=== PATIENT | female | born 1965 | race Caucasian/White ===

== ENCOUNTER → 2016-10-27 | Outpatient (CLI) | payer OTHER ==
[2016-10-27 17:23] LABS: BASO % 0.4 %; BASO ABS # 0.03 K/uL (0-0.2); COMPLETE YES; EOS % 2.1 %; HEMATOCRIT 39.8 % (37-47); IG% 0.1 %; LYMPH % 25.3 %; LYMPH ABS # 1.77 K/uL (1.2-3.4); MEAN CELL VOLUME 84.7 fL (80-100); MEAN CORPUSCULAR HEMOGLOBIN 27.4 pg (25-34); MEAN CORPUSCULAR HGB CONC 32.4 g/dl (32-36); MEAN PLATELET VOLUME 11.5 fL (7.4-10.4); MONO % 11.4 %; NEUT % 60.7 %; PLATELET COUNT 244 K/uL (130-400); WHITE BLOOD COUNT 6.99 K/uL (4.8-10.8)
[2016-10-27 17:33] LABS: ALT/SGPT 19 U/L (12-78); BLOOD UREA NITROGEN 14 mg/dl (7-18); CALCIUM 9.1 mg/dl (8.5-10.1); CARBON DIOXIDE 28 mmol/L (21-32); CHLORIDE 107 mmol/L (98-107); CHOLESTEROL 55 mg/dl (0-200); CREATININE 0.84 mg/dl (0.60-1.20); GLUCOSE 93 mg/dl (70-99); POTASSIUM 3.9 mmol/L (3.5-5.1); SODIUM 138 mmol/L (136-145)
[2016-10-27 17:44] LABS: ALB/GLOB RATIO 0.9 (0.9-2); ALKALINE PHOSPHATASE 73 U/L (45-117); AST/SGOT 21 U/L (15-37); CHOLESTEROL/HDL RATIO 0.9; HDL CHOLESTEROL 59 mg/dl; TRIGLYCERIDES 55 mg/dl (0-150); VERY LOW DENSITY LIPOPROT CALC 11 mg/dl
[2016-10-28 08:16] LABS: ESTIMATED AVERAGE GLUCOSE 108 mg/dl; HA1C FLAG Normal (Normal)
== END | disposition home or self-care (01) ==
LOC: C.LABPVFM 15:30
PROVIDERS: ATTEND Neuromusculoskeletal Medicine & OMM
DX: Z00.00 Encounter for general adult medical examination without abnormal findings (principal); I10 Essential (primary) hypertension

== ENCOUNTER 2019-01-09 17:18 | Observation (INO) ==
[2019-01-09 17:57] LABS: Basophils # (auto) 0.04 K/uL (0-0.2); Basophils % (auto) 0.4 %; Eosinophils # (auto) 0.08 K/uL (0-0.5); Eosinophils % (auto) 0.9 %; Hematocrit (blood only) 47.2 % (37-47); Hemoglobin 15.6 g/dL (12.0-16.0); Immature Granulocytes # (auto) 0.02 K/uL (0.00-0.02); Immature Granulocytes % (auto) 0.2 %; Lymphocytes # (auto) 2.26 K/uL (1.2-3.4); Lymphocytes % (auto) 24.7 %; Mean Corpuscular Hemoglobin 28.4 pg (25-34); Mean Corpuscular Hgb Conc 33.1 g/dL (32-36); Mean Platelet Volume 11.8 fL (7.4-10.4); Monocytes # (auto) 1.11 K/uL (0.11-0.59); Monocytes % (auto) 12.1 %; Neutrophils # (auto) 5.65 K/uL (1.4-6.5); Neutrophils % (auto) 61.7 %; Platelet Count 265 K/uL (130-400); RDW Coefficient of Variation 13.8 % (11.5-14.5); RDW Standard Deviation 42.9 fL (36.4-46.3); Red Blood Count 5.49 M/uL (4.2-5.4); White Blood Count 9.16 K/uL (4.8-10.8)
[2019-01-09] MEDS ORDERED: HydrALAZINE HCL 20 MG/ML VIAL IV STA ×2 (17:58→18:35)
[2019-01-09 18:10] LABS: Alanine Aminotransferase 71 U/L (12-78); Albumin Level 4.3 gm/dl (3.4-5.0); Aspartate Aminotransferase 26 U/L (15-37); BUN Creatinine Ratio 17.4 (10-20); Blood Urea Nitrogen 21 mg/dl (7-18); Calcium 10.3 mg/dl (8.5-10.1); Carbon Dioxide 24 mmol/L (21-32); Chloride 102 mmol/L (98-107); Est GFR (African American) 59.2; Glucose 99 mg/dl (70-99); Lipase 195 U/L (73-393); Potassium 3.4 mmol/L (3.5-5.1); Sodium 133 mmol/L (136-145)
[2019-01-09 18:15] LABS: Albumin Globulin Ratio 0.9 (0.9-2); Alkaline Phosphatase 79 U/L (45-117); Bilirubin,Total 0.5 mg/dl (0.2-1); Globulin 4.8 gm/dl (2.5-4.0); Total Protein 9.1 gm/dl (6.4-8.2); Troponin I < 0.015 ng/ml (0-0.045)
--- NOTE | 2019-01-09 18:28 | XRay Report ---
XR chest 1V portable HISTORY: 53 years-old Female Chest Pain acute atypical chest pain COMPARISON: None available TECHNIQUE: Portable AP view of the chest FINDINGS: Cardiomediastinal and hilar silhouettes are within normal limits. Minimal linear left basilar opaciti es suggest atelectasis versus scarring. There is no pneumothorax, pleural effusion, focal airspace co nsolidation or overt pulmonary edema. Bones of the chest appear grossly intact. Degenerative changes of the spine. IMPRESSION: No acute process. The above report was generated using voice recognition software. It may contain grammatical, syntax o r spelling errors. Electronically signed by: Jose Huertas M.D. 01/09/2019 6:27 PM
[2019-01-09] MEDS ORDERED: NITROGLYCERIN 2% OINTMENT 30GM TUBE EXT SCH (18:45)
[2019-01-09] MEDS ORDERED: POTASSIUM CHLORIDE 20 MEQ TABCR PO STA (18:45)
--- NOTE | 2019-01-09 20:08 | History & Physical Report ---
Date of Service January 09, 2019 Assessment & Plan (1) Hypertension: Annemarie is a 53-year-old female with a past medical history of hypertension who presents to the emergency department on referral from her primary care provider who noted hypertension with shortness of breath and bigeminy on office EKG. Hypertensive urgency Patient has a history of hypertension previously normalized on hydrochlorothiazide but which she has not taken in a year (switch to a homeopathic diuretic). She restarted her hydrochlorothiazide last week when she became shortness of breath has been taking it daily for several days, but was noted to have high blood pressure on her outpatient visit. She is unaware of what her blood pressure is been in the last year. On exam blood pressure in left arm was 229/103, right arm pressure 191/100 CT angio for evaluation of dissection given hypertension, pain between shoulder blades, and systolic pressure difference greater than 20 between arms. Continue hydrochlorothiazide 12.5 mg daily, plan to increase to 25 tomorrow. Slower change 2/2 potential for watershed. Hydralazine 10 mg p.o. every 4 hours PRN for systolic greater than 180, diastolic greater than 100 CBC every 3 days Family history of hypertension with hypothyroidism, TSH, free T4, T3 ordered. Referrable panel over reflex as with patient's clinical symptoms Shortness of breath Patient reportedly with hypertension due to fluid overload in the past, no history of pulmonary edema or leg swelling Persistent shortness of breath and exercise limitation despite resolution and cold-like symptoms last month Hypertension treatment as above TTE ordered as below Intermittent bigeminy with high PVC load Patient has new bigeminy on admitting EKG, during clinical exam bigeminy was not observed but high PVC burden every 3-8 beats was seen. 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 Patient reports she drinks 80+ ounces of water per day "half my body weight water per day " Target fluid intake approximately 60 ounces per day Oral potassium repletion, magnesium normal Phosphorus pending BMP daily DVT prophylaxis: SCDs Diet: Regular CODE STATUS: Full code Disposition: Med telemetry (2) Abnormal EKG: (3) Anemia: (4) Weakness: History of Present Illness Chief Complaint: Shortness of Breath, Bigeminy Primary Care Provider: VIRGIE Pickett Annemarie Fournier is a 53-year-old female with a past medical history of hypertension who presents to the emergency room by referral from her PCP who noted hypertension and bigeminy during an outpatient office visit. Patient reports that she is traveling in [place] last month when she had a "horrible cold" that last several weeks and during which she had shortness of breath and congestion. Her symptoms resolved in early to mid December, but she is continued to have severe exercise limitation and shortness of breath with exertion and walking. She denies any chest pain, chest pressure, jaw pain, shoulder pain but endorses a slight 1/10 back pain which feels like muscle pain in between her shoulder blades 2-3 times per day which lasts for couple seconds to a couple of minutes. She has not had any fevers, chills, or sweats. No rashes, skin changes, or insect bites. Patient reports she has a history of hypertension which was previously controlled with hydrochlorothiazide. This was prescribed about a year and a half ago, and following a hydrochlorothiazide 25 mg daily regimen her blood pressure normalized. Approximately 1 year ago she switched her hydrochlorothiazide for an sicz-llz-nbzterf herbal fluid pill as a natural alternative to medication. She had not been back to her primary care physician, and did not check her blood pressure so is unaware of what her blood pressure has been in the last several months. She started taking her hydrochlorothiazide again last week due to her shortness of breath and a feeling that she could "hear fluid in her lungs "when she breathes. She endorses 30 pound weight gain in the last year and a half following menopause. She reports she eats a clean diet which is low in salt and fat. She tries to drink half her body weight and water (80 ounces) every day. She reports she pees several times a day, clear. Family history: Maternal grandmother had hypertension. She does not know her mother's history, was adopted by her paternal grandmother. Endorses family history of hyperthyroid requiring ablation. Denies stroke, blood clots, heart attack. Medical history: Reviewed. Hypertension, anemia Medications: Hydrochlorothiazide 12.5 mg, recently restarted. 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 with her Tobacco: No current or former use Alcohol: Endorses drinking in college, no recent alcohol use Recreational drug: Denies. Supplements: Denies taking any steroids, creatine powders, or pre-workout powders. Takes vitamin supplements including vitamin D3, calcium, magnesium, vitamin B12, and iron daily. Allergies Allergy/AdvReac Type Severity Reaction Status Date / Time Penicillins Allergy Severe Turned blue Verified 01/09/19 18:07 egg AdvReac Intermediate Gastrointestinal Verified 01/09/19 18:07 Upset Home Medications Home Medications Medication Instructions Recorded Confirmed Type guaifenesin [Mucinex] 600 mg PO Q12H PRN 01/09/19 01/09/19 History hydrochlorothiazide 12.5 mg PO DAILY PRN 01/09/19 01/09/19 History iron 18 mg PO DAILY 01/09/19 01/09/19 History uyqogyhmiqxy-bxivvqvs-zfvhux 1 tab PO DAILY 01/09/19 01/09/19 History [Multivitamin 50 Plus] Past Med/Surg History Medical History Abnormal EKG Hypertension Surgical History No history of previous surgery Family History Other Diabetes Social History Preferred Language: Kyrgyz Communication Ability: Effective Economics Faculty Member Required: No Beliefs That Will Affect Care: None marital status: Single Current Living Situation: Spouse 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 NAD. Cooperative. Thought process linear, goal-directed. Speech fluent with normal prosody. HEENT: Atraumatic, normocephalic. External ear anatomy normal, external nose anatomy normal. Pupils equal and reactive to light and accommodation bilaterally. Extraocular movements intact without nystagmus. No nasolabial fold flattening or increased tone. Facial sensation and strength intact in all distributions. Mucous membranes moist. Posterior pharynx without erythema/exudate, uvula midline. No anterior or posterior cervical adenopathy, no clavicular adenopathy. Neck supple. Pulm: CTAB A&P. -wheezes, -rales, -rhonchi. Symmetrical chest rise. No increase work of breathing. No respiratory distress. Cardiac: RRR, -mrg. Radial pulses intact and symmetrical. PT pulses intact and symmetrical. Systolic blood pressure in left arm 229/103, right arm 190/90s. Abdominal: Nontender, nondistended, soft. BS present. Extremity: Sensation to soft touch intact in fingertips and hallux bilaterally and symmetrical. Finger flexion/extension, interosseous, wrist flexion/extension, elbow flexion/extension, shoulder flexion/extension/internal rotation/external rotation, hip flexion, knee flexion/extension, ankle plantarflexion/dorsiflexion intact with 5/5 strength bilaterally. Results & Data Vital Signs (Past 12 Hours) Vital Signs Temp Pulse Pulse Resp BP BP Pulse Ox 01/09/19 19:30 101 H 16 229/103 H 96 01/09/19 18:40 99 H 18 01/09/19 18:31 101 H 19 169/79 H 98 01/09/19 18:30 105 H 15 01/09/19 18:20 94 H 20 01/09/19 18:10 97 H 20 01/09/19 18:01 101 H 16 01/09/19 18:00 104 H 17 244/180 H 01/09/19 17:53 98 01/09/19 17:50 100 H 12 01/09/19 17:40 101 H 18 225/106 H 01/09/19 17:36 104 H 17 01/09/19 17:23 36.6 C 50 L 20 241/118 H 99 Code Status & VTE Plan VTE Prophylaxis Plan VTE Prophylaxis will be ordered: Yes Supervising Physician Co-Signing Physician Notes Patient seen and examined, chart reviewed, case discussed with Dr. Estrada and I agree with his assessment and plan as documented above. Briefly, patient is a 53-year-old female with history of hypertension. She was placed on HCTZ approximately 1.5 years ago with market improvement in blood pressure. She has since discontinue her HCTZ. Patient has been having some shortness of breath. She was seen in the outpatient setting and restart her HCTZ. She was found to be hypertensive with ventricular bigeminy during outpatient visit and was subsequently sent to the ER. On physical exam she is afebrile, tachycardic, hypertensive to 244/180, bigeminy noted on monitor and EKG Generalpatient quite anxious in appearance, nontoxic, resting comfortably in bed Skinwarm, dry, intact, no rashes/lesions HEENTnormocephalic/atraumatic, pupils equal round reactive to light, extraocular muscles intact, no papilledema noted on limited funduscopic exam, moist mucous membranes, neck supple, no thyromegaly, no JVD Heartplus S1/S2, irregularly irregular, bigeminy noted on monitor, pulses 2+, equal bilaterally, blood pressure discrepancy left upper extremity 228/123, right upper extremity 191/100 Lungsequal air entry bilaterally, no rales/rhonchi/wheezes Abdomenbowel sounds present, soft, nontender/nondistended Extremitieswarm, well-perfused, 2+ pulses, no edema Neurogrossly intact, patient awake alert and oriented x4, appropriate, speech intact, moving all extremities with 5 out of 5 strength Labs and images reviewed Sodium = 133, potassium = 3.4, BUN = 21, creatinine = 1.21, calcium = 10.3 Chest x-ray with no acute process CTA with no dissection or thoracic pathology Assessment/[id number]-63-ton[age]-old female with history of hypertension presenting with hypertensive urgency. Blood pressure 244/180 on presentation (map = 201). Patient asymptomatic at present, specifically no headache, visual changes, chest pain, shortness of breath, no papilledema noted on funduscopic exam albeit limited/nondilated. She has been complaining of intermittent interscapular pain, blood pressure discrepancy of roughly 30 points between extremitiesraises some concern for aortic dissection. CTA unremarkable. Thyroid studies within normal limits. -Patient with hypertensive urgency. No end organ dysfunction at this time - allows for slow correction of blood pressure with p.o. agents. -Continue HCTZ, will increase to 25 mg daily tomorrow. Patient may benefit from additional treatment with calcium channel corby or beta-corby given degree of hypertension as well as bigeminy. -P.o. hydralazine as needed -Check 2D echo -Check ionized calcium in a.m. -mildly elevated on chemistry today -Remainder of plan as above Resident Activity Tracking Resident Involvement: Resident Care Provided Care Provided: Adult Hospital Medicine (1) Anemia Anemia type: unspecified type Qualified Code(s): D64.9 - Anemia, unspecified
[2019-01-09] MEDS ORDERED: OPTIRAY 320 125ml IV PRN (20:40)
[2019-01-09] MEDS ORDERED: hydroCHLOROthiazide 25 MG TAB PO PRN (20:51)
[2019-01-09] MEDS ORDERED: HydrALAZINE 10 MG TAB PO PRN (20:51)
[2019-01-09] MEDS ORDERED: ACETAMINOPHEN 325 MG TAB PO PRN (20:51)
[2019-01-09] MEDS ORDERED: guaiFENesin 600 MG TABCR PO PRN (20:51)
[2019-01-09] MEDS ORDERED: HydrALAZINE 10 MG TAB PO STA (20:51)
[2019-01-09 21:21] LABS: Phosphorus 2.7 mg/dl (2.5-4.9); T4 Free Thyroxine 1.13 ng/dl (0.8-1.6); Thyroid Stimulating Hormone 2.08 uIu/ml (0.300-4.500)
--- NOTE | 2019-01-09 21:22 | CT Scan Report ---
CT angio chest dissec wo/w con HISTORY: 53 years-old Female r/o aortic dissection acute chest pain COMPARISON: Chest radiograph of same day TECHNIQUE: CTA of the chest was obtained both with and without the use of 120 mL Optiray 320 IV contr ast. 3-D coronal and sagittal MIPS were obtained from the axial data set and were submitted for revie w. All measurements were obtained according to NASCET criteria. A dose lowering technique was used co nsistent with the principals joycelyn ENGEL. FINDINGS: CTA CHEST: The noncontrast scan demonstrates no intramural hematoma. Mild calcified plaque of the thoracic aorti c arch and aortic annulus. Heart is mildly enlarged. No pericardial effusion. There is no thoracic ao rtic aneurysm or dissection. No mediastinal hematoma. Patency of the imaged great vessels. Reflux of contrast into the IVC and hepatic veins. The opacified pulmonary arterial tree is unremarkable. No ev idence of pulmonary thromboembolic disease. CT CHEST: Subcentimeter thyroid nodules measure up to 9 mm within the isthmus. No adenopathy by CT size criteri a. There are multiple indeterminate lesions noted about the breasts, left greater than right multiple which appear to be cystic measuring up to 2.1 cm and the inferior left breast. There is no pneumotho rax, pleural effusion or overt pulmonary edema. Mild linear subsegmental atelectasis/scarring of the inferior segment lingula. No focal airspace consolidation typical for pneumonia. There are no suspici ous pulmonary nodules or masses. 2 mm calcified granuloma of the left upper lobe. Central airways are patent. Mild nonspecific bilateral bronchial wall thickening. Moderate wall thickening of the distal esophagus with mild adjacent inflammatory stranding. Hypodense foci of the left hepatic lobe measuring up to 1.3 cm suggest probable cyst. Degenerative changes of the shoulders and spine. IMPRESSION: 1. Unremarkable CTA of the chest. 2. No adenopathy, pleural effusion or focal airspace consolidation typical for pneumonia. 3. Moderate wall thickening of the distal esophagus with mild adjacent inflammatory stranding. Correl ate clinically to exclude esophagitis. 4. Multiple lesions of the left greater than right bilateral breasts most of which appear to be cysti c. Finding should be correlated with mammography. The above report was generated using voice recognition software. It may contain grammatical, syntax o r spelling errors. Electronically signed by: Jose Huertas M.D. 01/09/2019 9:20 PM
--- NOTE | 2019-01-09 21:25 | Emergency Department Note ---
Entered by Sunil Lambert acting as a scribe for History of Present Illness General Chief complaint: Arrhythmia/Palpitations Stated complaint: IRREGULAR HEART BEAT Source: patient Limitations: no limitations History of Present Illness Location: chest Pain Consistency: + now resolved Maximum Pain Intensity: 1 Relieved By: + other (iron pills relieved dizziness) Exacerbated By: + movement Associated symptoms: + denies other symptoms (diarrhea, runny nose, congestion); no cough and no nausea/vomiting The patient is a 53 year old female who presents to the Emergency Room with complaints of now-resolved SOB. She states she has SOB with exertion. The patient states she went to see her PCP today and her PCP noticed she had an abnormal EKG and she was hypertensive so she was sent to the ED. The patient states she had a cough, congestion, and a runny nose on November 22. She states she was traveling and states she got back in early December and her symptoms resolved. She states she has been having some dizziness the past couple weeks but states it has resolved with iron pills. The patient denies headache, change of vision, nausea, vomiting, diarrhea, and chest pain. She states she recently started ACTZ 12.5 mg and states she was not it for a year. Home Medications Home Medications Medication Instructions Recorded Confirmed Type guaifenesin [Mucinex] 600 mg PO Q12H PRN 01/09/19 01/09/19 History hydrochlorothiazide 12.5 mg PO DAILY PRN 01/09/19 01/09/19 History iron 18 mg PO DAILY 01/09/19 01/09/19 History rjqxodhafwol-ulzryhrq-sutasb 1 tab PO DAILY 01/09/19 01/09/19 History [Multivitamin 50 Plus] Allergies Allergy/AdvReac Type Severity Reaction Status Date / Time Penicillins Allergy Severe Turned blue Verified 01/09/19 18:07 egg AdvReac Intermediate Gastrointestinal Verified 01/09/19 18:07 Upset Past Med/Surg History Medical History Abnormal EKG Hypertension Surgical History No history of previous surgery Family History Other Diabetes Social History Preferred Language: Kinyarwanda Communication Ability: Effective Office Communication Professor Required: No Beliefs That Will Affect Care: None marital status: Single Current Living Situation: Spouse 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 and A total of 10 systems reviewed and were otherwise negative Physical Exam Vital Signs Vital Signs - 24 hr 01/09/19 17:23 01/09/19 17:36 01/09/19 17:40 Temperature 36.6 C Temperature Source Oral Pulse Rate 50 L 104 H 101 H Pulse Rate [Right] Pulse Rhythm Regular Pulse Rhythm [Right] Pulse Strength Normal Pulse Strength [Right] Respiratory Rate 20 17 18 Respiratory Effort / Characteristics Non-Labored Spontaneous Respiratory Depth Normal Respiratory Pattern Regular Blood Pressure 241/118 H 225/106 H Blood Pressure [Right Arm] Blood Pressure Mean 159 162 Blood Pressure Mean [Right Arm] Blood Pressure Position Sitting Pulse Oximetry 99 Oxygen Delivery Method Room Air Sepsis Recent Fever Within 48 Hours No Sepsis New/Unexplained Change in Mental Status No Sepsis Action Taken by Nursing No Action Required 01/09/19 17:50 01/09/19 17:53 01/09/19 18:00 Temperature Temperature Source Pulse Rate 100 H 104 H Pulse Rate [Right] Pulse Rhythm Pulse Rhythm [Right] Pulse Strength Pulse Strength [Right] Respiratory Rate 12 17 Respiratory Effort / Characteristics Respiratory Depth Respiratory Pattern Blood Pressure 244/180 H Blood Pressure [Right Arm] Blood Pressure Mean 188 Blood Pressure Mean [Right Arm] Blood Pressure Position Pulse Oximetry 98 Oxygen Delivery Method Room Air Sepsis Recent Fever Within 48 Hours Sepsis New/Unexplained Change in Mental Status Sepsis Action Taken by Nursing 01/09/19 18:01 01/09/19 18:10 01/09/19 18:20 Temperature Temperature Source Pulse Rate 101 H 97 H 94 H Pulse Rate [Right] Pulse Rhythm Pulse Rhythm [Right] Pulse Strength Pulse Strength [Right] Respiratory Rate 16 20 20 Respiratory Effort / Characteristics Respiratory Depth Respiratory Pattern Blood Pressure Blood Pressure [Right Arm] Blood Pressure Mean Blood Pressure Mean [Right Arm] Blood Pressure Position Pulse Oximetry Oxygen Delivery Method Sepsis Recent Fever Within 48 Hours Sepsis New/Unexplained Change in Mental Status Sepsis Action Taken by Nursing 01/09/19 18:30 01/09/19 18:31 01/09/19 18:40 Temperature Temperature Source Pulse Rate 105 H 101 H 99 H Pulse Rate [Right] Pulse Rhythm Pulse Rhythm [Right] Pulse Strength Pulse Strength [Right] Respiratory Rate 15 19 18 Respiratory Effort / Characteristics Respiratory Depth Respiratory Pattern Blood Pressure 169/79 H Blood Pressure [Right Arm] Blood Pressure Mean 107 Blood Pressure Mean [Right Arm] Blood Pressure Position Pulse Oximetry 98 Oxygen Delivery Method Sepsis Recent Fever Within 48 Hours Sepsis New/Unexplained Change in Mental Status Sepsis Action Taken by Nursing 01/09/19 19:30 Temperature Temperature Source Pulse Rate Pulse Rate [Right] 101 H Pulse Rhythm Pulse Rhythm [Right] Regular Pulse Strength Pulse Strength [Right] Normal Respiratory Rate 16 Respiratory Effort / Characteristics Non-Labored Spontaneous Respiratory Depth Normal Respiratory Pattern Blood Pressure Blood Pressure [Right Arm] 229/103 H Blood Pressure Mean Blood Pressure Mean [Right Arm] 145 Blood Pressure Position Pulse Oximetry 96 Oxygen Delivery Method Room Air Sepsis Recent Fever Within 48 Hours Sepsis New/Unexplained Change in Mental Status Sepsis Action Taken by Nursing GENERAL: alert, well nourished, no distress, non-toxic. Sitting up in bed. EYE EXAM: normal conjunctiva, PERRL and EOM's intact OROPHARYNX: no exudate, no erythema, lips, buccal mucosa, and tongue normal and mucous membranes are moist NECK: supple, no nuchal rigidity, no adenopathy, non-tender LUNGS: Clear to auscultation. Normal chest wall mechanics HEART: no murmurs, S1 normal and S2 normal. Slightly irregular rhythm. ABDOMEN: abdomen soft, non-tender, normo-active bowel sounds, no masses, no rebound or guarding. BACK: Back is symmetrical on inspection and there is no deformity, no midline tenderness, no CVA tenderness. SKIN: no rashes and no bruising UPPER EXTREMITIES: upper extremities are grossly normal. LOWER EXTREMITIES: No pitting edema. NEURO EXAM: Normal sensorium, cranial nerves II-XII grossly intact, normal spe ech, no gross weakness of arms, no gross weakness of legs. Course Course ED COURSE: Vital signs were reviewed and showed HTN The patients medical record was reviewed The above diagnostic studies were performed and reviewed. ED treatments and interventions as stated above. 1754: The patient was evaluated in room C2B. A complete history and physical examination was performed. 1843: Upon reevaluation, the patient is getting admitted. I discussed my findings with the patient and she understands and agrees with the treatment plan. 1844: I discussed the patient's case with Dr. Marks - [facility] ist. He will evaluate the patient for further management Based on the patients age, coexisting illnesses, exam and lab findings the decision to treat as an inpatient was made. The patient remained stable while under my care. The patient will be evaluated for further management. Administered Medications Ioversol (Optiray 320 125ml) 120 ml IV ONCE PRN PRN Reason: Interaction Checking Stop: 01/13/19 20:39 Last Admin: 01/09/19 20:41 Dose: 120 ml Documented by: [id number] Discontinued Medications Hydralazine HCl (Hydralazine Hcl) 10 mg IV NOW STA Stop: 01/09/19 17:59 Last Admin: 01/09/19 18:18 Dose: 10 mg Documented by: [id number] Hydralazine HCl (Hydralazine Hcl) 10 mg IV NOW STA Stop: 01/09/19 18:36 Last Admin: 01/09/19 18:43 Dose: Not Given Documented by: [id number] Hydralazine HCl (Apresoline) 10 mg PO NOW STA Stop: 01/09/19 20:52 Last Admin: 01/09/19 21:26 Dose: 10 mg Documented by: [id number] Potassium Chloride (Klor-Con M20) 40 meq PO NOW STA Stop: 01/09/19 18:46 Last Admin: 01/09/19 19:29 Dose: 40 meq Documented by: [id number] Medical Decision Making Differential Diagnosis Differential diagnoses includes but is not limited to pneumonia, bronchitis, COPD/Asthma exacerbation, pneumothorax, pulmonary embolism, congestive heart failure, acute coronary syndrome Medical Records Attestation: I reviewed the patient's medical records. Home Medications Current Medication List: was personally reviewed by me Laboratory Data Attestation: I reviewed the patient's lab results. Result diagrams: 01/09/19 17:41 01/09/19 17:41 Lab Results 01/09/19 01/09/19 01/09/19 Range/Units 17:41 17:41 17:41 WBC 9.16 (4.8-10.8) K/uL RBC 5.49 H (4.2-5.4) M/uL Hgb 15.6 (12.0-16.0) g/dL Hct 47.2 H (37-47) % MCV 86.0 (80-100) fL MCH 28.4 (25-34) pg MCHC 33.1 (32-36) g/dL RDW Std Deviation 42.9 (36.4-46.3) fL RDW Coeff of Dmitry 13.8 (11.5-14.5) % Plt Count 265 (130-400) K/uL MPV 11.8 H (7.4-10.4) fL Immature Gran % (Auto) 0.2 % Neut % (Auto) 61.7 % Lymph % (Auto) 24.7 % [place] % (Auto) 12.1 % Eos % (Auto) 0.9 % Baso % (Auto) 0.4 % Immature Gran # (Auto) 0.02 (0.00-0.02) K/uL Neut # (Auto) 5.65 (1.4-6.5) K/uL Lymph # (Auto) 2.26 (1.2-3.4) K/uL [place] # (Auto) 1.11 H (0.11-0.59) K/uL Eos # (Auto) 0.08 (0-0.5) K/uL Baso # (Auto) 0.04 (0-0.2) K/uL Sodium 133 L (136-145) mmol/L Potassium 3.4 L (3.5-5.1) mmol/L Chloride 102 (98-107) mmol/L Carbon Dioxide 24 (21-32) mmol/L Anion Gap 7.0 (3-11) BUN 21 H (7-18) mg/dl Creatinine 1.21 H (0.6-1.2) mg/dl Est Cr Clr Drug Dosing 62.0 ml/min Est GFR ( Amer) 59.2 Est GFR (Non-Af Amer) 51.0 BUN/Creatinine Ratio 17.4 (10-20) Glucose 99 (70-99) mg/dl Calcium 10.3 H (8.5-10.1) mg/dl Phosphorus (2.5-4.9) mg/dl Magnesium 2.2 (1.8-2.4) mg/dl Total Bilirubin 0.5 (0.2-1) mg/dl AST 26 (15-37) U/L ALT 71 (12-78) U/L Alkaline Phosphatase 79 (45-117) U/L Troponin I < 0.015 (0-0.045) ng/ml Total Protein 9.1 H (6.4-8.2) gm/dl Albumin 4.3 (3.4-5.0) gm/dl Globulin 4.8 H (2.5-4.0) gm/dl Albumin/Globulin Ratio 0.9 (0.9-2) Lipase 195 (73-393) U/L TSH (0.300-4.500) uIu/ml Free T4 (0.8-1.6) ng/dl Total T3 (0.60-1.81) ng/ml Hepatitis C Ab Screen (Neg) 01/09/19 01/09/19 01/09/19 Range/Units 17:45 17:45 17:53 WBC (4.8-10.8) K/uL RBC (4.2-5.4) M/uL Hgb (12.0-16.0) g/dL Hct (37-47) % MCV (80-100) fL MCH (25-34) pg MCHC (32-36) g/dL RDW Std Deviation (36.4-46.3) fL RDW Coeff of Dmitry (11.5-14.5) % Plt Count (130-400) K/uL MPV (7.4-10.4) fL Immature Gran % (Auto) % Neut % (Auto) % Lymph % (Auto) % Page % (Auto) % Eos % (Auto) % Baso % (Auto) % Immature Gran # (Auto) (0.00-0.02) K/uL Neut # (Auto) (1.4-6.5) K/uL Lymph # (Auto) (1.2-3.4) K/uL [place] # (Auto) (0.11-0.59) K/uL Eos # (Auto) (0-0.5) K/uL Baso # (Auto) (0-0.2) K/uL Sodium (136-145) mmol/L Potassium (3.5-5.1) mmol/L Chloride (98-107) mmol/L Carbon Dioxide (21-32) mmol/L Anion Gap (3-11) BUN (7-18) mg/dl Creatinine (0.6-1.2) mg/dl Est Cr Clr Drug Dosing ml/min Est GFR ( Amer) Est GFR (Non-Af Amer) BUN/Creatinine Ratio (10-20) Glucose (70-99) mg/dl Calcium (8.5-10.1) mg/dl Phosphorus 2.7 (2.5-4.9) mg/dl Magnesium (1.8-2.4) mg/dl Total Bilirubin (0.2-1) mg/dl AST (15-37) U/L ALT (12-78) U/L Alkaline Phosphatase (45-117) U/L Troponin I (0-0.045) ng/ml Total Protein (6.4-8.2) gm/dl Albumin (3.4-5.0) gm/dl Globulin (2.5-4.0) gm/dl Albumin/Globulin Ratio (0.9-2) Lipase (73-393) U/L TSH 2.080 (0.300-4.500) uIu/ml Free T4 1.13 (0.8-1.6) ng/dl Total T3 0.85 (0.60-1.81) ng/ml Hepatitis C Ab Screen Neg (Neg) Imaging Data Radiologist's Impression: Radiology results as stated below per my review and the radiologist's interpretation: XR chest 1V portable HISTORY: 53 years-old Female Chest Pain acute atypical chest pain COMPARISON: None available TECHNIQUE: Portable AP view of the chest FINDINGS: Cardiomediastinal and hilar silhouettes are within normal limits. Minimal linear left basilar opacities suggest atelectasis versus scarring. There is no pneumothorax, pleural effusion, focal airspace consolidation or overt pulmonary edema. Bones of the chest appear grossly intact. Degenerative changes of the spine. IMPRESSION: No acute process. The above report was generated using voice recognition software. It may contain grammatical, syntax or spelling errors. Electronically signed by: Jose Huertas M.D. 01/09/2019 6:27 PM ECG Data Attestation: I personally reviewed and interpreted this ECG as follows: Indication: + palpitations Rate (beats per minute): 102 Rhythm: + sinus rhythm ECG Findings: + Bigeminy and + Other (Non-specific acute ST wave changes in inferior, anterior, and lateral leads) Comparison ECG Date: no prior available Blood Pressure Blood Pressure Findings: Elevated blood pressure Blood Pressure Disposition: Referred to patients primary care provider MDM Narrative Patient is a 53-year-old female that presents to the ER referred in by her PCP as she was having shortness of breath with exertion earlier this month which is now improved. She was found to be significantly hypertensive with systolic blood pressures in the 200s in the office and an EKG that showed bigeminy. Referred into the ER. Upon presentation here initial systolics were in the 210s and then they went to 240. IV was stable sputum was obtained and showed no significant leukocytosis or anemia. BMP with a mild hyponatremia and hypokal emia. LFTs bilirubin and troponin were negative. TSH lipase were unremarkable as well. Chest x-ray was unremarkable without any focal infiltrate. Patient was given IV fluids and IV hydralazine. Systolic blood pressure trended down to 180. This was an appropriate drop from 240. Did not give any additional medications at this time. She was monitored closely. Updated bedside. Discussed with the hospitalist admitted for hypertensive urgency associated with bigeminy. Impression & Plan Hypertensive urgency, Bigeminy, Abnormal EKG, Palpitations Discharge Plan Visit Data *Final* Discharge Date/Time: 01/09/19 20:21 Chief Complaint: Arrhythmia/Palpitations Stated Complaint: IRREGULAR HEART BEAT ED Provider: Jesús Panda Discharge Problem: Hypertensive urgency, Bigeminy, Abnormal EKG, Palpitations Patient Disposition: Admitted As Inpatient Discharge Instructions Interventions: ED Discharge Assessment Last Done: 01/09/19 20:21 The scribe's documentation has been prepared under my direction and personally reviewed by me in its entirety. I confirm that the note above accurately reflects all work, treatment, procedures, and medical decision making performed by me.
--- NOTE | 2019-01-09 23:27 | Billing Data ---
Coding Level of Care Code 60163 OBS Care - Level 3
[2019-01-10 07:03] LABS: Basophils # (auto) 0.03 K/uL (0-0.2); Basophils % (auto) 0.4 %; Eosinophils # (auto) 0.09 K/uL (0-0.5); Eosinophils % (auto) 1.2 %; Hematocrit (blood only) 43.5 % (37-47); Hemoglobin 14.5 g/dL (12.0-16.0); Immature Granulocytes # (auto) 0.01 K/uL (0.00-0.02); Immature Granulocytes % (auto) 0.1 %; Lymphocytes # (auto) 2.04 K/uL (1.2-3.4); Lymphocytes % (auto) 26.5 %; Mean Corpuscular Hemoglobin 28.7 pg (25-34); Mean Corpuscular Hgb Conc 33.3 g/dL (32-36); Mean Platelet Volume 11.3 fL (7.4-10.4); Monocytes # (auto) 0.92 K/uL (0.11-0.59); Monocytes % (auto) 11.9 %; Neutrophils # (auto) 4.61 K/uL (1.4-6.5); Neutrophils % (auto) 59.9 %; Platelet Count 228 K/uL (130-400); RDW Coefficient of Variation 14.1 % (11.5-14.5); RDW Standard Deviation 43.6 fL (36.4-46.3); Red Blood Count 5.06 M/uL (4.2-5.4)
[2019-01-10 07:37] LABS: BUN Creatinine Ratio 16.1 (10-20); Calcium 9.9 mg/dl (8.5-10.1); Creatinine Clr Calc Pharmacy 80.8 ml/min; Est GFR (African American) 82.4; Est GFR (Non-African American) 71.1; Potassium 3.8 mmol/L (3.5-5.1)
[2019-01-10] MEDS ORDERED: hydroCHLOROthiazide 25 MG TAB PO SCH (09:00)
[2019-01-10] MEDS ORDERED: CEROVITE ADV FORMULA TAB PO SCH (09:00)
--- NOTE | 2019-01-10 15:56 | Hospitalist Progress Note ---
Date of Service January 10, 2019 Assessment & Plan (1) Hypertensive urgency: Annemarie is a 53-year-old female with a PMHx of hypertension (not currently on medication) and iron deficiency anemia who was admitted for hypertensive urgency. Hypertensive urgency -Hx of HTN. Previously treated with HCTZ 25mg. Pt stopped taking it about a year ago, started herself on homeopathic diuretic. -No BP checks or PCP followups, except day of admission when back pain was concerning. Had seen PCP before that in 2017. BP in ED as high as systolic 240, with discordance >20 points between arms CTA with no evidence of dissection -Received 20mg hydralazine in ED and overnight. -One dose of HCTZ this AM, before switching to Lisinopril 20mg this PM due to K+ being on lower side and pt still in bigemeny. Hydralazine 10 mg p.o. every 4 hours PRN for systolic greater than 180, diastolic greater than 100 -continue to monitor Shortness of breath Patient denies this Hx currently. -continue to monitor. Intermittent bigeminy with high PVC load Patient with bigeminy on admitting EKG Troponin negative -stress echo pending Electrolyte abnormalities -Hypokalemia and hyponatremia noted on admission; currently resolved; likely secondary to pt's use of HCTZ for the last week when symptoms began. -Pt has since been switched to Lisinopril to lessen the risk for development Patient also reports she drinks 80+ ounces of water per day "half my body weight water per day " Target fluid intake approximately 60 ounces per day Replete electrolytes as needed DVT prophylaxis: SCDs Diet: Regular CODE STATUS: Full code Dispo: Home pending BP control; results of stress echo Supervising Physician Co-Signing Physician Notes Resident Physician Supervision Note: I independently interviewed and examined the patient and verified the johnson history and physical, reviewed labs and image studies, discussed the case with the resident Dr. Larsen and agree with the findings and care plan. Subjective Ms. George seen this AM. States her SOB has resolved; didn't really seem to think it was an issue at all. States the back pain is still present. 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 Has a Hx of anxiety in her 20s. States the hospital also makes her anxious. Denies any headache, changes to vision, cough, runny nose, sore throat, dizziness, weakness, chest pain, SOB, palpitations, abdominal pain, diarrhea or constipation, swelling in hands or feet or numbness or tingling anywhere. Review of Systems Review of Systems: All systems reviewed & are unremarkable except as noted in HPI & below Physical Exam Physical Exam: General: Alert, oriented. 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 Skin: No noted rashes or bruises Psych: Appropriate mood and affect Neuro: No gross deficits HEENT: NC/AT, PERRLA, EOMI, oropharynx moist. Chest: Nontender to palpation. CV: Irregularly irregular rhythm, No murmurs appreciated Resp: Breath sounds clear bilaterally, no increased effort of breathing. No crackles/rhonchi/rales. Abdomen: Soft, nontender, nondistended. No guarding. No organomegaly appreciated. Extremities: No edema in lower extremities bilaterally. Results & Data Vital Signs (Past 12 Hours) Vital Signs Temp Pulse Pulse Resp BP Pulse Ox 01/10/19 15:17 36.7 C 68 18 175/102 H 96 01/10/19 14:32 180/82 H 01/10/19 13:56 80 01/10/19 11:29 36.7 C 16 181/85 H 93 01/10/19 07:24 36.9 C 87 16 178/84 H 98 01/10/19 04:25 36.7 C 44 L 20 147/75 H 97 Laboratory Results Laboratory Results - last 24 hr 01/09/19 01/09/19 01/09/19 17:41 17:41 17:41 WBC 9.16 RBC 5.49 H Hgb 15.6 Hct 47.2 H MCV 86.0 MCH 28.4 MCHC 33.1 RDW Std Deviation 42.9 RDW Coeff of Dmitry 13.8 Plt Count 265 MPV 11.8 H Immature Gran % (Auto) 0.2 Neut % (Auto) 61.7 Lymph % (Auto) 24.7 [place] % (Auto) 12.1 Eos % (Auto) 0.9 Baso % (Auto) 0.4 Immature Gran # (Auto) 0.02 Neut # (Auto) 5.65 Lymph # (Auto) 2.26 [place] # (Auto) 1.11 H Eos # (Auto) 0.08 Baso # (Auto) 0.04 Sodium 133 L Potassium 3.4 L Chloride 102 Carbon Dioxide 24 Anion Gap 7.0 BUN 21 H Creatinine 1.21 H Est Cr Clr Drug Dosing 62.0 Est GFR ( Amer) 59.2 Est GFR (Non-Af Amer) 51.0 BUN/Creatinine Ratio 17.4 Glucose 99 Calcium 10.3 H Ionized Calcium Phosphorus Magnesium 2.2 Total Bilirubin 0.5 AST 26 ALT 71 Alkaline Phosphatase 79 Troponin I < 0.015 Total Protein 9.1 H Albumin 4.3 Globulin 4.8 H Albumin/Globulin Ratio 0.9 Lipase 195 TSH Free T4 Total T3 Hepatitis C Ab Screen 01/09/19 01/09/19 01/09/19 17:45 17:45 17:53 WBC RBC Hgb Hct MCV MCH MCHC RDW Std Deviation RDW Coeff of Dmitry Plt Count MPV Immature Gran % (Auto) Neut % (Auto) Lymph % (Auto) [place] % (Auto) Eos % (Auto) Baso % (Auto) Immature Gran # (Auto) Neut # (Auto) Lymph # (Auto) [place] # (Auto) Eos # (Auto) Baso # (Auto) Sodium Potassium Chloride Carbon Dioxide Anion Gap BUN Creatinine Est Cr Clr Drug Dosing Est GFR ( Amer) Est GFR (Non-Af Amer) BUN/Creatinine Ratio Glucose Calcium Ionized Calcium Phosphorus 2.7 Magnesium Total Bilirubin AST ALT Alkaline Phosphatase Troponin I Total Protein Albumin Globulin Albumin/Globulin Ratio Lipase TSH 2.080 Free T4 1.13 Total T3 0.85 Hepatitis C Ab Screen Neg 01/10/19 01/10/19 01/10/19 06:51 06:51 06:51 WBC 7.70 RBC 5.06 Hgb 14.5 Hct 43.5 MCV 86.0 MCH 28.7 MCHC 33.3 RDW Std Deviation 43.6 RDW Coeff of Dmitry 14.1 Plt Count 228 MPV 11.3 H Immature Gran % (Auto) 0.1 Neut % (Auto) 59.9 Lymph % (Auto) 26.5 [place] % (Auto) 11.9 Eos % (Auto) 1.2 Baso % (Auto) 0.4 Immature Gran # (Auto) 0.01 Neut # (Auto) 4.61 Lymph # (Auto) 2.04 [place] # (Auto) 0.92 H Eos # (Auto) 0.09 Baso # (Auto) 0.03 Sodium 137 Potassium 3.8 Chloride 107 Carbon Dioxide 25 Anion Gap 5.0 BUN 15 Creatinine 0.92 Est Cr Clr Drug Dosing 80.8 Est GFR ( Amer) 82.4 Est GFR (Non-Af Amer) 71.1 BUN/Creatinine Ratio 16.1 Glucose 90 Calcium 9.9 Ionized Calcium 1.21 Phosphorus Magnesium Total Bilirubin AST ALT Alkaline Phosphatase Troponin I Total Protein Albumin Globulin Albumin/Globulin Ratio Lipase TSH Free T4 Total T3 Hepatitis C Ab Screen 01/10/19 06:51 WBC RBC Hgb Hct MCV MCH MCHC RDW Std Deviation RDW Coeff of Dmitry Plt Count MPV Immature Gran % (Auto) Neut % (Auto) Lymph % (Auto) [place] % (Auto) Eos % (Auto) Baso % (Auto) Immature Gran # (Auto) Neut # (Auto) Lymph # (Auto) [place] # (Auto) Eos # (Auto) Baso # (Auto) Sodium Potassium Chloride Carbon Dioxide Anion Gap BUN Creatinine Est Cr Clr Drug Dosing Est GFR ( Amer) Est GFR (Non-Af Amer) BUN/Creatinine Ratio Glucose Calcium Ionized Calcium Phosphorus Magnesium Total Bilirubin AST ALT Alkaline Phosphatase Troponin I < 0.015 Total Protein Albumin Globulin Albumin/Globulin Ratio Lipase TSH Free T4 Total T3 Hepatitis C Ab Screen Medications Administered Home Medications guaifenesin [Mucinex] 600 mg PO Q12H PRN 01/09/19 [History Confirmed 01/09/19] hydrochlorothiazide 12.5 mg PO DAILY PRN 01/09/19 [History Confirmed 01/09/19] iron 18 mg PO DAILY 01/09/19 [History Confirmed 01/09/19] [id number] [Multivitamin 50 Plus] 1 tab PO DAILY 01/09/19 [History Confirmed 01/09/19] Active Medications Acetaminophen (Tylenol) 650 mg PO Q4H PRN PRN Reason: Pain or Fever Stop: 02/08/19 20:50 Guaifenesin (Mucinex) 600 mg PO Q12H PRN PRN Reason: Congestion Stop: 02/08/19 20:50 Hydralazine HCl (Apresoline) 10 mg PO Q4H PRN PRN Reason: hypertension Stop: 02/08/19 20:50 Ioversol (Optiray 320 125ml) 120 ml IV ONCE PRN PRN Reason: Interaction Checking Stop: 01/13/19 20:39 Last Admin: 01/09/19 20:41 Dose: 120 ml Documented by: Lisinopril (Zestril) 20 mg PO QAM ON LICENSE OF [facility] Stop: 02/09/19 15:29 Multivitamins/Minerals (Multivitamin W/ Minerals Tab) 1 tab PO DAILY ON LICENSE OF [facility] Stop: 02/09/19 08:59 Last Admin: 01/10/19 08:01 Dose: 1 tab Documented by: Resident Activity Tracking Resident Involvement: Resident Care Provided Care Provided: Adult Hospital Medicine
[2019-01-10] MEDS: LISINOPRIL 20 MG TAB PO SCH (17:23)
[2019-01-11 06:44] LABS: Basophils # (auto) 0.04 K/uL (0-0.2); Basophils % (auto) 0.5 %; Eosinophils # (auto) 0.18 K/uL (0-0.5); Eosinophils % (auto) 2.2 %; Hematocrit (blood only) 44.8 % (37-47); Hemoglobin 14.5 g/dL (12.0-16.0); Immature Granulocytes # (auto) 0.02 K/uL (0.00-0.02); Immature Granulocytes % (auto) 0.2 %; Lymphocytes % (auto) 24.4 %; Mean Corpuscular Hgb Conc 32.4 g/dL (32-36); Mean Corpuscular Volume 86.7 fL (80-100); Mean Platelet Volume 11.7 fL (7.4-10.4); Monocytes # (auto) 1.03 K/uL (0.11-0.59); Monocytes % (auto) 12.6 %; Neutrophils # (auto) 4.93 K/uL (1.4-6.5); Neutrophils % (auto) 60.1 %; Platelet Count 234 K/uL (130-400); RDW Coefficient of Variation 14.1 % (11.5-14.5); RDW Standard Deviation 44.3 fL (36.4-46.3); Red Blood Count 5.17 M/uL (4.2-5.4)
[2019-01-11 07:15] LABS: BUN Creatinine Ratio 15.1 (10-20); Calcium 9.6 mg/dl (8.5-10.1); Creatinine Clr Calc Pharmacy 52.5 ml/min; Est GFR (African American) 49.2; Est GFR (Non-African American) 42.4; Potassium 3.7 mmol/L (3.5-5.1)
[2019-01-11] MEDS: LISINOPRIL 20 MG TAB PO SCH (08:00)
[2019-01-11 08:32] VITALS: TEMP 98.4; O2SAT 96
[2019-01-11] MEDS ORDERED: CEROVITE ADV FORMULA TAB PO SCH (09:00)
[2019-01-11 11:10] VITALS: BP 163/84; PULSE 52
--- NOTE | 2019-01-11 17:18 | Discharge Summary ---
Date of Service January 11, 2019 Admission HPI Per Admitting Provider Annemarie Fournier is a 53-year-old female with a past medical history of hypertension who presents to the emergency room by referral from her PCP who noted hypertension and bigeminy during an outpatient office visit. Patient reports that she is traveling in [place] last month when she had a "horrible cold" that last several weeks and during which she had shortness of breath and congestion. Her symptoms resolved in early to mid December, but she is continued to have severe exercise limitation and shortness of breath with exertion and walking. She denies any chest pain, chest pressure, jaw pain, shoulder pain but endorses a slight 1/10 back pain which feels like muscle pain in between her shoulder blades 2-3 times per day which lasts for couple seconds to a couple of minutes. She has not had any fevers, chills, or sweats. No rashes, skin changes, or insect bites. Patient reports she has a history of hypertension which was previously controlled with hydrochlorothiazide. This was prescribed about a year and a half ago, and following a hydrochlorothiazide 25 mg daily regimen her blood pressure normalized. Approximately 1 year ago she switched her hydrochlorothiazide for an [id number] herbal fluid pill as a natural alternative to medication. She had not been back to her primary care physician, and did not check her blood pressure so is unaware of what her blood pressure has been in the last several months. She started taking her hydrochlorothiazide again last week due to her shortness of breath and a feeling that she could "hear fluid in her lungs "when she breathes. She endorses 30 pound weight gain in the last year and a half following menopause. She reports she eats a clean diet which is low in salt and fat. She tries to drink half her body weight and water (80 ounces) every day. She reports she pees several times a day, clear. Family history: Maternal grandmother had hypertension. She does not know her mother's history, was adopted by her paternal grandmother. Endorses family history of hyperthyroid requiring ablation. Denies stroke, blood clots, heart attack. Medical history: Reviewed. Hypertension, anemia Medications: Hydrochlorothiazide 12.5 mg, recently restarted. Surgical history: Tonsillectomy Social history: Former body former Lives in [place] with her Tobacco: No current or former use Alcohol: Endorses drinking in college, no recent alcohol use Recreational drug: Denies. Supplements: Denies taking any steroids, creatine powders, or pre-workout powders. Takes vitamin supplements including vitamin D3, calcium, magnesium, vitamin B12, and iron daily. Admission Exam Per Admitting Provider General: A&Ox3. NAD. Cooperative. Thought process linear, goal-directed. Speech fluent with normal prosody. HEENT: Atraumatic, normocephalic. External ear anatomy normal, external nose anatomy normal. Pupils equal and reactive to light and accommodation bilaterall y. Extraocular movements intact without nystagmus. No nasolabial fold flattening or increased tone. Facial sensation and strength intact in all distributions. Mucous membranes moist. Posterior pharynx without erythema/exudate, uvula midline. No anterior or posterior cervical adenopathy, no clavicular adenopathy. Neck supple. Pulm: CTAB A&P. -wheezes, -rales, -rhonchi. Symmetrical chest rise. No increase work of breathing. No respiratory distress. Cardiac: RRR, -mrg. Radial pulses intact and symmetrical. PT pulses intact and symmetrical. Systolic blood pressure in left arm 229/103, right arm 190/90s. Abdominal: Nontender, nondistended, soft. BS present. Extremity: Sensation to soft touch intact in fingertips and hallux bilaterally and symmetrical. Finger flexion/extension, interosseous, wrist flexion/extension, elbow flexion/extension, shoulder flexion/extension/internal rotation/external rotation, hip flexion, knee flexion/extension, ankle plantarflexion/dorsiflexion intact with 5/5 strength bilaterally. Principal Diagnosis Hypertensive Urgency Discharge Exam General: Alert, oriented. 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 Skin: No noted rashes or bruises Psych: Appropriate mood and affect Neuro: No gross deficits HEENT: NC/AT, PERRLA, EOMI, oropharynx moist. Chest: Nontender to palpation. CV: Irregularly irregular rhythm, No murmurs appreciated Resp: Breath sounds clear bilaterally, no increased effort of breathing. No crackles/rhonchi/rales. Abdomen: Soft, nontender, nondistended. No guarding. No organomegaly appreciated. Extremities: No edema in lower extremities bilaterally. Discharge Data Allergies Allergy/AdvReac Type Severity Reaction Status Date / Time Penicillins Allergy Severe Turned blue Verified 01/09/19 18:07 egg AdvReac Intermediate Gastrointestinal Verified 01/09/19 18:07 Upset Consultations 01/09/19 18:45 ED Decision to Admit Stat Ordered Studies 01/09/19 20:16 CT angio chest dissec wo/w con Urgent Hospital Course (1) Hypertensive urgency: Annemarie is a 53-year-old female with a PMHx of hypertension (not currently on medication) and iron deficiency anemia who was admitted for hypertensive urgency. Hypertensive urgency -Hx of HTN. Previously treated with HCTZ 25mg. Pt stopped taking it about a year ago, started herself on homeopathic diuretic. -No BP checks or PCP followups, except day of admission when back pain was concerning. Had seen PCP before that in 2017. BP in ED as high as systolic 240 CTA with no abnormalities and no evidence of dissection as patient was comp laining of pain radiating to her mid back -Received 20mg hydralazine in ED and overnight. Patient placed on Lisinopril 20mg this PM Patient in bigeminy throughout her admission, stress echo performed and no saleem abnormality but technically difficult study due to PVC-bigeminy Discussed case with Cardiology Dr. Palacios and Dr. Moyer they are happy to discharge patient with outpatient PCP follow up as well as cardiology follow up. REcommended starting metoprolol, but at time of discharge patient's pulse rate was only 52. Will defer starting beta corby to primary care team and/or cardiology as heart rate allows Intermittent bigeminy with high PVC load Patient with bigeminy on admitting EKG Troponin negative -stress echo technically difficult as noted above Recommend starting metoprolol as outpatient as pulse rate allows Electrolyte abnormalities -Hypokalemia and hyponatremia noted on admission; currently resolved; likely secondary to pt's use of HCTZ for the last week when symptoms began. -Pt has since been switched to Lisinopril to lessen the risk for development Patient also reports she drinks 80+ ounces of water per day "half my body weight water per day may be dilutional New medications: Lisinopril 20 mg Recommend outpatient follow up with PCP and cardiology Recommend starting metoprolol as allowed by BP Total Time Total Time Spent Total Time Spent (In Minutes): 45 Discharge Plan Discharge Items Patient Disposition: Home - Self-Care Reason For Visit: BIGEMINY,SHORTNESS OF BREATH Discharge Diagnosis: Bigeminy Ruled out for Acute coronary syndrome. Hypertensive Urgency Activity: Resume your previous activity Non-emergency contact: Primary Care Provider Call non-emergency contact if: you have any medication questions Follow-up/Referrals: Margarette Mahmood CRNP [Primary Care Provider] - Diet: Low Sodium (2gm) Addtl Attending Provider Instructions: Follow up with family physician in one week You will be starting one new medication lisinopril. Lisinopril is to lower your blood pressure it is generally well tolerated, but if you notice any lip or tongue swelling or new dry cough let your doctor know. She will also likely get some blood work to check your renal function as an out patient. I recommend getting a Blood pressure arm cuff to help monitor your blood pressures moving forward. Continue exercising and eating well and follow up with your primary care physician next week. I will provide her with a list of recommendations and let her know what we did here in the hospital. it was an absolute pleasure to meet you and I wish you nothing but the best moving forward. Good luck with ! Sincerely, Jesus Johnson MD Pending Studies at Discharge: No Stand-Alone Forms: My [facility], Smoking Cessation Medications and DC Order Prescriptions: New lisinopril 20 mg Tablet 20 mg PO QAM 30 Days Qty: 30 RF: 0 Continued iron 18 mg Tablet 18 mg PO DAILY RF: 0 Multivitamin 50 Plus Tablet 1 tab PO DAILY RF: 0 guaifenesin [Mucinex] 600 mg Tablet Extended Release 12hr 600 mg PO Q12H PRN (Reason: Congestion) RF: 0 Discontinued hydrochlorothiazide 12.5 mg Tablet 12.5 mg PO DAILY PRN (Reason: Fluid Retention) RF: 0 Discharge Orders: Discharge Order (Routine); Ordered 01/11/19 Ordered By: Rachell Soto Admission Data Admit Date/Time: 01/09/19 20:04 Attending Provider: Rachell Soto Admit Provider: Keron Estrada Primary Care Provider: Margarette Mahmood Other Providers: Jarred Marks ; Sunshine Galeano Other Interventions: Discharge Summary Assessment (RN) Last Done: 01/11/19 11:09 DC Date/Time DO NOT enter until pt leaves facility: 01/11/19 11:49 Supervising Physician Co-Signing Physician Notes Resident Physician Supervision Note: I independently interviewed and examined the patient and verified the johnson history and physical, reviewed labs and image studies, discussed the case with the resident Dr. Johnson and agree with the findings and care plan. Time spent in discharge 35 min Resident Activity Tracking Resident Involvement: Resident Care Provided Care Provided: Adult Hospital Medicine
== END 2019-01-11 11:49 | disposition home or self-care (01) ==
LOC: 2W 17:18 → ED 17:18 → SUATTDRO 20:04 → 2W 20:21

== ENCOUNTER 2020-06-05 21:56 | Inpatient (IN) ==
--- OUTSIDE RECORDS SUMMARY | 2020-06-05 21:58 | External Medical Summary | Continuity of Care Document ---
:1965 Author Name Zuhair M.D. Address Unavailable Unavailable , Care Team Providers Name Role Phone Unavailable Unavailable Unavailable [email or web address] Radha CABRERA Unavailable Unavailable Unavailable Unavailable Unavailable Problems Sinus arrhythmia (427.89) (I49.8) Essential hypertension (401.9) (I10) Poor dentition (525.9) (K08.9) Allergies and Adverse Reactions Penicillins (Allergy) Reaction: Anaphyla xis Medications Apple Cider Vinegar CAPS , M.D. Refills: 0 Co Q 10 CAPS , M.D. Refills: 0 Arginine TABS , M.D. Refills: 0 [place]-3 CAPS , M.D. Refills: 0 hydroCHLOROthiazide 25 MG Oral Tablet; TAKE 1 TABLET DAILY. DO Vito Cabrera Start: 27-Oct-2016 Quantity: 30 Refills: 5 Centrum Adults Oral Tablet , M.D. Refills: 0 Vitamin C 500 MG Oral Capsule , M.D. Refills: 0 Procedures History of tonsillectomy with adenoidectomy Status: Completed History of myringotomy with tube placement Status: Completed History of complete colonoscopy Status: Completed History of endoscopy Status: Completed History of dental implant procedure Stat us: Completed Immunizations Immunizations not documented Family History Unknown Family Member Adopted person (V68.89) (Z02.82) Status: Active Comment s: Other Social History - Smoking Status Never smoked tobacco Plan of Treatment Planned Observations Planned Goals not documented Results No Known Results Results not documented
--- OUTSIDE RECORDS SUMMARY | 2020-06-05 21:59 | External Medical Summary | Continuity of Care Document ---
:1965 Author Name Zuhair M.D. Address Unavailable Unavailable , Care Team Providers Name Role Phone Unavailable Unavailable Unavailable Rick [email or web address] Radha CABRERA Unavailable Unavailable Unavailable Unavailable Unavailable Problems Essential hypertension (401.9) (I10) Poor dentition (525.9) (K08.9) Sinus arrhythmia (427.89) (I49.8) Allergies and Adverse Reactions Penicillins (Allergy) Reaction: Anaphyla xis Medications [place]-3 CAPS , M.D. Refills: 0 Arginine TABS , M.D. Refills: 0 Co Q 10 CAPS , M.D. Refills: 0 Apple Cider Vinegar CAPS , M.D. Refills: 0 Centrum Adults Oral Tablet , M.D. Refills: 0 Vitamin C 500 MG Oral Capsule , M.D. Refills: 0 hydroCHLOROthiazide 25 MG Oral Tablet; TAKE 1 TABLET DAILY. DO Vito Cabrera Start: 27-Oct-2016 Quantity: 30 Refills: 5 Procedures History of tonsillectomy with adenoidectomy Status: [...]
[2020-06-05] MEDS ORDERED: hydrALAZINE HCL 20 MG/ML VIAL IV STA (22:29)
--- NOTE | 2020-06-05 22:42 | Emergency Department Note ---
History of Present Illness General Chief complaint: Hypertension Stated complaint: HYPERTENSION Time Seen by Provider: 06/05/20 22:05 History of Present Illness This is a 55-year-old female presenting to the emergency department for evaluation of elevated blood pressure. The patient has a history of breast canc er and is currently on chemotherapy treatments. The patient states that she previously was on 4 different blood pressure medications, losartan, hydrochlorothiazide, amlodipine, and metoprolol. After her last chemotherapy she had some lightheadedness and dizziness with persistent blood pressure of roughly 95/50. A few days ago the patient saw her family doctor and dropped her down just to the losartan. She evidently had an echocardiogram yesterday and her blood pressure was in the 130s over 90s. She states tonight she kept checking her blood pressure and around 5 PM it was 150/90, and then was ultimately 190/90, prompting her to come to the ER for evaluation. The patient is not having any headache, neck pain, chest pain, chest tightness, or shortness of breath. She did take a 5 mg amlodipine before coming to the ER. The patient rates her overall discomfort a 1/10. She does have an upcoming appointment on Sunday, 2 days from now, with her family doctor. Home Medications Medication Instructions Recorded Confirmed Type losartan 100 mg PO DAILY 06/05/20 06/05/20 History metoprolol succinate 50 mg PO QAM #7 tab 06/06/20 Rx Allergies Allergy/AdvReac Type Severity Reaction Status Date / Time Penicillins Allergy Severe Turned blue Verified 06/05/20 22:07 egg AdvReac Intermediate Gastrointestinal Verified 06/05/20 22:07 Upset Past Med/Surg History Medical History (Updated 06/07/20 @ 03:34 by iNck Rodriguez PA-C) Abnormal EKG Breast cancer Hypertension Patient on antineoplastic chemotherapy regimen Surgical History No history of previous surgery Family History Other Diabetes Denies family history of COPD (chronic obstructive pulmonary disease) Social History Smoking Status: Never smoker Hx Alcohol Use: No Hx Substance Use: No Preferred Language: Estonian Communication Ability: Effective [employer]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 Required: No Beliefs That Will Affect Care: None marital status: Single Current Living Situation: Spouse 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 Feels Safe at Home: Yes Assistive Devices: None Review of Systems A total of 10 systems reviewed and were otherwise negative Physical Exam Vital Signs Vital Signs - 24 hr 06/05/20 21:58 Temperature 36.4 C L Temperature Source Temporal Artery Scan Pulse Rate 87 Respiratory Rate 18 Respiratory Depth Normal Blood Pressure 217/105 H Blood Pressure Mean 142 Blood Pressure Position Lying Pulse Oximetry 100 Oxygen Delivery Method Room Air Sepsis Recent Fever Within 48 Hours No Sepsis New/Unexplained Change in Mental Status No Sepsis Action Taken by Nursing No Action Required VITALS: Vitals are noted on the nurse's note and reviewed by myself. Vital signs with notably elevated blood pressure GENERAL: Well-developed, well-nourished, white female, who is in no acute distress and resting comfortably. Patient is cooperative with the examination. HEAD: Normocephalic atraumatic. NECK: Supple without nuchal rigidity. No lymphadenopathy. No thyromegaly. Ce rvical spine is nontender. HEART: Regular rate and rhythm without murmurs gallops or rubs. LUNGS: Clear to auscultation bilaterally without wheezes, rales or rhonchi. No retractions or accessory muscle use. ABDOMEN: Positive normal bowel sounds x 4. Soft, nontender, without masses or organomegaly. No guarding or rebound tenderness. MUSCULOSKELETAL: No muscle atrophy, erythema, or edema noted. Full range of motion in all extremities. Course Administered Medications Discontinued Medications Acetaminophen (Acetaminophen 325 Mg Tab) 650 mg PO Q4H PRN PRN Reason: Pain or Fever Stop: 07/06/20 04:33 Last Admin: 06/06/20 08:53 Dose: 650 mg Documented by: [id number] Enoxaparin Sodium (Enoxaparin Inj 40 Mg/0.4 Ml Syr) 40 mg SQ Q24H [facility] Stop: 07/06/20 08:59 Last Admin: 06/06/20 08:55 Dose: 40 mg Documented by: [id number] Hydralazine HCl (Hydralazine Hcl 20 Mg/Ml Vial) 10 mg IV NOW STA Stop: 06/05/20 22:30 Last Admin: 06/05/20 22:57 Dose: 10 mg Documented by: [id number] Hydralazine HCl (Hydralazine Hcl 20 Mg/Ml Vial) 5 mg IV NOW ONE Stop: 06/06/20 01:22 Last Admin: 06/06/20 01:33 Dose: 5 mg Documented by: [id number] Sodium Chloride (Nss 1000ml) 1,000 mls @ 100 mls/hr IV .Q10H DANUTA Stop: 06/06/20 14:33 Last Infusion: 06/06/20 14:57 Dose: 0 mls/hr Documented by: [id number] Admin: 06/06/20 04:44 Dose: 100 mls/hr Documented by: [id number] Labetalol HCl (Labetalol Hcl Iv 5 Mg/Ml 20ml) 10 mg IV NOW STA Stop: 06/06/20 02:55 Last Admin: 06/06/20 03:07 Dose: 10 mg Documented by: [id number] Cosigned by: [id number] Losartan Potassium (Losartan Potassium 50 Mg Tab) 100 mg PO DAILY DANUTA Stop: 07/06/20 08:59 Last Admin: 06/06/20 08:54 Dose: 100 mg Documented by: [id number] Metoprolol Succinate (Metoprolol Succ 25mg Ext Rel Tab) 25 mg PO NOW STA Stop: 06/06/20 02:56 Last Admin: 06/06/20 03:14 Dose: 25 mg Documented by: [id number] Metoprolol Succinate (Metoprolol Succ 50mg Ext Rel Tab) 50 mg PO QA DANUTA Stop: 07/06/20 08:59 Last Admin: 06/06/20 08:55 Dose: 50 mg Documented by: [id number] Potassium Chloride (Potassium Chloride Crtab 20 Meq Tabcr) 20 meq PO NOW STA Stop: 06/06/20 09:28 Last Admin: 06/06/20 10:39 Dose: 20 meq Documented by: [id number] Medical Decision Making Differential Diagnosis Differential diagnosis includes, but is not limited to: Myocardial infarction, dysrhythmia, pericarditis, pneumothorax, aortic aneurysm/dissection, DVT/PE, anxiety, GERD, PUD, electrolyte imbalance, thyroid disorder, pneumonia, bronchitis, pancreatitis, and others Laboratory Data Result diagrams: 06/06/20 07:17 06/06/20 07:17 Lab Results 06/05/20 06/05/20 06/05/20 Range/Units 22:48 22:48 22:48 WBC 13.40 H (4.8-10.8) K/uL RBC 3.95 L (4.2-5.4) M/uL Hgb 11.2 L (12.0-16.0) g/dL Hct 33.9 L (37-47) % MCV 85.8 (80-100) fL MCH 28.4 (25-34) pg MCHC 33.0 (32-36) g/dL RDW Std Deviation 40.8 (36.4-46.3) fL RDW Coeff of Dmitry 13.4 (11.5-14.5) % Plt Count 191 (130-400) K/uL MPV 10.6 H (7.4-10.4) fL Immature Gran % (Auto) 2.8 % Neut % (Auto) 79.5 % Lymph % (Auto) 9.3 % [place] % (Auto) 7.6 % Eos % (Auto) 0.4 % Baso % (Auto) 0.4 % Neut # (Auto) 10.65 H (1.4-6.5) K/uL Lymph # (Auto) 1.24 (1.2-3.4) K/uL [place] # (Auto) 1.02 H (0.11-0.59) K/uL Eos # (Auto) 0.06 (0-0.5) K/uL Baso # (Auto) 0.05 (0-0.2) K/uL Immature Gran # (Auto) 0.38 H (0.00-0.02) K/uL Toxic Granulation 1+ Polychromasia 1+ Sodium 140 (136-145) mmol/L Potassium 3.7 (3.5-5.1) mmol/L Chloride 108 H (98-107) mmol/L Carbon Dioxide 26 (21-32) mmol/L Anion Gap 5.0 (3-11) BUN 9 (7-18) mg/dl Creatinine 0.78 (0.6-1.2) mg/dl Est Cr Clr Drug Dosing 90.3 ml/min Est GFR ( Amer) 99.2 Est GFR (Non-Af Amer) 85.6 BUN/Creatinine Ratio 11.2 (10-20) Glucose 94 (70-99) mg/dl Calcium 10.0 (8.5-10.1) mg/dl Magnesium 1.9 (1.8-2.4) mg/dl Total Bilirubin 0.3 (0.2-1) mg/dl AST 28 (15-37) U/L ALT 39 (12-78) U/L Alkaline Phosphatase 128 H (45-117) U/L Troponin I 0.016 (0-0.045) ng/ml NT-Pro-B Natriuret Pep 715 (0-900) pg/ml Total Protein 7.9 (6.4-8.2) gm/dl Albumin 3.9 (3.4-5.0) gm/dl Globulin 4.0 (2.5-4.0) gm/dl Albumin/Globulin Ratio 1.0 (0.9-2) TSH 4.720 H (0.300-4.500) uIu/ml Free T4 1.04 (0.8-1.6) ng/dl Urine Color Yellow Urine Appearance Clear (Clear) Urine pH 7.0 (4.5-7.5) Ur Specific [place] 1.004 (1.000-1.030) Urine Protein Negative (Negative) Urine Glucose (UA) Negative (Negative) Urine Ketones Negative (Negative) Urine Blood Negative (Negative) Urine Nitrite Negative (Negative) Urine Bilirubin Negative (Negative) Urine Urobilinogen Negative (Negative) Ur Leukocyte Esterase Negative (Negative) COVID-19 Eval Order SARS-CoV-2 (PCR) (Negative) Influenza Type A (PCR) (Neg) Influenza Type B (PCR) (Neg) RSV (RT-PCR) (Neg) 06/06/20 06/06/20 06/06/20 Range/Units 00:42 01:38 01:38 WBC (4.8-10.8) K/uL RBC (4.2-5.4) M/uL Hgb (12.0-16.0) g/dL Hct (37-47) % MCV (80-100) fL MCH (25-34) pg MCHC (32-36) g/dL RDW Std Deviation (36.4-46.3) fL RDW Coeff of Dmitry (11.5-14.5) % Plt Count (130-400) K/uL MPV (7.4-10.4) fL Immature Gran % (Auto) % Neut % (Auto) % Lymph % (Auto) % [place] % (Auto) % Eos % (Auto) % Baso % (Auto) % Neut # (Auto) (1.4-6.5) K/uL Lymph # (Auto) (1.2-3.4) K/uL [place] # (Auto) (0.11-0.59) K/uL Eos # (Auto) (0-0.5) K/uL Baso # (Auto) (0-0.2) K/uL Immature Gran # (Auto) (0.00-0.02) K/uL Toxic Granulation Polychromasia Sodium (136-145) mmol/L Potassium (3.5-5.1) mmol/L Chloride (98-107) mmol/L Carbon Dioxide (21-32) mmol/L Anion Gap (3-11) BUN (7-18) mg/dl Creatinine (0.6-1.2) mg/dl Est Cr Clr Drug Dosing ml/min Est GFR ( Amer) Est GFR (Non-Af Amer) BUN/Creatinine Ratio (10-20) Glucose (70-99) mg/dl Calcium (8.5-10.1) mg/dl Magnesium (1.8-2.4) mg/dl Total Bilirubin (0.2-1) mg/dl AST (15-37) U/L ALT (12-78) U/L Alkaline Phosphatase (45-117) U/L Troponin I 0.038 (0-0.045) ng/ml NT-Pro-B Natriuret Pep (0-900) pg/ml Total Protein (6.4-8.2) gm/dl Albumin (3.4-5.0) gm/dl Globulin (2.5-4.0) gm/dl Albumin/Globulin Ratio (0.9-2) TSH (0.300-4.500) uIu/ml Free T4 (0.8-1.6) ng/dl Urine Color Urine Appearance (Clear) Urine pH (4.5-7.5) Ur Specific [place] (1.000-1.030) Urine Protein (Negative) Urine Glucose (UA) (Negative) Urine Ketones (Negative) Urine Blood (Negative) Urine Nitrite (Negative) Urine Bilirubin (Negative) Urine Urobilinogen (Negative) Ur Leukocyte Esterase (Negative) COVID-19 Eval Order [facility]FluRsv at [facility] SARS-CoV-2 (PCR) NEGATIVE (Negative) Influenza Type A (PCR) Negative (Neg) Influenza Type B (PCR) Negative (Neg) RSV (RT-PCR) Negative (Neg) ECG Data Attestation: I personally reviewed and interpreted this ECG as follows: Additional Comments: Sinus rhythm with frequent Premature ventricular complexes @[address] elevation Possible Left atrial enlargement Poor R wave progression, consider anterior MD vs. lead placement vs. LVH Abnormal ECG When compared with ECG of 09-JAN-2019 17:34, T wave inversion now evident in Anterior leads MDM Narrative Physical exam and history were performed. Nursing notes, EMR, and Medication List were personally reviewed. Patient appears to have elevated blood pressure readings at home after medication changes. The patient is quite hypertensive on arrival to the [facility]. IV access was established and labs were obtained. She was given IV hydralazine and placed on the research/program director. EKG does not show acute ST elevation, however there is concern for some T wave inversion that was not previously present. An order was placed for continuous cardiac monitoring. The monitor shows a rate of 84 with normal sinus rhythm. The patient's blood work is as above and was reviewed. She has mildly elevated white blood cell count of 13,000. She does not have a significant anemia or gross electrolyte imbalance. Transaminases are not diagnostic. The patient's initial troponin is 0.016, which is higher than her baseline which is undetectable. A repeat 2-hour troponin was performed and is increasing, and is 0.038. The patient did have rapid improvement of her blood pressure after the initial dose of hydralazine, however after roughly 90 minutes she began to feel flushed and her blood pressure went up again. She was given an additional dose of hydralazine. The patient was reevaluated multiple times throughout the course of her stay. Seeing is that she has an upward trending troponin with EKG changes I do not feel sending her home is appropriate. [facility] the patient here in the department. Please see their dictation for further patient course, plan, and disposition. The chart was completed utilizing [employer] Voice Recognition Software. Grammatical errors, random word insertions, pronoun errors, and incomplete sentences are an occasional consequence of this system due to software limitations, ambient noise, and hardware issues. Any formal questions or conc erns about the content, text, or information contained within the body of this dictation should be directly addressed to the provider for clarification. . Impression & Plan Hypertensive urgency, Patient on antineoplastic chemotherapy regimen Discharge Plan Visit Data Chief Complaint: Hypertension Stated Complaint: HYPERTENSION ED Provider: Alanis John ED Midlevel Provider: Nick Rodriguez Discharge Problem: Hypertensive urgency, Patient on antineoplastic chemotherapy regimen Patient Disposition: Admitted As Inpatient Discharge Instructions Interventions: ED Discharge Assessment Last Done: 06/06/20 04:04
[2020-06-05 23:07] LABS: Hematocrit (blood only) 33.9 % (37-47); Hemoglobin 11.2 g/dL (12.0-16.0); Mean Corpuscular Hemoglobin 28.4 pg (25-34); Mean Corpuscular Volume 85.8 fL (80-100); Mean Platelet Volume 10.6 fL (7.4-10.4); Platelet Count 191 K/uL (130-400); RDW Coefficient of Variation 13.4 % (11.5-14.5); RDW Standard Deviation 40.8 fL (36.4-46.3); Red Blood Count 3.95 M/uL (4.2-5.4)
[2020-06-05 23:08] LABS: Appearance Urine Clear (Clear); Bilirubin Urine Negative (Negative); Blood Urine Negative (Negative); Color Urine Yellow; Glucose Urine UA Negative (Negative); Ketones Urine Negative (Negative); Leukocyte Esterase Urine Negative (Negative); Nitrite Urine Negative (Negative); Protein Urine Negative (Negative); Specific Gravity Urine 1.004 (1.000-1.030); Urobilinogen Urine Negative (Negative)
[2020-06-05 23:24] LABS: Albumin Level 3.9 gm/dl (3.4-5.0); BUN Creatinine Ratio 11.2 (10-20); Creatinine Clr Calc Pharmacy 90.3 ml/min; Est GFR (African American) 99.2; Est GFR (Non-African American) 85.6; Magnesium 1.9 mg/dl (1.8-2.4); Potassium 3.7 mmol/L (3.5-5.1)
[2020-06-05 23:34] LABS: Basophils # (auto) 0.05 K/uL (0-0.2); Basophils % (auto) 0.4 %; Bilirubin,Total 0.3 mg/dl (0.2-1); Eosinophils # (auto) 0.06 K/uL (0-0.5); Eosinophils % (auto) 0.4 %; Immature Granulocytes # (auto) 0.38 K/uL (0.00-0.02); Immature Granulocytes % (auto) 2.8 %; Lymphocytes # (auto) 1.24 K/uL (1.2-3.4); Lymphocytes % (auto) 9.3 %; Monocytes # (auto) 1.02 K/uL (0.11-0.59); Monocytes % (auto) 7.6 %; Neutrophils # (auto) 10.65 K/uL (1.4-6.5); Neutrophils % (auto) 79.5 %; Polychromasia 1+; Thyroid Stimulating Hormone 4.72 uIu/ml (0.300-4.500); Total Protein 7.9 gm/dl (6.4-8.2); Toxic Granulation 1+; Troponin I 0.016 ng/ml (0-0.045)
[2020-06-05 23:47] LABS: T4 Free Thyroxine 1.04 ng/dl (0.8-1.6)
[2020-06-06] MEDS ORDERED: hydrALAZINE HCL 20 MG/ML VIAL IV ONE (01:21)
[2020-06-06 02:35] LABS: Influenza A virus by PCR Negative (Neg); Influenza B virus by PCR Negative (Neg); RSV by PCR Negative (Neg); SARS CoV2 RNA(COVID-19) InHosp NEGATIVE (Negative)
[2020-06-06] MEDS ORDERED: LABETALOL HCL IV 5 MG/ML 20ML IV STA (02:54)
[2020-06-06] MEDS ORDERED: METOPROLOL SUCC 25MG EXT REL TAB PO STA (02:55)
[2020-06-06] MEDS ORDERED: ONDANSETRON INJ 2 MG/ML 2 ML VIAL IV PRN (04:34)
[2020-06-06] MEDS ORDERED: LABETALOL HCL IV 5 MG/ML 20ML IV PRN (04:34)
[2020-06-06] MEDS ORDERED: NITROGLYCERIN SL 0.4 MG/TAB TAB SL PRN (04:34)
[2020-06-06] MEDS ORDERED: POLYETHYLENE (MIRALAX) 17 GM PACK PO PRN (04:34)
[2020-06-06] MEDS ORDERED: ACETAMINOPHEN 325 MG TAB PO PRN (04:34)
[2020-06-06] MEDS ORDERED: SODIUM CHLORIDE 0.9% 1000ML 1,000 ML IV SCH (04:34)
--- NOTE | 2020-06-06 07:28 | History and Physical Report ---
DATE OF ADMISSION: 06/06/2020 CHIEF COMPLAINT: Elevated blood pressure. HISTORY OF PRESENT ILLNESS: This is a 55-year-old female with past medical history significant for hypertension, PVCs, history of breast cancer diagnosed in March 2020, currently on chemo. Plan for surgery later. She had second chemo 3 days ago. After her second chemo, her blood pressure dropped very low. She saw her PCP and she is on amlodipine, hydrochlorothiazide, losartan and Toprol-XL. Except for losartan, all other medications were stopped and since then her blood pressure started to slowly climb up. Yesterday, she felt her diastolic was going up and she had echocardiogram as outpatient. During that time, her diastolic was going high. Her EF was found to be 60%, but in the evening her diastolic was going more than 100 and she decided to come to the ER. In the ER, blood pressure was in the 160s to 180 range systolic and more than 110 diastolic. Received hydralazine and we were called for admission. Currently resting comfortably and hemodynamically stable. She is saying she is micturating a lot. Denies any chest pain, no shortness of breath, no cough, no fever, no chills, no headache, no blurred visions, no earache, no runny nose. Appetite is okay. No nausea. Normal bowel movements. Currently resting comfortably and hemodynamically stable. ALLERGIES: PENICILLIN, EGG. PAST MEDICAL HISTORY: As mentioned above. PAST SURGICAL HISTORY: Colonoscopy, EGDs, ultrasound-guided breast biopsy. MEDICATIONS: Currently taking only losartan 100 mg p.o. daily and Compazine 10 mg p.o. q. 6 hours p.r.n. FAMILY HISTORY: Significant for maternal aunt has breast cancer. SOCIAL HISTORY: . No smoking, no alcohol, no drug use. REVIEW OF SYSTEMS: As per HPI. Rest of the review of systems negative. PHYSICAL EXAMINATION: GENERAL: The patient is of moderate build, not in acute distress. VITAL SIGNS: Temperature 36.4, pulse 109, respiratory rate 14, blood pressure 154/106, oxygen 99% on room air. HEENT: Pupils equal, round, and reactive to light. Oral mucosa dry. NECK: No JVD, no neck masses. CARDIOVASCULAR: S1, S2 heard. Regular rate and rhythm, no murmur, no gallop. RESPIRATORY SYSTEM: Normal AP diameter. No accessory muscle use. No wheezing, no crackles. ABDOMEN: Soft, bowel sounds present, nontender. No distention. CENTRAL NERVOUS SYSTEM: Cranial nerves II through XII grossly intact, nonfocal. EXTREMITIES: No edema, no erythema. LABORATORY DATA: WBC 15.4, hemoglobin 11.2, hematocrit 33.9, platelets 191. Sodium 140, potassium 3.7, chloride 108, bicarbonate 26, BUN 9, creatinine 0.7, serum glucose 94, calcium 10, magnesium 1.9, total bilirubin 0.3, AST 28, ALT 39, alkaline phosphatase 128. Troponin I of 0.038. BNP 715. TSH is 4.7, free T4 of 1.04. Urinalysis negative. SARS-CoV-2 PCR negative. Influenza A and B PCR negative. RSV PCR negative. EKG Sinus rhythm with frequent PVC at rate of 91.T wave inversions in anterior leads ASSESSMENT AND PLAN: This is a 55-year-old female who presents with hypertensive urgency. 1. Hypertensive urgency: The patient was on amlodipine, losartan, hydrochlorothiazide, Toprol-XL at home, but her blood pressure dropped few days back after her second chemo and family doctor stopped all other medications except for losartan. Now comes with hypertensive urgency. Troponin trending up though not in abnormal range. Received hydralazine in the ER. Will continue with her home losartan, restart on Toprol-XL. Placed on labetalol p.r.n. and monitor. The patient says she took amlodipine before coming to the hospital. If the blood pressure is not controlled with losartan and Toprol-XL, will restart amlodipine and hydrochlorothiazide. Monitor in the [employer] tele.Follow repeat ekg.Follow troponin.Recent echo on 06/04/20 is unremarkable. 2. History of PVCs, restarted Toprol-XL. We will follow the EKG. 3. History of breast cancer: Currently getting chemo, follows with hematology/oncology. 4. Deep venous thrombosis prophylaxis: Lovenox. DISPOSITION: Closely monitor in the med tele. Expect to discharge home and follow with family doctor. Level 1 full code. MTDD
[2020-06-06 07:35] LABS: Basophils # (auto) 0.03 K/uL (0-0.2); Basophils % (auto) 0.2 %; Eosinophils # (auto) 0.01 K/uL (0-0.5); Eosinophils % (auto) 0.1 %; Hematocrit (blood only) 32.2 % (37-47); Hemoglobin 10.6 g/dL (12.0-16.0); Immature Granulocytes # (auto) 0.27 K/uL (0.00-0.02); Lymphocytes % (auto) 6.8 %; Mean Corpuscular Hemoglobin 28.3 pg (25-34); Mean Corpuscular Hgb Conc 32.9 g/dL (32-36); Mean Corpuscular Volume 85.9 fL (80-100); Mean Platelet Volume 10.6 fL (7.4-10.4); Monocytes # (auto) 1.31 K/uL (0.11-0.59); Monocytes % (auto) 9.9 %; Neutrophils # (auto) 10.66 K/uL (1.4-6.5); Platelet Count 189 K/uL (130-400); RDW Coefficient of Variation 13.7 % (11.5-14.5); RDW Standard Deviation 40.6 fL (36.4-46.3); Red Blood Count 3.75 M/uL (4.2-5.4); White Blood Count 13.18 K/uL (4.8-10.8)
[2020-06-06 08:01] LABS: BUN Creatinine Ratio 9.4 (10-20); Calcium 9.4 mg/dl (8.5-10.1); Creatinine Clr Calc Pharmacy 105.1 ml/min; Est GFR (African American) 115.3; Est GFR (Non-African American) 99.4; Magnesium 1.9 mg/dl (1.8-2.4); Potassium 3.6 mmol/L (3.5-5.1)
[2020-06-06 08:06] LABS: Troponin I 0.018 ng/ml (0-0.045)
[2020-06-06] MEDS ORDERED: METOPROLOL SUCC 50MG EXT REL TAB PO SCH (09:00)
[2020-06-06] MEDS ORDERED: LOSARTAN POTASSIUM 50 MG TAB PO SCH (09:00)
[2020-06-06] MEDS ORDERED: ENOXAPARIN INJ 40 MG/0.4 ML SYR SQ SCH (09:00)
[2020-06-06] MEDS ORDERED: POTASSIUM CHLORIDE CRTAB 20 MEQ TABCR PO STA (09:27)
--- NOTE | 2020-06-06 13:05 | Electrocardiogram Report ---
Test Reason : Blood Pressure : / mmHG Vent. Rate : 091 BPM Atrial Rate : 091 BPM P-R Int : 156 ms QRS Dur : 090 ms QT Int : 400 ms P-R-T Axes : 067 063 059 degrees QTc Int : 492 ms Sinus rhythm with frequent Premature ventricular complexes Possible Left atrial enlargement Poor R wave progression, consider anterior DC vs. lead placement vs. LVH Abnormal ECG When compared with ECG of 09-JAN-2019 17:34, T wave inversion now evident in Anterior leads Confirmed by Dany Boothe ([id number]) on 06/06/2020 1:05:10 PM Referred By: REFERRED SELF Confirmed By:Cheko Boothe
--- NOTE | 2020-06-06 13:12 | Electrocardiogram Report ---
Test Reason : Blood Pressure : / mmHG Vent. Rate : 083 BPM Atrial Rate : 083 BPM P-R Int : 168 ms QRS Dur : 076 ms QT Int : 442 ms P-R-T Axes : 063 040 043 degrees QTc Int : 519 ms Sinus rhythm with frequent Premature ventricular complexes Nonspecific ST and T wave abnormality Prolonged QT Abnormal ECG When compared with ECG of 05-JUN-2020 22:36, (unconfirmed) Borderline criteria for Anterior infarct are no longer Present Confirmed by Dany Boothe ([id number]) on 06/06/2020 1:11:36 PM Referred By: REFERRED SELF Confirmed By:Cheko Boothe
--- NOTE | 2020-06-06 16:52 | Discharge Summary ---
Date of Service June 06, 2020 Admission HPI Per Admitting Provider This is a 55-year-old female with past medical history significant for hypertension, PVCs, history of breast cancer diagnosed in March 2020, currently on chemo. Plan for surgery later. She had second chemo 3 days ago. After her second chemo, her blood pressure dropped very low. She saw her PCP and she is on amlodipine, hydrochlorothiazide, losartan and Toprol-XL. Except for losartan, all other medications were stopped and since then her blood pressure started to slowly climb up. Yesterday, she felt her diastolic was going up and she had echocardiogram as outpatient. During that time, her diastolic was going high. Her EF was found to be 60%, but in the evening her diastolic was going more than 100 and she decided to come to the ER. In the ER, blood pressure was in the 160s to 180 range systolic and more than 110 diastolic. Received hydralazine and we were called for admission. Currently resting comfortably and hemodynamically stable. She is saying she is micturating a lot. Denies any chest pain, no shortness of breath, no cough, no fever, no chills, no headache, no blurred visions, no earache, no runny nose. Appetite is okay. No nausea. Normal bowel movements. Currently resting comfortably and hemodynamically stable. Admission Exam Per Admitting Provider GENERAL: The patient is of moderate build, not in acute distress. VITAL SIGNS: Temperature 36.4, pulse 109, respiratory rate 14, blood pressure 154/106, oxygen 99% on room air. HEENT: Pupils equal, round, and reactive to light. Oral mucosa dry. NECK: No JVD, no neck masses. CARDIOVASCULAR: S1, S2 heard. Regular rate and rhythm, no murmur, no gallop. RESPIRATORY SYSTEM: Normal AP diameter. No accessory muscle use. No wheezing, no crackles. ABDOMEN: Soft, bowel sounds present, nontender. No distention. CENTRAL NERVOUS SYSTEM: Cranial nerves II through XII grossly intact, nonfocal. EXTREMITIES: No edema, no erythema. Principal Diagnosis Hypertensive urgency Discharge Exam GENERAL: The patient is of moderate build, not in acute distress. HEENT: NC/AT, Pupils equal, round, and reactive to light. Oral mucosa dry. NECK: No JVD, no neck masses. CARDIOVASCULAR: S1, S2 heard. Regular rate and rhythm, no murmur, no gallop. RESPIRATORY SYSTEM: Normal AP diameter. No accessory muscle use. No wheezing, no crackles. ABDOMEN: Soft, bowel sounds present, nontender. No distention. NEURO: Alert and oriented and answering questions appropriately. Speech fluent, no facial symmetry, moves extremities spontaneously EXTREMITIES: No edema, no erythema. Discharge Data Allergies Allergy/AdvReac Type Severity Reaction Status Date / Time Penicillins Allergy Severe Turned blue Verified 06/05/20 22:07 egg AdvReac Intermediate Gastrointestinal Verified 06/05/20 22:07 Upset Consultations 06/06/20 01:35 ED Decision to Admit Stat Hospital Course (1) Hypertensive urgency: (2) Palpitations: (3) Bigeminy: (4) Patient on antineoplastic chemotherapy regimen: (5) Breast cancer: This is a 55-year-old female who presents with hypertensive urgency. 1. Hypertensive urgency: The patient was on amlodipine, losartan, hydrochlorothiazide, Toprol-XL at home, but her blood pressure dropped few days back after her second chemo and family doctor stopped all other medications except for losartan. Now comes with hypertensive urgency. Troponin trending up though not in abnormal range. Received hydralazine in the ER. Will continue with her home losartan, restart on Toprol-XL. Placed on labetalol p.r.n. and monitor. The patient says she took amlodipine before coming to the hospital. If the blood pressure is not controlled with losartan and Toprol-XL, will restart amlodipine and hydrochlorothiazide. Monitor in the med tele.Follow repeat ekg.Follow troponin.Recent echo on 06/04/20 is unremarkable. Patient's blood pressure has been controlled throughout the day, current blood pressure 148/94. Recommend to continue losartan and metoprolol succinate. Patient has history of frequent PVCs, bigeminy, also this is seen on her telemetry. Patient reports previously had palpitations on admission, now denies having any chest pain or palpitations. Seems that patient would benefit from beta-corby. Blood pressure control may be difficult with ongoing chemotherapy and her reaction to chemotherapy/low blood pressure. For now recommend to continue losartan and metoprolol, and to monitor blood pr essure at home. If her blood pressure would be increasing, she can take small dose of amlodipine again at home. Patient has a follow-up scheduled with family doctor on Sunday, tomorrow. She says that she is supposed to get blood work done and chemotherapy on Sunday. We will have her follow-up with her healthcare providers. 2. History of PVCs, restarted Toprol-XL. As above. 3. History of breast cancer: Currently getting chemo, follows with hematology/oncology. DVT prophylaxis: Lovenox. Dispo: home w/ family. Follow up w/ PCP and oncology. Total Time Total Time Spent Total Time Spent (In Minutes): 35 Total Time Includes: Examination of the Patient, Discharge Planning and Medication Reconciliation Discharge Plan Discharge Items Patient Disposition: Home - Self-Care Reason For Visit: HYPERTENSION Discharge Diagnosis: Hypertensive urgency Activity: Per Instructions section Non-emergency contact: Primary Care Provider and Specialist Call non-emergency contact if: you have any medication questions and your symptoms worsen Follow-up/Referrals: Gema Avila MD [Primary Care Provider] - Diet: Heart Healthy Addtl Attending Provider Instructions: Take losartan and metoprolol succinate daily. Monitor your blood pressure at home, and keep a record of these numbers. If you develop elevated blood pressure at home in the evening, take 2.5 mg of amlodipine. Discuss all the medication changes with your healthcare providers. The appointment with your primary care doctor is scheduled for you for tomorrow, Sunday, June 07. Pending Studies at Discharge: No Stand-Alone Forms: My [facility] [place], Smoking Cessation Medications and DC Order Prescriptions: New metoprolol succinate 50 mg Tablet Extended Release 24 Hr 50 mg PO QAM Qty: 7 RF: 0 Continued losartan 100 mg tablet 100 mg PO DAILY RF: 0 Discharge Orders: Discharge Order (Routine); Ordered 06/06/20 Ordered By: Guerrero Zuniga Admission Data Admit Date/Time: 06/06/20 02:54 Attending Provider: Guerrero Zuniga Admit Provider: Graeme Wyatt Primary Care Provider: Gema Avila Other Providers: Graeme Wyatt
== END 2020-06-06 17:36 | disposition home or self-care (01) | DRG 305 ==
LOC: ED 21:56 → 2W 06-06 02:54

== ENCOUNTER 2020-07-19 15:36 | Inpatient (IN) ==
[2020-07-19] MEDS ORDERED: SODIUM CHLORIDE 0.9% 1000ML 1,000 ML IV ONE ×2 (16:05→19:51)
[2020-07-19 16:34] LABS: Basophils # (auto) 0.02 K/uL (0-0.2); Basophils % (auto) 0.7 %; Eosinophils # (auto) 0.02 K/uL (0-0.5); Eosinophils % (auto) 0.7 %; Hematocrit (blood only) 24.3 % (37-47); Immature Granulocytes # (auto) 0.01 K/uL (0.00-0.02); Immature Granulocytes % (auto) 0.3 %; Lymphocytes # (auto) 0.41 K/uL (1.2-3.4); Lymphocytes % (auto) 13.4 %; Mean Corpuscular Hemoglobin 29.3 pg (25-34); Mean Corpuscular Hgb Conc 32.9 g/dL (32-36); Mean Platelet Volume 9.9 fL (7.4-10.4); Monocytes # (auto) 0.23 K/uL (0.11-0.59); Monocytes % (auto) 7.5 %; Neutrophils # (auto) 2.38 K/uL (1.4-6.5); Neutrophils % (auto) 77.4 %; Platelet Count 368 K/uL (130-400); RDW Coefficient of Variation 15.8 % (11.5-14.5); RDW Standard Deviation 49.4 fL (36.4-46.3); Red Blood Count 2.73 M/uL (4.2-5.4); White Blood Count 3.07 K/uL (4.8-10.8)
--- NOTE | 2020-07-19 16:40 | XRay Report ---
XR chest 1V portable CLINICAL HISTORY: Atypical chest pain COMPARISON STUDY: 07/12/2020 FINDINGS: The cardiac and mediastinal contours remain stable. There is a left-sided A-Port catheter. There is no failure. There is no focal pulmonary consolidation. There are no pleural effusions. There is stable left basilar atelectasis/scarring.[ IMPRESSION: No active disease in the chest. ACT 112: Negative or not required by law. Electronically signed by: Deondre Cruz M.D. 07/19/2020 4:38 PM
[2020-07-19 16:52] LABS: Alanine Aminotransferase 50 U/L (12-78); Albumin Level 3.7 gm/dl (3.4-5.0); Aspartate Aminotransferase 22 U/L (15-37); BUN Creatinine Ratio 12.2 (10-20); Bilirubin Direct 0.1 mg/dl (0-0.2); Blood Urea Nitrogen 8 mg/dl (7-18); Calcium 9.5 mg/dl (8.5-10.1); Carbon Dioxide 26 mmol/L (21-32); Chloride 108 mmol/L (98-107); Est GFR (African American) 117.7 ml/min; Est GFR (Non-African American) 101.5 ml/min; Glucose 94 mg/dl (70-99); Lipase 162 U/L (73-393); Magnesium 1.9 mg/dl (1.8-2.4); Potassium 4.4 mmol/L (3.5-5.1); Sodium 138 mmol/L (136-145)
[2020-07-19 16:55] LABS: Alkaline Phosphatase 69 U/L (45-117); Bilirubin,Total 0.5 mg/dl (0.2-1); Globulin 3.6 gm/dl (2.5-4.0); Phosphorus 2.5 mg/dl (2.5-4.9); Total Protein 7.3 gm/dl (6.4-8.2); Troponin I < 0.015 ng/ml (0-0.045)
[2020-07-19] MEDS ORDERED: MAGNESIUM SULFATE / D5W 1 GM/100 ML BAG IV STA (17:22)
[2020-07-19 17:55] LABS: Appearance Urine Clear (Clear); Bacteria Urine Automated Negative (Negative); Bilirubin Urine Negative (Negative); Blood Urine Negative (Negative); Cast Urine Automated 0 /lpf (0-5); Color Urine Yellow; Glucose Urine UA Negative (Negative); Ketones Urine Negative (Negative); Leukocyte Esterase Urine Trace (Negative); Nitrite Urine Negative (Negative); Protein Urine Negative (Negative); RBC Urine Automated 0-4 /hpf (0-4); Specific Gravity Urine 1.011 (1.000-1.030); Urobilinogen Urine Negative (Negative)
[2020-07-19] MEDS ORDERED: PROCHLORPERAZINE 1 ML IV ONE (19:51)
[2020-07-19] MEDS ORDERED: diphenhydrAMINE 50 MG/ML VIAL IV STA (19:51)
[2020-07-19] MEDS ORDERED: ACETAMINOPHEN 1,000 MG/100 ML VIAL IV STA (19:51)
--- NOTE | 2020-07-19 20:12 | Emergency Department Note ---
Impression & Plan Palpitations, Dehydration, Low magnesium level, Generalized weakness, Chemotherapy-induced fatigue, Anemia ED Provider Note NAME: CHU UMANA AGE: 55 SEX: F ARRIVES VIA: Walk-In INFORMANT: Patient, ED PROVIDER(S): Lowell Morales MD CHIEF COMPLAINT: weakness PLAN: Disposition: Admit MEDICAL DECISION MAKING: The patient is a pleasant 55-year-old woman with a past medical history of hypertension, PVCs, history of breast cancer diagnosed in March 2020, undergoing chemotherapy with anticipated plans for surgery in the future, anxiety who presents to the emergency department with symptoms of fatigue, lightheadedness, "shakiness which has evolved since her last chemo treatment on Sunday and she reports is similar to symptoms she had on ED visit last week where she reports that she had low potassium and magnesium and felt improved following repletion. She feels that her electrolytes are likely low again and is also worried about her blood pressure which has been elevated. Of note, the patient has had recent changes to blood pressure medications due to fluctuating blood pressures and has fixated on this in relation to her symptoms. She does report mild intermittent nausea but feels that she is eating and drinking normally. She denies any fevers, cough, congestion, chest pain, shortness of breath, vomiting, diarrhea. Of note, on her previous ED visit on 07/[address] of her chest performed which was negative for PE pneumonias or pleural effusion. Cystic lesions in the left breast were noted. On arrival patient is anxious appearing but no acute distress, afebrile stable vital signs. She appears clinically dry. She has no focal neurologic deficits. EKG without overt acute ischemia. Chest x-ray negative for acute cardiopulmonary process. WBC 3K, H/H 10/12.3 slightly decreased from prior in the setting of her chemotherapy, and platelets within normal limits. Chemistry without metabolic acidosis. Magnesium 1.9 low end of normal however she was provided with a gram of magnesium given her history of deficiency. Electrolytes otherwise unremarkable. LFTs within normal limits. Troponin negative/undetectable. UA without convincing evidence of infection. On reevaluation patient reported initially feeling better but then reports beginning to feel worse again following ambulating to the bathroom to urinate. At this time she is perseverating on her blood pressure which was slightly more elevated 180/100 however she reported similar symptoms when her blood pressure was lower. Given the patient does appear clinically dry we did agree to proceed with additional hydration and treatment of mild nausea and headache. Upon reevaluation the patient reported some improvement in her headache/body aches, dizziness and weakness however was now complaining of burning in her chest. Repeat EKG unchanged. Blood pressure was somewhat improved 160/90s at this time. Given the persistence of her constellation of symptoms which may be attributable to her chemotherapy (may also have a component of anxiety), reasonable to admit the patient for further management. [facility] the patient for admission. Triage Nursing notes reviewed and agree them. Additional history obtained from [facility] records Prior medical records reviewed Vital Signs: reviewed and remarkable for hypertension. Differential diagnosis: Infection, dehydration, metabolic abnormality, hypo/hyperglycemia, electrolyte disturbance, anemia, hypoxia, cardiac sources, intracerebral event, toxicologic, neurologic, as well as other pathologies. ER treatment provided: See below. Diagnostics interpreted by me: ECG: Normal sinus rhythm, 92 bpm, no ectopy, no overt ST elevation or depression, QTC 445, QRS 88. Cardiac Monitoring: An order for continuous cardiac monitoring was placed and demonstrated Normal sinus rhythm, 92 bpm, no ectopy. Laboratory studies: See below Imaging studies: See below Consultation(s): Case was [facility] who will evaluate the patient for admission. HPI: The patient is a pleasant 55-year-old woman with a past medical history of hypertension, PVCs, history of breast cancer diagnosed in March 2020, under going chemotherapy with anticipated plans for surgery in the future, anxiety who presents to the emergency department with symptoms of fatigue, lightheadedness, "shakiness which has evolved since her last chemo treatment on Sunday and she reports is similar to symptoms she had on ED visit last week where she reports that she had low potassium and magnesium and felt improved following repletion. She feels that her electrolytes are likely low again and is also worried about her blood pressure which has been elevated. Of note, the patient has had recent changes to blood pressure medications due to fluctuating blood pressures and has fixated on this in relation to her symptoms. She does report mild intermittent nausea but feels that she is eating and drinking normally. She denies any fevers, cough, congestion, chest pain, shortness of breath, vomiting, diarrhea. Of note, on her previous ED visit on 07/[address] of her chest performed which was negative for PE pneumonias or pleural effusion. Cystic lesions in the left breast were noted. ROS: See above HPI for pertinent positives & negatives. A total of 10 systems reviewed and were otherwise negative. PAST MEDICAL HISTORY:See Below PAST SURGICAL HISTORY:See Below FAMILY HISTORY:See Below SOCIAL HISTORY:See Below HOME MEDICATIONS:See Below ALLERGIES:See Below VITALS:See Below PHYSICAL EXAMINATION: GENERAL: Awake, alert, fatigued/anxious-appearing, in no distress HENT: Normocephalic, atraumatic. Oropharynx with dry mucous membranes and otherwise unremarkable. EYES: Normal conjunctiva. Sclera non-icteric. EOMI. No nystamgus. PEARRL. NECK: Supple. No nuchal rigidity. FROM. No JVD. RESPIRATORY: Clear to auscultation. CARDIAC: Tachycardic rate, normal rhythm. Extremities warm and well perfused. Pulses equal. ABDOMEN: Soft, non-distended. No tenderness to palpation. No rebound or guarding. No masses. RECTAL: Deferred. MUSCULOSKELETAL: Chest examination reveals no tenderness. The back is symmetrical on inspection without obvious abnormality. There is no CVA tenderness to palpation. No joint edema. LOWER EXTREMITIES: Calves are equal size bilaterally and non-tender. No edema. No discoloration. NEURO: Normal sensorium. No sensory or motor deficits noted. DTRs wnl. No c lonus. SKIN: No rash or jaundice noted. Lowell Morales MD Past Med/Surg History Medical History Abnormal EKG Breast cancer Hypertension Patient on antineoplastic chemotherapy regimen Surgical History No history of previous surgery Family History Other Diabetes Denies family history of COPD (chronic obstructive pulmonary disease) Social History Smoking Status: Never smoker Second Hand Exposure: No; Do You Dip or Chew Tobacco: No; Hx Alcohol Use: No Hx Substance Use: No Preferred Language: Burmese Communication Ability: Effective Supervisor Plate Pasting Required: No Beliefs That Will Affect Care: None marital status: Single Current Living Situation: Spouse current occupational status: employed current occupation: [employer] Other Information That Helps Us Care for You: No Feels Safe at Home: Yes Safety Concerns: Feels Safe At This Time Assistive Devices: None Allergies Allergies Allergy/AdvReac Type Severity Reaction Status Date / Time Penicillins Allergy Severe Turned blue Verified 07/19/20 16:44 egg AdvReac Intermediate Gastrointestinal Verified 07/19/20 16:44 Upset Home Meds Home Medications Medication Instructions Recorded Confirmed losartan 100 mg PO QPM 06/05/20 07/19/20 amlodipine 7.5 mg PO DAILY 06/08/20 07/19/20 buspirone [BuSpar] 5 mg PO BID 06/08/20 07/19/20 dexamethasone 8 mg PO DIRECTED PRN 06/08/20 07/19/20 olanzapine 5 mg PO DIRECTED PRN 06/08/20 07/19/20 prochlorperazine maleate 10 mg PO Q6 PRN 06/08/20 07/19/20 ferrous sulfate [iron] 325 mg PO DAILY 07/19/20 07/19/20 magnesium oxide 400 mg PO BID 07/19/20 07/19/20 Previous Rx's Medication Instructions Recorded metoprolol succinate 50 mg PO QAM #7 tab 06/06/20 hydroxyzine pamoate [Vistaril] 50 mg PO Q8H PRN #21 cap 07/12/20 Results & Data (ED) Vital Signs Vital Signs - 24 hr 07/19/20 15:37 07/19/20 16:24 07/19/20 17:41 Temperature 36.8 C Temperature Source Temporal Artery Scan Pulse Rate 103 H Pulse Rate [Right Finger] 93 H Pulse Rate from SpO2 Sensor Respiratory Rate 20 18 Respiratory Effort / Characteristics Non-Labored Spontaneous Non-Labored Spontaneous Respiratory Depth Normal Normal Respiratory Pattern Regular Blood Pressure 164/111 H Blood Pressure [Right Arm] 175/99 H Blood Pressure Mean 128 Blood Pressure Mean [Right Arm] 124 Blood Pressure Position [Right Arm] Lying Pulse Oximetry 99 95 100 Oxygen Delivery Method Room Air Room Air Room Air Sepsis Recent Fever Within 48 Hours No Sepsis New/Unexplained Change in Mental Status No Sepsis Action Taken by Nursing No Action Required 07/19/20 18:00 07/19/20 19:00 07/19/20 19:30 Temperature Temperature Source Pulse Rate 94 H 98 H Pulse Rate [Right Finger] 92 H Pulse Rate from SpO2 Sensor 94 H 99 H Respiratory Rate 18 16 16 Respiratory Effort / Characteristics Non-Labored Spontaneous Respiratory Depth Normal Respiratory Pattern Blood Pressure 153/109 H 180/121 H Blood Pressure [Right Arm] 157/100 H Blood Pressure Mean 123 140 Blood Pressure Mean [Right Arm] 119 Blood Pressure Position [Right Arm] Lying Pulse Oximetry 99 100 98 Oxygen Delivery Method Room Air Room Air Room Air Sepsis Recent Fever Within 48 Hours Sepsis New/Unexplained Change in Mental Status Sepsis Action Taken by Nursing 07/19/20 20:01 07/19/20 20:30 07/19/20 21:00 Temperature Temperature Source Pulse Rate 93 H 101 H 96 H Pulse Rate [Right Finger] Pulse Rate from SpO2 Sensor 93 H 101 H 97 H Respiratory Rate 15 14 17 Respiratory Effort / Characteristics Respiratory Depth Respiratory Pattern Blood Pressure 170/108 H 167/103 H 166/97 H Blood Pressure [Right Arm] Blood Pressure Mean 128 124 120 Blood Pressure Mean [Right Arm] Blood Pressure Position [Right Arm] Pulse Oximetry 99 98 98 Oxygen Delivery Method Room Air Room Air Room Air Sepsis Recent Fever Within 48 Hours Sepsis New/Unexplained Change in Mental Status Sepsis Action Taken by Nursing 07/19/20 21:30 07/19/20 22:00 07/19/20 22:30 Temperature Temperature Source Pulse Rate 97 H 94 H 96 H Pulse Rate [Right Finger] Pulse Rate from SpO2 Sensor 97 H 93 H 96 H Respiratory Rate 15 16 17 Respiratory Effort / Characteristics Respiratory Depth Respiratory Pattern Blood Pressure 158/97 H 156/95 H 156/94 H Blood Pressure [Right Arm] Blood Pressure Mean 117 115 114 Blood Pressure Mean [Right Arm] Blood Pressure Position [Right Arm] Pulse Oximetry 97 97 96 Oxygen Delivery Method Room Air Room Air Room Air Sepsis Recent Fever Within 48 Hours Sepsis New/Unexplained Change in Mental Status Sepsis Action Taken by Nursing 07/19/20 23:00 Temperature Temperature Source Pulse Rate 89 Pulse Rate [Right Finger] Pulse Rate from SpO2 Sensor 89 Respiratory Rate 16 Respiratory Effort / Characteristics Respiratory Depth Respiratory Pattern Blood Pressure 154/95 H Blood Pressure [Right Arm] Blood Pressure Mean 114 Blood Pressure Mean [Right Arm] Blood Pressure Position [Right Arm] Pulse Oximetry 97 Oxygen Delivery Method Room Air Sepsis Recent Fever Within 48 Hours Sepsis New/Unexplained Change in Mental Status Sepsis Action Taken by Nursing Laboratory Data Attestation: I reviewed the patient's lab results. Result diagrams: 07/19/20 16:21 07/19/20 16:21 Lab Results 07/19/20 07/19/20 07/19/20 Range/Units 16:21 16:21 17:36 WBC 3.07 L (4.8-10.8) K/uL RBC 2.73 L (4.2-5.4) M/uL Hgb 8.0 L (12.0-16.0) g/dL Hct 24.3 L (37-47) % MCV 89.0 (80-100) fL MCH 29.3 (25-34) pg MCHC 32.9 (32-36) g/dL RDW Std Deviation 49.4 H (36.4-46.3) fL RDW Coeff of Dmitry 15.8 H (11.5-14.5) % Plt Count 368 (130-400) K/uL MPV 9.9 (7.4-10.4) fL Immature Gran % (Auto) 0.3 % Neut % (Auto) 77.4 % Lymph % (Auto) 13.4 % Sutton % (Auto) 7.5 % Eos % (Auto) 0.7 % Baso % (Auto) 0.7 % Neut # (Auto) 2.38 (1.4-6.5) K/uL Lymph # (Auto) 0.41 L (1.2-3.4) K/uL Sutton # (Auto) 0.23 (0.11-0.59) K/uL Eos # (Auto) 0.02 (0-0.5) K/uL Baso # (Auto) 0.02 (0-0.2) K/uL Immature Gran # (Auto) 0.01 (0.00-0.02) K/uL Sodium 138 (136-145) mmol/L Potassium 4.4 (3.5-5.1) mmol/L Chloride 108 H (98-107) mmol/L Carbon Dioxide 26 (21-32) mmol/L Anion Gap 4.0 (3-11) BUN 8 (7-18) mg/dl Creatinine 0.62 (0.6-1.2) mg/dl Est Cr Clr Drug Dosing 109.0 ml/min Est GFR ( Amer) 117.7 ml/min Est GFR (Non-Af Amer) 101.5 ml/min BUN/Creatinine Ratio 12.2 (10-20) Glucose 94 (70-99) mg/dl Calcium 9.5 (8.5-10.1) mg/dl Phosphorus 2.5 (2.5-4.9) mg/dl Magnesium 1.9 (1.8-2.4) mg/dl Total Bilirubin 0.5 (0.2-1) mg/dl Direct Bilirubin 0.1 (0-0.2) mg/dl AST 22 (15-37) U/L ALT 50 (12-78) U/L Alkaline Phosphatase 69 (45-117) U/L Troponin I < 0.015 (0-0.045) ng/ml Total Protein 7.3 (6.4-8.2) gm/dl Albumin 3.7 (3.4-5.0) gm/dl Globulin 3.6 (2.5-4.0) gm/dl Albumin/Globulin Ratio 1.0 (0.9-2) Lipase 162 (73-393) U/L Urine Color Yellow Urine Appearance Clear (Clear) Urine pH 8.0 H (4.5-7.5) Ur Specific [place] 1.011 (1.000-1.030) Urine Protein Negative (Negative) Urine Glucose (UA) Negative (Negative) Urine Ketones Negative (Negative) Urine Blood Negative (Negative) Urine Nitrite Negative (Negative) Urine Bilirubin Negative (Negative) Urine Urobilinogen Negative (Negative) Ur Leukocyte Esterase Trace H (Negative) Urine WBC (Auto) 1-5 (0-5) /hpf Urine RBC (Auto) 0-4 (0-4) /hpf U Hyaline Cast (Auto) 0 (0-5) /lpf U Epithel Cells (Auto) 10-20 H (0-5) /lpf Urine Bacteria (Auto) Negative (Negative) COVID-19 Eval Order SARS-CoV-2 (PCR) (Negative) 07/19/20 07/19/20 Range/Units 22:07 22:07 WBC (4.8-10.8) K/uL RBC (4.2-5.4) M/uL Hgb (12.0-16.0) g/dL Hct (37-47) % MCV (80-100) fL MCH (25-34) pg MCHC (32-36) g/dL RDW Std Deviation (36.4-46.3) fL RDW Coeff of Dmitry (11.5-14.5) % Plt Count (130-400) K/uL MPV (7.4-10.4) fL Immature Gran % (Auto) % Neut % (Auto) % Lymph % (Auto) % Sutton % (Auto) % Eos % (Auto) % Baso % (Auto) % Neut # (Auto) (1.4-6.5) K/uL Lymph # (Auto) (1.2-3.4) K/uL Sutton # (Auto) (0.11-0.59) K/uL Eos # (Auto) (0-0.5) K/uL Baso # (Auto) (0-0.2) K/uL Immature Gran # (Auto) (0.00-0.02) K/uL Sodium (136-145) mmol/L Potassium (3.5-5.1) mmol/L Chloride (98-107) mmol/L Carbon Dioxide (21-32) mmol/L Anion Gap (3-11) BUN (7-18) mg/dl Creatinine (0.6-1.2) mg/dl Est Cr Clr Drug Dosing ml/min Est GFR ( Amer) ml/min Est GFR (Non-Af Amer) ml/min BUN/Creatinine Ratio (10-20) Glucose (70-99) mg/dl Calcium (8.5-10.1) mg/dl Phosphorus (2.5-4.9) mg/dl Magnesium (1.8-2.4) mg/dl Total Bilirubin (0.2-1) mg/dl Direct Bilirubin (0-0.2) mg/dl AST (15-37) U/L ALT (12-78) U/L Alkaline Phosphatase (45-117) U/L Troponin I (0-0.045) ng/ml Total Protein (6.4-8.2) gm/dl Albumin (3.4-5.0) gm/dl Globulin (2.5-4.0) gm/dl Albumin/Globulin Ratio (0.9-2) Lipase (73-393) U/L Urine Color Urine Appearance (Clear) Urine pH (4.5-7.5) Ur Specific [place] (1.000-1.030) Urine Protein (Negative) Urine Glucose (UA) (Negative) Urine Ketones (Negative) Urine Blood (Negative) Urine Nitrite (Negative) Urine Bilirubin (Negative) Urine Urobilinogen (Negative) Ur Leukocyte Esterase (Negative) Urine WBC (Auto) (0-5) /hpf Urine RBC (Auto) (0-4) /hpf U Hyaline Cast (Auto) (0-5) /lpf U Epithel Cells (Auto) (0-5) /lpf Urine Bacteria (Auto) (Negative) COVID-19 Eval Order Covid19 at [facility] SARS-CoV-2 (PCR) NEGATIVE (Negative) Administered Medications Metoprolol Succinate (Metoprolol Succ 25mg Ext Rel Tab) 25 mg PO QPM DANUTA Stop: 08/18/20 23:04 Last Admin: 07/19/20 23:36 Dose: 25 mg Documented by: [id number] Discontinued Medications Al Hydrox/Mg Hydrox/Simethicone (Gi Cocktail Ed Use) 1 dose PO ONE ONE Stop: 07/19/20 21:41 Last Admin: 07/19/20 22:17 Dose: 1 dose Documented by: [id number] Diphenhydramine HCl (Diphenhydramine 50 Mg/Ml Vial) 12.5 mg IV NOW STA Stop: 07/19/20 19:52 Last Admin: 07/19/20 20:02 Dose: 12.5 mg Documented by: [id number] Sodium Chloride (Nss 1000ml) 1,000 mls @ 999 mls/hr IV .Q1H1M ONE Stop: 07/19/20 17:05 Last Infusion: 07/19/20 17:33 Dose: 0 mls/hr Documented by: [id number] Admin: 07/19/20 16:25 Dose: 999 mls/hr Documented by: [id number] Magnesium Sulfate/Dextrose (Magnesium Sulfate / D5w) 1 gm in 100 mls @ 100 mls/hr IV NOW STA Stop: 07/19/20 18:21 Last Infusion: 07/19/20 18:42 Dose: 0 mls/hr Documented by: [id number] Admin: 07/19/20 17:37 Dose: 100 mls/hr Documented by: [id number] Sodium Chloride (Nss 1000ml) 1,000 mls @ 999 mls/hr IV .Q1H1M ONE Stop: 07/19/20 20:51 Last Infusion: 07/19/20 21:33 Dose: 0 mls/hr Documented by: [id number] Admin: 07/19/20 20:10 Dose: 999 mls/hr Documented by: [id number] Acetaminophen (Ofirmev) 1,000 mg in 100 mls @ 400 mls/hr IV NOW STA Stop: 07/19/20 20:05 Last Infusion: 07/19/20 20:27 Dose: 0 mls/hr Documented by: [id number] Admin: 07/19/20 20:09 Dose: 400 mls/hr Documented by: [id number] Prochlorperazine (Compazine) 1 mls @ 1 mls/min IV ONE ONE Stop: 07/19/20 19:52 Last Admin: 07/19/20 20:04 Dose: 1 mls/min Documented by: [id number] Famotidine (Pepcid 20mg Iv Push) 20 mg in 5 mls @ 2.5 mls/min IV NOW STA Stop: 07/19/20 21:41 Last Admin: 07/19/20 22:17 Dose: 2.5 mls/min Documented by: [id number] Imaging Data Radiologist's Impression: Chest X-Ray 07/19/20 16:05 XR chest 1V portable CLINICAL HISTORY: Atypical chest pain COMPARISON STUDY: 07/12/2020 FINDINGS: The cardiac and mediastinal contours remain stable. There is a left- sided A-Port catheter. There is no failure. There is no focal pulmonary consolidation. There are no pleural effusions. There is stable left basilar atelectasis/scarring.[ IMPRESSION: No active disease in the chest. ACT 112: Negative or not required by law. Electronically signed by: Deondre Cruz M.D. 07/19/2020 4:38 PM Discharge Plan Visit Data Chief Complaint: Dehydration Stated Complaint: Dehydration ED Provider: Lowell Morales Discharge Problem: Palpitations, Dehydration, Low magnesium level, Generalized weakness, Chemotherapy-induced fatigue, Anemia Patient Disposition: Admitted As Inpatient Discharge Instructions Interventions: ED Discharge Assessment Last Done: 07/19/20 23:57
[2020-07-19] MEDS ORDERED: FAMOTIDINE 20MG IV PUSH 20 MG/5 ML SYR IV STA (21:40)
[2020-07-19] MEDS ORDERED: GI COCKTAIL ED USE PO ONE (21:40)
[2020-07-19] MEDS ORDERED: METOPROLOL SUCC 25MG EXT REL TAB PO SCH (23:05)
[2020-07-20] MEDS ORDERED: hydrOXYzine HCl 25 MG TAB PO PRN (00:13)
[2020-07-20] MEDS ORDERED: ONDANSETRON INJ 2 MG/ML 2 ML VIAL IV PRN (00:13)
[2020-07-20] MEDS ORDERED: ACETAMINOPHEN 325 MG TAB PO PRN (00:13)
[2020-07-20] MEDS ORDERED: NITROGLYCERIN SL 0.4 MG/TAB TAB SL PRN (00:13)
--- NOTE | 2020-07-20 00:50 | History and Physical Report ---
DATE OF ADMISSION: 07/19/2020 CHIEF COMPLAINT: Not feeling well post-chemo. HISTORY OF PRESENT ILLNESS: This is a 55-year-old female with past medical history significant for hypertension, PVCs, cancer of the right breast, stage II, on chemotherapy, anxiety, presents with palpitations, high blood pressure, concern about electrolyte abnormalities. The patient had her first chemotherapy done and then chemo was changed to Taxol couple of weeks ago. With the first Taxol she felt sick and not feeling well, palpitations and her electrolytes are off and her family doctor stopped hydrochlorothiazide and increased amlodipine to 7.5 mg daily. The second Taxol last she seemed to be better than first one but again today she was feeling palpitations. Blood pressure is going high and she felt her electrolytes her off and came to the ER. In the ER, for possible dehydration, she was given fluids, electrolytes are okay. Later, she complained of chest burning, then called for admission. Her EKG was okay. Troponins were negative. Currently resting comfortably and hemodynamically stable. Blood pressure is still high, somewhat tachycardic. The chest does not feel right, but no pain, no shortness of breath, has some nausea from chemo and poor appetite from chemo. No headache, no blurred vision, no earache, has some runny nose from her chemo, no cough, no shortness of breath, no abdominal pain, has some diarrhea from chemo and she is urinating a lot. No swelling in the legs. Currently resting comfortably. ALLERGIES: PENICILLINS, EGGS. PAST MEDICAL HISTORY: As mentioned above. PAST SURGICAL HISTORY: Colonoscopy, EGDs, ultrasound-guided breast biopsy. MEDICATIONS: The patient at home on amlodipine 7.5 mg p.o. daily, buspirone 5 mg p.o. b.i.d., dexamethasone 8 mg as directed, ferrous sulfate 325 mg p.o. daily, doxepin 50 mg p.o. q. 8 hours p.r.n., losartan 100 mg p.o. q.p.m., magnesium oxide 400 mg p.o. b.i.d., metoprolol succinate 50 mg p.o. a.m., olanzapine 5 mg as directed, prochlorperazine 15 mg p.o. q. 6 hours p.r.n. FAMILY HISTORY: Significant for paternal aunt has breast cancer. SOCIAL HISTORY: . No smoking, no alcohol, no drug use. REVIEW OF SYMPTOMS: As per HPI. Rest of review of systems negative. PHYSICAL EXAMINATION: GENERAL: The patient is of moderate build, not in acute distress. VITAL SIGNS: Temperature 36.8, pulse 94, respiratory rate 16, blood pressure 156/95, oxygen 97% on room air. HEENT: Pupils equal, round, reactive to light. Oral mucosa moist. NECK: No JVD. No neck masses. CARDIOVASCULAR: S1, S2 heard. Tachycardia. No murmur, no gallop. RESPIRATORY SYSTEM: Normal AP diameter. No accessory muscle use. No wheezing, no crackles. ABDOMEN: Soft, bowel sounds present, nontender. No distention. CENTRAL NERVOUS SYSTEM: Cranial nerves II-XII grossly intact. Nonfocal. EXTREMITIES: No edema, no erythema. LABORATORY DATA: WBC 3.07, hemoglobin 8, hematocrit 24.3, platelets 368. Sodium 138, potassium 4.4, chloride 108, bicarbonate 26, BUN 8, creatinine 0.6, serum glucose 94, calcium 9.5, phosphorus 2.5, magnesium 1.9, total bilirubin 0.5, direct bilirubin 0.1, AST 22, ALT 50, alkaline phosphatase of 69. Troponin I less than 0.015. Lipase 162. Urinalysis, trace leukocyte esterase. Urine bacteria negative. SARS-CoV-2 PCR negative. IMAGING: Chest x-ray, no active disease in the chest. EKG: Normal sinus rhythm with rate of 93, no significant change was found. Repeat EKG shows normal sinus rhythm with rate of 92. Nonspecific changes in ST segment in inferior leads. ASSESSMENT AND PLAN: A 55-year-old female presents with not feeling well after chemo. 1. Palpitations, weakness, post-chemo, worried about dehydration and electrolyte abnormalities, got fluids in the ER. Continue gentle fluids. Monitor in the hospital. 2. Anemia and leukopenia from chemo. We will follow the labs. 3. Chest discomfort. The patient has history of anxiety. We will follow the serial enzymes and repeat EKG. First set of troponin is negative. 4. Breast cancer, on chemo, follows with Hematology/Oncology. 5. Hypertension, on losartan, Toprol-XL, and amlodipine. Recently HCTZ was stopped and amlodipine was increased because of the patient's electrolyte abnormalities. The patient's has tachycardia and blood pressure on the higher range. When she came systolic blood pressure 180s, currently high 150s and 160s. We will add Toprol-XL 25 mg in p.m. along with her home medications and monitor the response. 6. Deep venous thrombosis prophylaxis, sequential compression devices. 7. Disposition: Observation in med [facility]. Expect to discharge home and follow with family doctor. SUN
[2020-07-20 05:34] LABS: Basophils # (auto) 0.03 K/uL (0-0.2); Basophils % (auto) 1.6 %; Eosinophils # (auto) 0.04 K/uL (0-0.5); Eosinophils % (auto) 2.2 %; Hematocrit (blood only) 23.2 % (37-47); Hemoglobin 7.5 g/dL (12.0-16.0); Lymphocytes # (auto) 0.37 K/uL (1.2-3.4); Mean Corpuscular Hemoglobin 29.1 pg (25-34); Mean Corpuscular Hgb Conc 32.3 g/dL (32-36); Mean Corpuscular Volume 89.9 fL (80-100); Mean Platelet Volume 9.6 fL (7.4-10.4); Monocytes # (auto) 0.17 K/uL (0.11-0.59); Monocytes % (auto) 9.2 %; Neutrophils # (auto) 1.24 K/uL (1.4-6.5); Platelet Count 316 K/uL (130-400); RDW Coefficient of Variation 16.2 % (11.5-14.5); RDW Standard Deviation 50.9 fL (36.4-46.3); Red Blood Count 2.58 M/uL (4.2-5.4); White Blood Count 1.85 K/uL (4.8-10.8)
[2020-07-20 06:08] LABS: BUN Creatinine Ratio 8.5 (10-20); Calcium 8.8 mg/dl (8.5-10.1); Creatinine Clr Calc Pharmacy 116.6 ml/min; Est GFR (African American) 120.3 ml/min; Est GFR (Non-African American) 103.8 ml/min; Magnesium 2.1 mg/dl (1.8-2.4); Potassium 4.3 mmol/L (3.5-5.1)
[2020-07-20 06:14] LABS: Troponin I 0.016 ng/ml (0-0.045)
[2020-07-20 06:39] LABS: Giant Platelets 1+; Tear Drop Cells 1+
[2020-07-20] MEDS: busPIRone 5 MG TAB PO SCH ×2 (08:14→20:28)
[2020-07-20] MEDS: amLODIPine BESYLATE 5 MG TAB PO SCH (08:14)
[2020-07-20] MEDS: METOPROLOL SUCC 50MG EXT REL TAB PO SCH ×2 (08:15→20:28)
[2020-07-20] MEDS: MAGNESIUM OXIDE 400 MG TAB PO SCH ×2 (08:15→20:28)
[2020-07-20] MEDS: FERROUS SULFATE 325 MG TAB PO SCH (08:15)
--- NOTE | 2020-07-20 08:57 | Hospitalist Progress Note ---
Date of Service July 20, 2020 Assessment & Plan (1) Heart palpitations: ASSESSMENT AND PLAN: A 55-year-old female presents with not feeling well after chemo. 1. Palpitations, weakness, post-chemo, worried about dehydration and electrolyte abnormalities, got fluids in the ER. Continue gentle fluids. Monitor in the hospital. 2. Anemia and leukopenia from chemo. We will follow the labs. Hb dropping, transfuse if Hb<7 3. Chest discomfort. The patient has history of anxiety. Bre are negative 4. Breast cancer, on chemo, follows with Hematology/Oncology. 5. Hypertension, on losartan, Toprol-XL, and amlodipine. Recently HCTZ was stopped and amlodipine was increased because of the patient's electrolyte abnormalities. The patient's has tachycardia and blood pressure on the higher range. When she came systolic blood pressure 180s, currently high 150s and 160s. We will add Toprol-XL 25 mg in p.m. along with her home medications and monitor the response. 6. Deep venous thrombosis prophylaxis, sequential compression devices. 7. Disposition: Observation in [facility]. Expect to discharge home and follow with family doctor. Labs Checked ROS-No Headache, No Visual Changes, No Nausea, No Vomiting, No Fever, No Chills, No Neck Pain or Stiffness, No Chest Pain, No Palpitations, No SOB, No GASTON, No Cough, No Sputum, No Wheezing, No Abdominal Pain, No Diarrhea, No Hematemesis, No Hemoptysis, No Unexpected Weight Loss, No Flank pain, No Melena, No H ematochezia, No Frequency, No Urgency, No Burning, No Hematuria, No Rashes, No Diaphoresis. Appetite is Normal Physical Exam Gen-AAO x 3, NAD, Afebrile, Hair Thin from Chemo Head-NCAT, EOMI, PERRLA, Anicteric Sclera, No Posterior Pharyngeal Erythema Neck-Supple, No JVD, No Thyromegaly, No Masses, No LAD, No Bruits Lungs-Clear to Auscultation Bilaterally, No Rales, No Rhonchi, No Wheezing, No Crepitus Chest-No S4, +S1, +S2, No S3, No Murmurs, No Rubs, No Gallops, No Ectopy Abdomen-Soft, Bowel Sounds Present, Non Tender, Non Distended, No Hepatomegaly, No Splenomegaly, No Palpable Masses, No Rebound, No Rigidity, No Guarding Musculoskeletal-Full Range of Motion Bilaterally, No CVAT Extremities-No Cyanosis, No Clubbing, No Edema Nuero-Cranial Nerves II-XII grossly intact, Motor WNL, DTRs WNL, Strength WNL, Non Focal Psych-Anxious Admission and Anticipated Discharge Date Admission Date: July 19, 2020 Results & Data Results & Data ([facility]) Vital Signs (Past 12 Hours) Vital Signs Temp Pulse Pulse Resp BP BP Pulse Ox 07/20/20 07:55 36.8 C 70 18 149/68 H 96 07/20/20 03:23 37.0 C 77 17 154/91 H 98 07/20/20 01:41 77 07/20/20 00:19 36.8 C 85 18 172/95 H 99 07/20/20 00:11 36.8 C 85 18 172/95 H 99 07/19/20 23:30 18 158/108 H 97 07/19/20 23:00 89 16 154/95 H 97 07/19/20 22:30 96 H 17 156/94 H 96 07/19/20 22:00 94 H 16 156/95 H 97 07/19/20 21:30 97 H 15 158/97 H 97 07/19/20 21:00 96 H 17 166/97 H 98
--- NOTE | 2020-07-20 11:01 | Electrocardiogram Report ---
Test Reason : Blood Pressure : / mmHG Vent. Rate : 092 BPM Atrial Rate : 092 BPM P-R Int : 160 ms QRS Dur : 088 ms QT Int : 360 ms P-R-T Axes : 055 059 047 degrees QTc Int : 445 ms Normal sinus rhythm Left atrial enlargement Borderline ECG When compared with ECG of 12-JUL-2020 10:53, T wave inversion no longer evident in Inferior leads T wave inversion no longer evident in Lateral leads Confirmed by Manjit Fernandez ([id number]) on 07/20/2020 11:01:02 AM Referred By: REFERRED SELF Confirmed By:Manjit Fernandez
--- NOTE | 2020-07-20 11:13 | Electrocardiogram Report ---
Test Reason : Blood Pressure : / mmHG Vent. Rate : 093 BPM Atrial Rate : 093 BPM P-R Int : 176 ms QRS Dur : 088 ms QT Int : 384 ms P-R-T Axes : 066 060 052 degrees QTc Int : 477 ms Normal sinus rhythm Normal ECG When compared with ECG of 19-JUL-2020 16:17, No significant change was found Confirmed by Manjit Fernandez ([id number]) on 07/20/2020 11:13:17 AM Referred By: REFERRED SELF Confirmed By:Manjit Fernandez
[2020-07-20] MEDS ORDERED: LABETALOL HCL IV 5 MG/ML 20ML IV STA (15:56)
--- NOTE | 2020-07-20 16:41 | Electrocardiogram Report ---
Test Reason : Blood Pressure : / mmHG Vent. Rate : 077 BPM Atrial Rate : 077 BPM P-R Int : 164 ms QRS Dur : 086 ms QT Int : 392 ms P-R-T Axes : 064 063 056 degrees QTc Int : 443 ms Normal sinus rhythm Normal ECG When compared with ECG of 19-JUL-2020 22:12, No significant change Confirmed by Manjit Fernandez ([id number]) on 07/20/2020 4:41:06 PM Referred By: REFERRED SELF Confirmed By:Manjit Fernandez
[2020-07-20] MEDS ORDERED: LABETALOL HCL IV 5 MG/ML 20ML IV PRN (17:34)
[2020-07-20] MEDS: LOSARTAN POTASSIUM 50 MG TAB PO SCH (20:28)
[2020-07-21 07:34] LABS: Basophils # (auto) 0.06 K/uL (0-0.2); Basophils % (auto) 1.8 %; Eosinophils # (auto) 0.06 K/uL (0-0.5); Eosinophils % (auto) 1.8 %; Hematocrit (blood only) 25.8 % (37-47); Hemoglobin 8.5 g/dL (12.0-16.0); Immature Granulocytes # (auto) 0.05 K/uL (0.00-0.02); Immature Granulocytes % (auto) 1.5 %; Lymphocytes # (auto) 0.32 K/uL (1.2-3.4); Lymphocytes % (auto) 9.7 %; Mean Corpuscular Hgb Conc 32.9 g/dL (32-36); Mean Corpuscular Volume 88.1 fL (80-100); Mean Platelet Volume 9.4 fL (7.4-10.4); Monocytes # (auto) 0.29 K/uL (0.11-0.59); Monocytes % (auto) 8.8 %; Neutrophils # (auto) 2.52 K/uL (1.4-6.5); Neutrophils % (auto) 76.4 %; Platelet Count 351 K/uL (130-400); RDW Coefficient of Variation 16.3 % (11.5-14.5); RDW Standard Deviation 50.5 fL (36.4-46.3); Red Blood Count 2.93 M/uL (4.2-5.4)
[2020-07-21 08:22] LABS: Albumin Globulin Ratio 1.1 (0.9-2); Albumin Level 3.8 gm/dl (3.4-5.0); Bilirubin,Total 0.5 mg/dl (0.2-1); Calcium 10.2 mg/dl (8.5-10.1); Est GFR (African American) 114.1 ml/min; Est GFR (Non-African American) 98.5 ml/min; Globulin 3.6 gm/dl (2.5-4.0); Potassium 3.7 mmol/L (3.5-5.1); Total Protein 7.4 gm/dl (6.4-8.2)
[2020-07-21] MEDS: FERROUS SULFATE 325 MG TAB PO SCH (08:23)
[2020-07-21] MEDS: busPIRone 5 MG TAB PO SCH ×2 (08:23→20:39)
[2020-07-21] MEDS: amLODIPine BESYLATE 5 MG TAB PO SCH (08:23)
[2020-07-21] MEDS: METOPROLOL SUCC 50MG EXT REL TAB PO SCH ×2 (08:23→20:39)
[2020-07-21] MEDS: MAGNESIUM OXIDE 400 MG TAB PO SCH ×2 (08:23→20:39)
--- NOTE | 2020-07-21 14:43 | Consultation Report ---
DATE OF CONSULTATION: 07/21/2020 NEPHROLOGY CONSULTATION NOTE REASON FOR CONSULT: Labile hypertension as well as issues with electrolytes after chemotherapy. HISTORY OF PRESENT ILLNESS: The patient is a 55-year-old female with cancer of the breast, on chemotherapy as well as anxiety and hypertension, presented to the hospital yesterday with chief complaints of palpitations, high blood pressure and extreme concern about the electrolyte abnormalities. The patient has been on hydrochlorothiazide for more than a year and did not have a problem before, but was recently stopped because of electrolyte issues, and amlodipine was increased for hypertension management. The patient was getting Adriamycin, carboplatin before, but they are finished and now she is only getting Taxol. Since admission yesterday, the patient has received a slightly higher dose of metoprolol and some IV labetalol and her home medication, and with that, her blood pressure seems well controlled as well as her heart rate. She is otherwise asymptomatic and no longer has palpitations and anxiety attacks. During the hospital stay, she has a completely normal kidney function and a completely normal electrolyte function. For blood pressure, she is currently getting losartan 100 daily, metoprolol 50 daily, amlodipine 7.5 daily and metoprolol 50 twice daily. ALLERGIES: PENICILLIN AND EGGS. PAST MEDICAL HISTORY: Hypertension, history of PVCs, cancer of the right breast, status post chemotherapy, anxiety, colonoscopy, EGD, ultrasound-guided breast biopsy. MEDICATIONS: At home was reviewed and is as per the H and P. FAMILY HISTORY: Significant for a paternal aunt who has breast cancer. Family history is negative for renal disease or dialysis. SOCIAL HISTORY: . No smoking, no alcohol, no drugs. REVIEW OF SYSTEMS: As per HPI. The only positive review of system was palpitation and extreme anxiety. Otherwise, 12 systems reviewed and negative. PHYSICAL EXAMINATION: GENERAL: A middle-aged white female who is of moderate built. She is not in any acute respiratory distress. She is awake, alert, oriented x3 and was able to give me a detailed account of her medical history with good accuracy. NECK: Supple. No jugular venous distention. CHEST: Bilaterally clear to auscultation. CARDIOVASCULAR: S1, S2 regular. ABDOMEN: Soft, nontender. EXTREMITIES: Show no edema. NEUROLOGIC: Awake, alert, oriented, normal speech, normal affect. Moving all 4 extremities. No focal deficit noted. SKIN: Shows no rashes. LABORATORY TESTS: Reviewed in detail. She has essentially completely normal electrolytes and normal kidney function. Hemoglobin is low, but this is not new and related with chemotherapy. Chest x-ray was done and was unremarkable. ASSESSMENT AND PLAN: A 55-year-old female with history of hypertension and recent chemotherapy presenting with anxiety attacks, palpitation associated with uncontrolled blood pressure with readings in the 180s. I have been consulted for hypertension and electrolyte issues. Hypertension: It appears she needs a slightly higher dose of metoprolol to control her anxiety, palpitation, and tachycardia status. She seems to be doing better with 50 mg twice daily of metoprolol. The patient says that when she was on hydrochlorothiazide, her blood pressure was much reliably controlled. Given that she is still having chemotherapy, I would not feel comfortable restarting the hydrochlorothiazide given electrolyte issues she had. The electrolyte issue was probably a combination of hydrochlorothiazide and chemo-induced tubular toxicity. Creat was high and K was low which then led to stopping HCTZ outpt. Other blood pressure medication will be continued as it is. There is room to go up on the amlodipine to 10 mg daily. MTDD
[2020-07-21] MEDS ORDERED: LORazepam 0.5 MG TAB PO PRN (14:52)
--- NOTE | 2020-07-21 16:01 | Hospitalist Progress Note ---
Date of Service July 21, 2020 Assessment & Plan (1) Heart palpitations: ASSESSMENT AND PLAN: A 55-year-old female presents with not feeling well after chemo. 1. Palpitations, weakness, post-chemo, worried about dehydration and electrolyte abnormalities, got fluids in the ER. Continue gentle fluids. Monitor in the hospital. -- clinically improving management of HTN noted below 2. Anemia and leukopenia from chemo. -- counts improving monitor -- check Iron, Folate, B12 3. Chest discomfort. -- The patient has history of anxiety. Bre are negative 4. Breast cancer, on chemo, follows with Hematology/Oncology. 5. Hypertension - per Dr. Henri Tobias - on losartan, Toprol-XL, and amlodipine. Recently HCTZ was stopped and amlodipine was increased because of the patient's electrolyte abnormalities. The patient's has tachycardia and blood pressure on the higher range. When she came systolic blood pressure 180s, currently high 150s and 160s. We will add Toprol-XL 25 mg in p.m. along with her home medications and monitor the response. - BP seems to be improving with addition of Metoprolol XL 50mg at HS continue to monitor may need to increase Amlodipine to 10mg or add Clonidine 0.1mg BID monitor 6. Deep venous thrombosis prophylaxis, sequential compression devices. . 7. Disposition: anticipate d/c home when medically stable Admission and Anticipated Discharge Date Admission Date: July 20, 2020 Subjective ff up for weakness, HTN post chemo, etc seen sitting up in bed, comfortable states she feels improved very concerned regarding HTN and associated palpitations patient reassured no active chest pain, dyspnea, palpitations, dizziness, nausea/vomiting, abdominal pain no other symptoms Review of Systems Review of Systems: All systems reviewed & are unremarkable except as noted in Subjective Physical Exam Physical Exam: General- oriented x 3, not in distress, speaks in sentences with no effort or accessory muscle use Head- atraumatic Eyes- PERRL, EOMI, anicteric ENT- oropharynx clear Neck- supple, no JVD, no adenopathy, no thyromegaly; carotids +2/2, no bruits appreciated Lungs- clear to auscultation bilaterally, no rales/wheezes Port site no signs of infection Heart- normal rate, regular rhythm; no murmur, no gallop, no rub appreciated Abdomen- normal bowel sounds, nondistended, soft, nontender, no masses or hepatosplenomegaly Extremities- no pretibial edema, no calf tenderness; peripheral pulses intact Neuro- alert, oriented x 3; CN 2-12 grossly intact; motor 5/5 bilaterally;sensation 100% on all extremities; no other gross focal neurologic deficits Skin- warm & dry Results & Data Results & Data ([facility]) Vital Signs (Past 12 Hours) Vital Signs Temp Pulse Resp BP Pulse Ox 07/21/20 12:00 36.6 C 70 20 144/89 H 98 07/21/20 09:27 138/88 07/21/20 08:00 36.7 C 83 83 H 148/100 H 99 Laboratory Results Laboratory Results - last 24 hr 07/21/20 07/21/20 07:22 07:22 WBC 3.30 L RBC 2.93 L Hgb 8.5 L Hct 25.8 L MCV 88.1 MCH 29.0 MCHC 32.9 RDW Std Deviation 50.5 H RDW Coeff of Dmitry 16.3 H Plt Count 351 MPV 9.4 Immature Gran % (Auto) 1.5 Neut % (Auto) 76.4 Lymph % (Auto) 9.7 Becker % (Auto) 8.8 Eos % (Auto) 1.8 Baso % (Auto) 1.8 Neut # (Auto) 2.52 Lymph # (Auto) 0.32 L Becker # (Auto) 0.29 Eos # (Auto) 0.06 Baso # (Auto) 0.06 Immature Gran # (Auto) 0.05 H Sodium 140 Potassium 3.7 Chloride 110 H Carbon Dioxide 24 Anion Gap 6.0 BUN 10 D Creatinine 0.68 Est Cr Clr Drug Dosing 98.0 Est GFR ( Amer) 114.1 Est GFR (Non-Af Amer) 98.5 BUN/Creatinine Ratio 15.0 Glucose 96 Calcium 10.2 H D Total Bilirubin 0.5 AST 30 ALT 57 Alkaline Phosphatase 72 Total Protein 7.4 Albumin 3.8 Globulin 3.6 Albumin/Globulin Ratio 1.1
[2020-07-21] MEDS: LOSARTAN POTASSIUM 50 MG TAB PO SCH (20:39)
[2020-07-22 08:35] LABS: Basophils # (auto) 0.08 K/uL (0-0.2); Basophils % (auto) 2.2 %; Eosinophils # (auto) 0.11 K/uL (0-0.5); Hematocrit (blood only) 26.2 % (37-47); Hemoglobin 8.6 g/dL (12.0-16.0); Immature Granulocytes # (auto) 0.13 K/uL (0.00-0.02); Immature Granulocytes % (auto) 3.6 %; Mean Corpuscular Hemoglobin 29.2 pg (25-34); Mean Corpuscular Hgb Conc 32.8 g/dL (32-36); Mean Corpuscular Volume 88.8 fL (80-100); Mean Platelet Volume 9.6 fL (7.4-10.4); Monocytes # (auto) 0.39 K/uL (0.11-0.59); Monocytes % (auto) 10.7 %; Neutrophils # (auto) 2.52 K/uL (1.4-6.5); Neutrophils % (auto) 69.5 %; Nucleated RBC # (auto) 0.05 K/uL (0-0); Nucleated RBC % (auto) 1.4 %; Platelet Count 351 K/uL (130-400); RDW Coefficient of Variation 16.9 % (11.5-14.5); RDW Standard Deviation 51.9 fL (36.4-46.3); Red Blood Count 2.95 M/uL (4.2-5.4); White Blood Count 3.63 K/uL (4.8-10.8)
[2020-07-22] MEDS: amLODIPine BESYLATE 5 MG TAB PO SCH (08:38)
[2020-07-22] MEDS: busPIRone 5 MG TAB PO SCH (08:38)
[2020-07-22] MEDS: METOPROLOL SUCC 50MG EXT REL TAB PO SCH (08:38)
[2020-07-22] MEDS: FERROUS SULFATE 325 MG TAB PO SCH (08:38)
[2020-07-22] MEDS: MAGNESIUM OXIDE 400 MG TAB PO SCH (08:38)
[2020-07-22 09:17] LABS: BUN Creatinine Ratio 17.9 (10-20); Creatinine Clr Calc Pharmacy 89.1 ml/min; Est GFR (Non-African American) 89.7 ml/min; Potassium 3.7 mmol/L (3.5-5.1)
--- NOTE | 2020-07-22 10:17 | Nephrology Progress Note ---
Date of Service July 22, 2020 Assessment & Plan Admission and Anticipated Discharge Date Admission Date: July 20, 2020 Subjective No new issues. BP and HR normal. PHYSICAL EXAMINATION: GENERAL: A middle-aged white female who is of moderate built. She is not in any acute respiratory distress. She is awake, alert, oriented x3 and was able to give me a detailed account of her medical history with good accuracy. NECK: Supple. No jugular venous distention. CHEST: Bilaterally clear to auscultation. CARDIOVASCULAR: S1, S2 regular. ABDOMEN: Soft, nontender. EXTREMITIES: Show no edema. NEUROLOGIC: Awake, alert, oriented, normal speech, normal affect. Moving all 4 extremities. No focal deficit noted. SKIN: Shows no rashes. LABORATORY TESTS: Reviewed in detail. Normal lytes and normal Renal function ASSESSMENT AND PLAN: A 55-year-old female with history of hypertension and recent chemotherapy with Adriamycin and carboplatin and Taxol, presenting with anxiety attacks, palpitation associated with uncontrolled blood pressure with readings in the 180s. I have been consulted for hypertension and electrolyte issues. Hypertension: Normal now. continue same current meds outpt also. Electrolyte issues--none now. Stable for discharge from renal standpoint Results & Data ([facility]) Vital Signs (Past 12 Hours) Vital Signs Temp Pulse Pulse Resp BP BP Pulse Ox 07/22/20 08:00 36.4 C L 74 69 19 110/60 95 07/22/20 04:27 36.8 C 71 18 104/67 97 07/22/20 00:26 74 07/21/20 23:35 36.7 C 73 18 135/81 100
--- NOTE | 2020-07-22 10:46 | Discharge Summary ---
Date of Service July 22, 2020 Admission HPI Per Admitting Provider 55-year-old female with past medical history significant for hypertension, PVCs, cancer of the right breast, stage II, on chemotherapy, anxiety, presents with palpitations, high blood pressure, concern about electrolyte abnormalities. The patient had her first chemotherapy done and then chemo was changed to Taxol couple of weeks ago. With the first Taxol she felt sick and not feeling well, palpitations and her electrolytes are off and her family doctor stopped hydrochlorothiazide and increased amlodipine to 7.5 mg daily. The second Taxol last she seemed to be better than first one but again today she was feeling palpitations. Blood pressure is going high and she felt her electrolytes her off and came to the ER. In the ER, for possible dehydration, she was given fluids, electrolytes are okay. Later, she complained of chest burning, then called for admission. Her EKG was okay. Troponins were negative. Currently resting comfortably and hemodynamically stable. Blood pressure is still high, somewhat tachycardic. The chest does not feel right, but no pain, no shortness of breath, has some nausea from chemo and poor appetite from chemo. No headache, no blurred vision, no earache, has some runny nose from her chemo, no cough, no shortness of breath, no abdominal pain, has some diarrhea from chemo and she is urinating a lot. No swelling in the legs. Currently resting comfortably. Admission Exam Per Admitting Provider GENERAL: The patient is of moderate build, not in acute distress. VITAL SIGNS: Temperature 36.8, pulse 94, respiratory rate 16, blood pressure 156/95, oxygen 97% on room air. HEENT: Pupils equal, round, reactive to light. Oral mucosa moist. NECK: No JVD. No neck masses. CARDIOVASCULAR: S1, S2 heard. Tachycardia. No murmur, no gallop. RESPIRATORY SYSTEM: Normal AP diameter. No accessory muscle use. No wheezing, no crackles. ABDOMEN: Soft, bowel sounds present, nontender. No distention. CENTRAL NERVOUS SYSTEM: Cranial nerves II-XII grossly intact. Nonfocal. EXTREMITIES: No edema, no erythema. Principal Diagnosis 1. Palpitations, weakness, 2. Anemia and leukopenia from chemo. 3. Chest discomfort. 4. Breast cancer 5. Hypertension Discharge Exam ROS-No Headache, No Visual Changes, No Nausea, No Vomiting, No Fever, No Chills, No Neck Pain or Stiffness, No Chest Pain, No Palpitations, No SOB, No GASTON, No Cough, No Sputum, No Wheezing, No Abdominal Pain, No Diarrhea, No Hematemesis, No Hemoptysis, No Unexpected Weight Loss, No Flank pain, No Melena, No Hematochezia, No Frequency, No Urgency, No Burning, No Hematuria, No Rashes, No Diaphoresis. Appetite is Normal Physical Exam Gen-AAO x 3, NAD, Afebrile Head-NCAT, EOMI, PERRLA, Anicteric Sclera, No Posterior Pharyngeal Erythema Neck-Supple, No JVD, No Thyromegaly, No Masses, No LAD, No Bruits Lungs-Clear to Auscultation Bilaterally, No Rales, No Rhonchi, No Wheezing, No Crepitus Chest-No S4, +S1, +S2, No S3, No Murmurs, No Rubs, No Gallops, No Ectopy Abdomen-Soft, Bowel Sounds Present, Non Tender, Non Distended, No Hepatomegaly, No Splenomegaly, No Palpable Masses, No Rebound, No Rigidity, No Guarding Musculoskeletal-Full Range of Motion Bilaterally, No CVAT Extremities-No Cyanosis, No Clubbing, No Edema Nuero-Cranial Nerves II-XII grossly intact, Motor WNL, DTRs WNL, Strength WNL, Non Focal Psych-Normal Mood Discharge Data Allergies Allergy/AdvReac Type Severity Reaction Status Date / Time Penicillins Allergy Severe Turned blue Verified 07/19/20 16:44 egg AdvReac Intermediate Gastrointestinal Verified 07/19/20 16:44 Upset Consultations 07/19/20 21:40 ED Decision to Admit Stat 07/20/20 15:59 Consult Nephrology Routine Current Diagnoses Palpitations (07/20/20) Allergies Penicillins Allergy (Severe, Verified 07/19/20 16:44) Turned blue egg Adverse Reaction (Intermediate, Verified 07/19/20 16:44) Gastrointestinal Upset Height/Weight/Isolation Height 5 ft 5 in Weight 80.9 kg Chemistry 07/21/20 07/22/20 07:22 07:46 Sodium 140 138 Potassium 3.7 3.7 Chloride 110 H 108 H Carbon Dioxide 24 24 Anion Gap 6.0 6.0 BUN 10 D 13 Creatinine 0.68 0.75 Glucose 96 88 Hospital Course (1) Heart palpitations: ASSESSMENT AND PLAN: A 55-year-old female presents with not feeling well after chemo. 1. Palpitations, weakness, post-chemo, worried about dehydration and electrolyte abnormalities, got fluids in the ER. Continue gentle fluids. Monitor in the hospital. -- clinically improving DC home on Current BP regimen 2. Anemia and leukopenia from chemo. -- counts improving monitor 3. Chest discomfort. -- The patient has history of anxiety. Bre are negative 4. Breast cancer, on chemo, follows with Hematology/Oncology. 5. Hypertension - on losartan, Toprol-XL, and amlodipine. Recently HCTZ was stopped and amlodipine was increased because of the patient's electrolyte abnormalities. The patient's has tachycardia and blood pressure on the higher range. When she came systolic blood pressure 180s, currently high 150s and 160s. We will add Toprol-XL 25 mg in p.m. along with her home medications and monitor the response. - BP seems to be improving with addition of Metoprolol XL 50mg at HS 6. Deep venous thrombosis prophylaxis, sequential compression devices. . 7. Disposition: d/c home today Total Time Total Time Spent Total Time Spent (In Minutes): 45 mins Total Time Includes: Examination of the Patient, Discharge Planning, Medication Reconciliation and Communication With Other Providers Discharge Plan Discharge Items Patient Disposition: Home - Self-Care Reason For Visit: Dehydration Discharge Diagnosis: 1. Palpitations, weakness, 2. Anemia and leukopenia from chemo. 3. Chest discomfort. 4. Breast cancer 5. Hypertension Condition on Discharge: Good Health Concerns: Blood pressure Activity: Resume your previous activity Lifting: Gradually increase as tolerated Bathing: No limitations Sexual Activity: When tolerated Exercise/Sports: Gradually increase as tolerated Driving/Machine Use: No limitations Weightbearing: Full weightbearing Non-emergency contact: Primary Care Provider and Cell Tester Call non-emergency contact if: you have any medication questions Follow-up/Referrals: Topher Avila MD [Surgeon] - (1-2 weeks) Michael Villafana DO [Physician] - (Date & Time 07/27/2020 2:00 PM Provider Michael Villafana DO [facility] ) Diet: Regular Addtl Attending Provider Instructions: Monitor your Blood pressure at home with a home kit and notify PCP and or Nephrology if BP shoots up Pending Studies at Discharge: No Stand-Alone Forms: My [facility], Smoking Cessation Medications and DC Order Prescriptions: New metoprolol succinate 50 mg Tablet Extended Release 24 Hr 50 mg PO BID Qty: 60 RF: 0 Continued losartan 100 mg tablet 100 mg PO QPM RF: 0 buspirone [BuSpar] 5 mg Tablet 5 mg PO BID RF: 0 olanzapine 5 mg tablet 5 mg PO DIRECTED PRN (Reason: NAUSEA AFTER CHEMO) RF: 0 amlodipine 5 mg tablet 7.5 mg PO DAILY RF: 0 prochlorperazine maleate 10 mg tablet 10 mg PO Q6 PRN (Reason: Nausea) RF: 0 dexamethasone 4 mg tablet 8 mg PO DIRECTED PRN (Reason: AFTER CHEMO) RF: 0 hydroxyzine pamoate [Vistaril] 50 mg capsule 50 mg PO Q8H PRN (Reason: sleep/anxiety) Qty: 21 RF: 0 magnesium oxide 400 mg (241.3 mg magnesium) tablet 400 mg PO BID RF: 0 ferrous sulfate [iron] 325 mg (65 mg iron) Tablet 325 mg PO DAILY RF: 0 Discontinued metoprolol succinate 50 mg Tablet Extended Release 24 Hr 50 mg PO QAM Qty: 7 RF: 0 Discharge Orders: Discharge Order (Routine); Ordered 07/22/20 Ordered By: Henri Tobias Admission Data Admit Date/Time: 07/20/20 15:57 Attending Provider: Henri Tobias Admit Provider: Graeme Wyatt Primary Care Provider: Gema Avila Other Providers: Graeme Wyatt ; Eladia Kirkland ; Henri Tobias
[2020-07-22 11:17] LABS: Folate (Folic Acid) > 20.00 ng/ml (>5.38); Vitamin B12 > 2000 pg/ml (193-986)
== END 2020-07-22 17:50 | disposition home or self-care (01) | DRG 310 ==
LOC: ED 15:36 → 2S 15:36 → SUATTDRO 07-20 15:57

== ENCOUNTER 2022-02-06 09:39 | Inpatient (IN) ==
[2022-02-06] MEDS ORDERED: SODIUM CHLORIDE 0.9% 500 ML IV STA (10:20)
[2022-02-06] MEDS ORDERED: SODIUM CHLORIDE 0.9% 1000ML 1,000 ML IV SCH (10:30)
[2022-02-06 11:18] LABS: Albumin Globulin Ratio 0.5 (0.9-2); Albumin Level 2.4 gm/dl (3.4-5.0); BUN Creatinine Ratio 21.6 (10-20); Bilirubin,Total 3.6 mg/dl (0.2-1.0); Calcium 8.1 mg/dl (8.5-10.1); Creatinine Clr Calc Pharmacy 75.5 ml/min; Est GFR (African American) 104.2 ml/min; Est GFR (Non-African American) 89.9 ml/min; Globulin 4.4 gm/dl (2.5-4.0); Magnesium 1.9 mg/dl (1.7-2.4); Potassium 3.3 mmol/L (3.5-5.1); Total Protein 6.8 gm/dl (6.0-8.3)
[2022-02-06 11:21] LABS: Troponin I High Sensitivity 14.6 pg/ml (0-14)
--- NOTE | 2022-02-06 11:29 | XRay Report ---
XR chest 1V portable HISTORY: Dyspnea COMPARISON: Chest 09/10/2020. FINDINGS: No pneumothorax. Cardiac silhouette is top normal in size. No evidence for pulmonary edema. Bilateral tissue expanders are noted within the chest. This likely accounts for the hazy appearance of the lung bases. Otherwise, no focal lung consolidations to suggest pneumonia. Small left basilar l inear densities favor subsegmental atelectasis. IMPRESSION: A few left basilar linear densities which favor subsegmental atelectasis. A pneumonia could also have a similar appearance in the appropriate clinical setting. ACT 112: Negative or not required by law. Electronically signed by: Sammy Fournier M.D. 02/06/2022 11:27 AM
[2022-02-06 11:42] LABS: Hematocrit (blood only) 18.6 % (34.1-44.9); Hemoglobin 5.7 g/dl (12.0-16.0); Mean Corpuscular Hemoglobin 30.6 pg (25.0-34.0); Mean Corpuscular Hgb Conc 30.6 g/dL (32.0-36.0); Mean Platelet Volume 10.7 fL (9.4-12.3); Nucleated RBC # (auto) 1.18 K/uL (0-0); Nucleated RBC % (auto) 14.7 %; Platelet Count 94 K/uL (130-400); RDW Coefficient of Variation 24.8 % (11.5-14.5); RDW Standard Deviation 85.5 fL (36.4-46.3); Red Blood Count 1.86 M/uL (3.93-5.22); White Blood Count 8.01 K/ul (4.8-10.8)
[2022-02-06] MEDS ORDERED: SODIUM CHLORIDE 0.9% 250 ML IV PRN (11:44)
--- NOTE | 2022-02-06 12:02 | CT Scan Report ---
CT SCAN OF THE ABDOMEN AND PELVIS WITHOUT IV CONTRAST CLINICAL HISTORY: Abdominal distention. Lower abdominal pain. History of breast cancer. COMPARISON STUDY: No priors. TECHNIQUE: CT scan of the abdomen and pelvis is performed from the lung bases to the proximal femora. Images are reviewed in the axial, sagittal, and coronal planes. IV contrast was not administered for this examination. Note that the examination is suboptimal without oral and IV contrast. A dose lower ing technique was utilized adhering to the principles of ALARA. CT DOSE: 323.79 mGy.cm FINDINGS: Lung bases: The heart is normal in size and without pericardial effusion. Interlobular septal thicken ing suggests fluid overload. Scarring/atelectasis is seen bilaterally and small pleural effusions are noted. Bilateral breast implants are partially imaged. Liver: The unenhanced liver is normal in size and heterogeneous in attenuation. There is nodularity o f the hepatic surface contour which could represent cirrhosis versus pseudocirrhosis. There is no int rahepatic biliary ductal dilatation. Hepatic cysts measure up to 1.7 cm. Gallbladder: Gallstones are suspected. There is no CT evidence of acute cholecystitis. Spleen: Normal in size and attenuation. Pancreas: The unenhanced pancreas is grossly unremarkable. Adrenal glands: Unremarkable. Kidneys: The unenhanced kidneys are normal in size and without hydronephrosis. There is fullness of t he renal collecting systems bilaterally. There are no renal calculi identified. There is no evidence of contour deforming renal mass lesion. Abdominal vasculature: The abdominal aorta is normal in course and caliber. Bowel: There is moderate colonic diverticulosis without CT evidence of acute diverticulitis. No bowel obstruction is seen. Question mild wall thickening throughout the colon. The appendix is not clearl y visualized Peritoneum: There is a large volume of abdominopelvic ascites. No intraperitoneal free air is seen. Lymphadenopathy: None. Pelvic viscera: The bladder wall appears circumferentially thickened. The uterus and adnexa are gt l as visualized. Skeletal structures: There is evidence of extensive/diffuse multifocal osteoblastic metastatic diseas e. Soft tissues: There is body wall edema. IMPRESSION: 1. Large volume of abdominopelvic ascites. 2. In addition to ascites, there are small pleural effusions, intralobular septal thickening at the l bárbara bases, and anasarca of the body wall. These findings suggest fluid overload. 3. There is extensive/diffuse multifocal osteoblastic metastatic disease. 4. Question wall thickening of the colon, which is suboptimally assessed due to surrounding ascites. Clinical correlation will be required. 5. Cirrhotic liver morphology. This could represent cirrhosis versus pseudocirrhosis. No hepatic mass lesion is clearly seen on this unenhanced examination. 6. Suspect cholelithiasis. 7. Additional findings as above. ACT 112: Negative or not required by law. Electronically signed by: Nathanael Bergman M.D. 02/06/2022 12:01 PM
--- NOTE | 2022-02-06 12:25 | History & Physical Report ---
Date of Service February 06, 2022 Assessment & Plan (1) Anemia: (2) Ascites: (3) Breast cancer: (4) Elevated transaminase level: (5) Generalized weakness: (6) Chronic systolic CHF (congestive heart failure): (7) Hypertension: Plan: 57 yo F with PMHx of invasive lobular carcinoma, right breast, originally diagnosed 04/07/19 21, ER positive, MI positive, HER2/almaz negative. Metastasis to axillary lymph node and extensive osseous metastasis. S/p chemotherapy with Paclitaxol x12 weeks (April 2020-September 2020) and maintained on anastrosole since Nov 2020. S/p radiation treatment. S/p bilateral total mastectomy in November 2020, immediately had bilateral reconstruction with placement of expanders. Other PMHx includes chronic systolic heart failure, HTN, anemia ventricular bigeminy. She was seen by her PCP on 02/01/22 due to shortness of breath, dyspnea on exertion and worsening fatigue which has been going on for about 1.5 weeks. Presents to ER today with worsening dyspnea on exertion and weakness. - Admit to med surg with tele - Pt remains on anastrozole daily for hx of breast cancer. Follows with Dr. Lambert as outpatient. - Abdominal paracentesis ordered - discussed with radiology, will try to get it done today, obtain cytology, attempt removal of 4-5 L. - New cirrhosis seen on CT abdomen - does not drink alcohol and not on medications that would cause such. - Liver enzyme elevation is chronic since August s/p Zometa infusion for osseous metastasis from breast cancer, following with outpatient hepatology, scheduled biopsy of the liver was outpatient for 02/08/22. Will attempt to do inpatient here but Hgb/Hct 5.7/18.6 so requires transfusion first. 2 units PRBCs ordered, give lasix 40 IV inbetween units, place stearns catheter for strict i/os, trend LFTs - GI consulted for liver biopsy - possibly tomorrow? Will require hepatology follow up - Hypokalemia, will replace with po potassium, allow diet - Imaging of CXR reviewed, does not appear to have fluid overload in lungs. Shortness of breath is more likely due to anemia and ascites - Consider antibiotics after paracentesis for SBP prophylaxis, also consider with hx of new found cirrhosis the possibility of esophageal varices. Pt denies any overt bleeding. - Bedside toilet due to shortness of breath - PT/OT consults - Continue supportive care DVT ppx: - Teds, scds, no chemical anticoagulation in the setting of paracentesis today CODE: FULL Dispo: From home, lives with Ron, likely to remain in the hospital x 1-2 days. History of Present Illness Chief Complaint: Shortness of breath, weakness Primary Care Provider: Cheko Randhawa MD This is a 57-year-old female with PMHx of invasive lobular carcinoma, right breast, originally diagnosed 04/07/19 21, ER positive, MI positive, HER2/almaz negative. Metastasis to axillary lymph node and extensive osseous metastasis. Status post chemotherapy with Paclitaxol x12 weeks (April 2020-September 2020) and maintained on anastrosole since Nov 2020. S/p radiation treatment. Status post bilateral total mastectomy in November 2020, immediately had bilateral reconstruction with placement of expanders. Other PMHx includes chronic systolic heart failure, HTN, anemia ventricular bigeminy. Pt presents to the ER today with worsening dyspnea on exertion and weakness. Over the summer the patient received a Zometa infusion. Shortly after that it was noticed that her LFTs increased. At her visit with Dr. Lambert on 11/09/2021 patient did not receive Zometa infusion due to elevated LFTs and did not want to resume until improvement in lab results. Repeat heme/onc visit her labs were again noted to be elevated and a liver ultrasound was ordered. Her results from 11/30/21 showed two hepatic cycst noted, the large measured 1.4 x 1.5 x 0.9 cm and ascites was noted anterior to the liver, also cholelithiasis without evidence of cholecystitis. She was referred to outpatient hepatology and it was determined that the elevation is likely due to the Zometa infusion earlier this summer as she is not on other medication that would cause LFT elevated. She has a liver biopsy scheduled for 02/08/22 due to persistent elevation with Dr. Arce at [facility]. She was seen by her PCP on 02/01/22 due to shortness of breath, dyspnea on exertion and worsening fatigue which has been going on for about 1.5 weeks. They ordered a chest xray and it did not show fluid. She stopped taking spironolactone and Jardiance about 3-4 weeks ago because of peeing all he time and dizziness. She reports her abdomen feels "so hard" today. She admits to looking pale recently. She denies any hematuria or blood in stool, or other ove rt bleeding. Pt notes recent decrease in metoprolol succinate to 25mg HS. She did take all her own medication last night. Pt notes she is unable to walk more than 20 feet due to shortness of breath currently. Allergies Allergy/AdvReac Type Severity Reaction Status Date / Time Penicillins Allergy Unknown Turned blue Verified 06/17/21 11:27 egg AdvReac Unknown Gastrointestinal Verified 06/17/21 11:27 Upset Home Medications Medication Instructions Recorded Confirmed Type buspirone 5 mg tablet 10 mg PO BID 06/08/20 02/06/22 History anastrozole 1 mg tablet 1 mg PO QAM 06/17/21 02/06/22 History citalopram 10 mg tablet (Celexa) 10 mg PO HS 06/17/21 02/06/22 History famotidine 20 mg tablet 20 mg PO BID 06/17/21 02/06/22 History metoprolol succinate 50 mg 25 mg PO DAILY 02/06/22 02/06/22 History tablet,extended release 24 hr Past Med/Surg History Medical History Anxiety Bigeminy Breast cancer DX MAR 2020/SX/HX CHEMO (LAST CHEMO SEP 2020) , HX RADIATION (FEB 2021) Complication of chemotherapy HIGH BLOOD PRESSURE/ ? D/T STEROIDS Diverticular disease Family health problem AUNT HAD A HEART ATTACK AND THE MED GIVEN HAD A 1 IN A MILLION CHANCE OF REACTION. AUNT HAD REACTION AND DIDN'T MAKE IT. NO FURTHER DETAILS KNOWN. Heart problem heart function decreased Hypertension hx PVCs (premature ventricular contractions) Sleep apnea NOT DX - NO HX SLEEP STUDY...PLAN TO DO FOLLOWING THIS CARDIAC PROCEDURE Surgical History History of bilateral mastectomy WITH SPACERS History of colonoscopy WITH ENDOSCOPY History of surgery HX PORT AND SINCE REMOVED (LAST WEEK REMOVED / HEALING) History of tonsillectomy and adenoidectomy Family History Denies family history of COPD (chronic obstructive pulmonary disease) Social History Smoking Status: Never smoker Second Hand Exposure: No; Hx Alcohol Use: No Hx Substance Use: No Preferred Language: Greek Communication Ability: Effective Hand Spray Operator Required: No Beliefs That Will Affect Care: None marital status: Single Current Living Situation: Spouse 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 Feels Safe at Home: Yes Assistive Devices: Denture - Upper, Denture - Lower and Walker Assistive Devices Comment: dentures at home Review of Systems Review of Systems: Constitutional: No fever, sweats or chills, +pale Eyes: No diplopia, no worsening or blurred vision ENT: normal hearing, no trouble swallowing Respiratory: No cough, sputum, dyspnea at rest or on exertion Cardiovascular: No chest pain, tightness or palpitations Abdomen: + bloating, distension, No pain, nausea, vomiting, diarrhea or constipation Musculoskeletal: No joint pain, calf pain, swelling Neurologic: + weakness, no numbness/tingling, or balance problems Psychiatric: No anxiety or depression Skin: No rash or itch, 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 + pallor and skin slightly jaundiced Head: Normocephalic, atraumatic ENT: PERRL, EOMI, + scleral icterus, no pharyngeal exudate, + edentulous, +mucous membranes dry Chest: Clear to auscultation, on room air, no adventitious breath sounds, + bilateral breast expanders in place, purple discoloration of the right breast s/p radiation treatment Cardiac: Regular rate and rhythm, no murmur, no JVD, normal peripheral pulses, good capillary refill Abdominal: NABS x 4 quadrants, + hard, +distended, no palpable fluid wave, nontender to palpation, no rebound or guarding Extremities: Normal inspection, +1 peripheral edema ankles bilaterally, no erythema, calfs nontender to palpation Psych: Normal mood and affect Neuro: AAO x 3, strength intact bilaterally and rated 5/5, no motor deficits, speech is clear, no peripheral sensory deficits Results & Data Results & Data ([facility]) Vital Signs (Past 12 Hours) Vital Signs Temp Pulse Pulse Resp BP BP Pulse Ox 02/06/22 11:00 90 18 120/73 97 02/06/22 10:39 02/06/22 10:39 02/06/22 09:42 36.4 C L 85 16 94/63 L 95 O2 Del Method 02/06/22 11:00 Room Air 02/06/22 10:39 Room Air 02/06/22 10:39 Room Air 02/06/22 09:42 Room Air Laboratory Results 02/06/22 10:35 Aerobic Blood Culture - Pending Blood Anaerobic Blood Culture - Pending 02/06/22 10:35 Aerobic Blood Culture - Pending Blood Anaerobic Blood Culture - Pending 02/06/22 02/06/22 02/06/22 12:24 12:24 12:11 WBC RBC Hgb Hct MCV MCH MCHC RDW Std Deviation RDW Coeff of Dmitry Plt Count MPV Immature Gran % (Auto) Neut % (Auto) Lymph % (Auto) Sheridan % (Auto) Eos % (Auto) Baso % (Auto) Neut # (Auto) Lymph # (Auto) Sheridan # (Auto) Eos # (Auto) Baso # (Auto) Immature Gran # (Auto) Absolute Nucleated RBC Nucleated RBC % (auto) Platelet Estimate Polychromasia Basophilic Stippling Anisocytosis Acanthocytes (Spur) Schistocytes Sodium Potassium Chloride Carbon Dioxide Anion Gap BUN Creatinine Est Cr Clr Drug Dosing Est GFR ( Amer) Est GFR (Non-Af Amer) BUN/Creatinine Ratio Glucose Lactate Calcium Magnesium Total Bilirubin AST ALT Alkaline Phosphatase Troponin I High Sens B-Natriuretic Peptide Total Protein Albumin Globulin Albumin/Globulin Ratio Lipase SARS-CoV-2, RNA, NAAT NEGATIVE Blood Type O Negative Blood Type Recheck O Negative Antibody Screen NEGATIVE Crossmatch See Detail 02/06/22 02/06/22 02/06/22 10:35 10:35 10:35 WBC RBC Hgb Hct MCV MCH MCHC RDW Std Deviation RDW Coeff of Dmitry Plt Count MPV Immature Gran % (Auto) Neut % (Auto) Lymph % (Auto) Sheridan % (Auto) Eos % (Auto) Baso % (Auto) Neut # (Auto) Lymph # (Auto) Sheridan # (Auto) Eos # (Auto) Baso # (Auto) Immature Gran # (Auto) Absolute Nucleated RBC Nucleated RBC % (auto) Platelet Estimate Polychromasia Basophilic Stippling Anisocytosis Acanthocytes (Spur) Schistocytes Sodium 132 L Potassium 3.3 L Chloride 102 Carbon Dioxide 25 Anion Gap 5 BUN 16 Creatinine 0.74 Est Cr Clr Drug Dosing 75.5 Est GFR ( Amer) 104.2 Est GFR (Non-Af Amer) 89.9 BUN/Creatinine Ratio 21.6 H Glucose 128 H Lactate 1.7 Calcium 8.1 L Magnesium 1.9 Total Bilirubin 3.6 H AST 253 H ALT 76 H Alkaline Phosphatase 440 H Troponin I High Sens 14.6 H B-Natriuretic Peptide 106 H Total Protein 6.8 Albumin 2.4 L Globulin 4.4 H Albumin/Globulin Ratio 0.5 L Lipase 57 SARS-CoV-2, RNA, NAAT Blood Type Blood Type Recheck Antibody Screen Crossmatch 02/06/22 10:35 WBC 8.01 RBC 1.86 L Hgb 5.7 L* Hct 18.6 L* MCV 100.0 MCH 30.6 MCHC 30.6 L RDW Std Deviation 85.5 H RDW Coeff of Dmitry 24.8 H Plt Count 94 L MPV 10.7 Immature Gran % (Auto) 2.9 Neut % (Auto) 59.9 Lymph % (Auto) 24.0 Sheridan % (Auto) 12.0 Eos % (Auto) 0.5 Baso % (Auto) 0.7 Neut # (Auto) 4.80 Lymph # (Auto) 1.92 Sheridan # (Auto) 0.96 H Eos # (Auto) 0.04 Baso # (Auto) 0.06 Immature Gran # (Auto) 0.23 H Absolute Nucleated RBC 1.18 H Nucleated RBC % (auto) 14.7 Platelet Estimate Decreased L Polychromasia 1+ Basophilic Stippling 1+ Anisocytosis Present Acanthocytes (Spur) 1+ Schistocytes 1+ Sodium Potassium Chloride Carbon Dioxide Anion Gap BUN Creatinine Est Cr Clr Drug Dosing Est GFR ( Amer) Est GFR (Non-Af Amer) BUN/Creatinine Ratio Glucose Lactate Calcium Magnesium Total Bilirubin AST ALT Alkaline Phosphatase Troponin I High Sens B-Natriuretic Peptide Total Protein Albumin Globulin Albumin/Globulin Ratio Lipase SARS-CoV-2, RNA, NAAT Blood Type Blood Type Recheck Antibody Screen Crossmatch Diagnostic Findings Chest X-Ray 02/06/22 10:20 XR chest 1V portable HISTORY: Dyspnea COMPARISON: Chest 09/10/2020. FINDINGS: No pneumothorax. Cardiac silhouette is top normal in size. No evidence for pulmonary edema. Bilateral tissue expanders are noted within the chest. This likely accounts for the hazy appearance of the lung bases. Otherwise, no focal lung consolidations to suggest pneumonia. Small left basilar linear densities favor subsegmental atelectasis. IMPRESSION: A few left basilar linear densities which favor subsegmental atelectasis. A pneumonia could also have a similar appearance in the appropriate clinical setting. ACT 112: Negative or not required by law. Electronically signed by: Sammy Fournier M.D. 02/06/2022 11:27 AM Abdomen/Pelvis CT 02/06/22 11:02 CT SCAN OF THE ABDOMEN AND PELVIS WITHOUT IV CONTRAST CLINICAL HISTORY: Abdominal distention. Lower abdominal pain. History of breast cancer. COMPARISON STUDY: No priors. TECHNIQUE: CT scan of the abdomen and pelvis is performed from the lung bases to the proximal femora. Images are reviewed in the axial, sagittal, and coronal planes. IV contrast was not administered for this examination. Note that the examination is suboptimal without oral and IV contrast. A dose lowering technique was utilized adhering to the principles of ALARA. CT DOSE: 323.79 mGy.cm FINDINGS: Lung bases: The heart is normal in size and without pericardial effusion. Interl obular septal thickening suggests fluid overload. Scarring/atelectasis is seen bilaterally and small pleural effusions are noted. Bilateral breast implants are partially imaged. Liver: The unenhanced liver is normal in size and heterogeneous in attenuation. There is nodularity of the hepatic surface contour which could represent cirrhosis versus pseudocirrhosis. There is no intrahepatic biliary ductal dilatation. Hepatic cysts measure up to 1.7 cm. Gallbladder: Gallstones are suspected. There is no CT evidence of acute cholecystitis. Spleen: Normal in size and attenuation. Pancreas: The unenhanced pancreas is grossly unremarkable. Adrenal glands: Unremarkable. Kidneys: The unenhanced kidneys are normal in size and without hydronephrosis. There is fullness of the renal collecting systems bilaterally. There are no renal calculi identified. There is no evidence of contour deforming renal mass lesion. Abdominal vasculature: The abdominal aorta is normal in course and caliber. Bowel: There is moderate colonic diverticulosis without CT evidence of acute diverticulitis. No bowel obstruction is seen. Question mild wall thickening throughout the colon. The appendix is not clearly visualized Peritoneum: There is a large volume of abdominopelvic ascites. No intraperitoneal free air is seen. Lymphadenopathy: None. Pelvic viscera: The bladder wall appears circumferentially thickened. The uterus and adnexa are normal as visualized. Skeletal structures: There is evidence of extensive/diffuse multifocal osteoblastic metastatic disease. Soft tissues: There is body wall edema. IMPRESSION: 1. Large volume of abdominopelvic ascites. 2. In addition to ascites, there are small pleural effusions, intralobular septal thickening at the lung bases, and anasarca of the body wall. These findings suggest fluid overload. 3. There is extensive/diffuse multifocal osteoblastic metastatic disease. 4. Question wall thickening of the colon, which is suboptimally assessed due to surrounding ascites. Clinical correlation will be required. 5. Cirrhotic liver morphology. This could represent cirrhosis versus pseudocirrhosis. No hepatic mass lesion is clearly seen on this unenhanced examination. 6. Suspect cholelithiasis. 7. Additional findings as above. ACT 112: Negative or not required by law. Electronically signed by: Nathanael Bergman M.D. 02/06/2022 12:01 PM Code Status & VTE Plan Code Status Full code - discussed with the patient at bedside Supervising Physician Co-Signing Physician Notes I have seen and examined the patient and have discussed the case with the provider above. I agree with the assessment and plan as stated with the following exceptions. The patient is a 57-year-old female with metastatic breast cancer presenting with worsening shortness of breath over the last couple of weeks. She was found to have significant anemia with a hemoglobin of 5.7 without any overt bleeding. Her last hemoglobin check was in December 2021 and H&H was 10.1/32.9 at that rachid e. Platelet count was 86. On 11/08/2021 H&H was 12/37.8 and platelet count was 137. She denies any chest pain and reports a fullness in her abdomen with evidence of ascites on imaging. On physical exam she is ill-appearing but in no acute distress. Hemodynamically she is stable. She is a small framed but well-nourished well-developed female. Tissue expanders are in breast area with some discoloration to the right breast area that is known. Patient reports tissue has been radiated. Lungs are clear to auscultation throughout. Cardiac exam is normal and there is no peripheral edema. Her abdomen is firm and soft with evidence of fluid. There is no significant tenderness to palpation. She is otherwise neurologically intact with no gross neuromuscular deficits. Skin is warm and dry. Initial work-up in the ER reveals H&H as above with a normal white count, platelet count of 94. Schistocytes are present on differential. INR is 1.3. Sodium is 132, potassium 3.3. Renal function is normal and so his glucose. Lactate is 1.7. Calcium is within normal limits. Liver panel has multiple abnormalities including a total bilirubin of 3.6, AST of 253, ALT 76, alk phos 440 most recent labs on are total bilirubin 1.1, AST 258, ALT 170, alkaline phos 346. There is no overt volume overload but there is ascites present. Urinalysis is normal. She underwent a paracentesis that did not reveal evidence of SBP. The serum ascites albumin gradient is 0.9 suggesting that portal hypertension is not necessarily the cause of ascites. Cytology is pending and will be processed in the morning as lab staff is out after 3 PM. Peripheral smear has been ordered. Imaging reveals ascites with small pleural effusions, interlobar septal thickening at the lung bases and anasarca of the body wall suggestive of fluid overload. There is extensive/diffuse multifocal osteoblastic metastatic disease. There is a questionable thickening of the colon that cannot be discerned. The liver has a cirrhotic morphology that could represent cirrhosis or pseudocirrhosis without any hepatic mass lesion clearly seen. Gallstones are suspected. Overall this is a 57-year-old female with known metastatic breast cancer with worsening ascites and symptomatic anemia without overt bleeding requiring transfusion. There is concern for extension of cancer and for possible worsening liver function given new jaundice, persistently elevated liver function studies and elevated bilirubin and INR. We will hold on any antibiotics at this point given no evidence of SBP, no overt variceal bleed, and no fever or other infectious symptoms. Appreciate GI evaluation and further work-up. Awaiting cytology on ascitic fluid. We will repeat CBC in a.m. after 2 units of blood given. She is at risk for additional volume overload with subsequent hypoxia. We will monitor this closely on telemetry. Lasix will be given in between blood units this evening and will monitor electrolytes and input/output. DO Milo (1) Hypertension Hypertension type: unspecified Qualified Code(s): I10 - Essential (primary) hypertension
--- NOTE | 2022-02-06 12:43 | Emergency Department Note ---
Impression & Plan Severe anemia, Abdominal ascites, Cirrhosis of liver, Elevated LFTs ED Provider Note INFORMANT: Patient and family ED PROVIDER(S): Sage Copeland MD CHIEF COMPLAINT: Shortness of breath PLAN: Disposition: Admitted Condition: Guarded Outpatient prescription management: none Referral: None MEDICAL DECISION MAKING: Patient present because of shortness of breath. Work-up was initiated. She did have findings of possible ascites on physical examination. She did not have any tenderness. She had atelectasis on chest x-ray. She does not have a significant cough or flulike symptoms to suggest pneumonia. The patient's CT scan showed a cirrhotic liver and ascites. Patient's blood work was very concerning as she has an elevation of LFTs. Patient also has a severe anemia with a hemoglobin of 5.7. We discussed this and patient consented to packed red blood cell transfusion. This was ordered in the ED. She will need further management in the hospital. [facility] Patient was evaluated in ER admitted for further management. Triage Nursing notes reviewed and agree them. Vital Signs: reviewed and remarkable for borderline blood pressure Differential diagnosis: Reactive airway disease, pneumonia, pneumothorax, COPD, CHF, infections, cardiac ischemia, pulmonary embolism, musculoskeletal, gastrointestinal, as well as other pathologies. Diagnostics interpreted by me: ECG: Twelve-lead ECG reveals normal sinus rhythm at 90 bpm. Low voltage QRS. Nonspecific ST. No ST elevation. No PVCs or PVCs. Cardiac Monitoring: Cardiac monitoring ordered by me: The patient was placed on continuous cardiac monitoring and observed. It revealed a normal sinus rhythm at 91 beats per minute without ectopy or evidence of dysrhythmia. Imaging studies: Chest x-ray and CT scan as noted below. HPI: The patient is a 57 year old female who presents to the Emergency Room with complaints of shortness of breath. This started several weeks ago and is progressive, much worse this week. The patient also notes the following associated symptoms, abdominal distention, generalized weakness, fatigue, occasional lower abdominal pain. The patient has found no relieving factors. Current pain is rated as 0/10. Patient states that she has a history of breast cancer. She has expanders in. She did have a chest x-ray done at the outpatient clinic last week and was called and was told that it was abnormal but does not know the details. Pt denies LOC, headache, fevers, chills, diaphoresis, visual changes, neck pain, chest pain, nausea, vomiting, back pain, melena, hematochezia, urinary symptoms, numbness, lymphadenopathy, rash, or other complaints. ROS: See above HPI for pertinent positives & negatives. A total of 10 systems reviewed and were otherwise negative. PAST MEDICAL HISTORY:See Below , breast cancer, anemia, abnormal LFTs PAST SURGICAL HISTORY:See Below, bilateral mastectomy FAMILY HISTORY:See Below SOCIAL HISTORY:See Below, non-smoker HOME MEDICATIONS:See Below ALLERGIES:See Below VITALS:See Below PHYSICAL EXAMINATION: GENERAL: Awake, alert, pale-appearing, in no distress HENT: Normocephalic, atraumatic. Oropharynx unremarkable. EYES: Pale conjunctiva. Sclera mildly-icteric. PERRLA. EOMI. NECK: Inspection normal. Non-tender. Supple. No nuchal rigidity. FROM. No m asses. RESPIRATORY: Clear to auscultation. No wheezes. No rales. Normal respiratory effort. CARDIAC: Normal rate. Normal rhythm. No murmurs. No rubs. Extremities warm and well perfused. Pulses equal. No JVD. GI: Soft, moderately-distended. Positive fluid wave. No tenderness to palpation. No rebound or guarding. No masses. RECTAL: Deferred. MUSCULOSKELETAL: Atraumatic. Chest examination reveals no tenderness. There is bilateral breast expanders in place. There is induration and redness noted to the right chest wall that the patient states is chronic since radiation treatment. The back is symmetrical on inspection without obvious abnormality. There is no CVA tenderness to palpation. No joint edema. LOWER EXTREMITIES: Calves are equal size bilaterally and non-tender. 2+ edema. No discoloration. NEURO: Normal sensorium. No sensory or motor deficits noted. SKIN: No rash or jaundice noted. Sage Copeland MD Past Med/Surg History Medical History (Updated 02/06/22 @ 12:39 by Pam Alba PA-C) Anxiety Bigeminy Breast cancer DX MAR 2020/SX/HX CHEMO (LAST CHEMO SEP 2020) , HX RADIATION (FEB 2021) Complication of chemotherapy HIGH BLOOD PRESSURE/ ? D/T STEROIDS Diverticular disease Family health problem AUNT HAD A HEART ATTACK AND THE MED GIVEN HAD A 1 IN A MILLION CHANCE OF REACTION. AUNT HAD REACTION AND DIDN'T MAKE IT. NO FURTHER DETAILS KNOWN. Heart problem heart function decreased Hypertension hx PVCs (premature ventricular contractions) Sleep apnea NOT DX - NO HX SLEEP STUDY...PLAN TO DO FOLLOWING THIS CARDIAC PROCEDURE Surgical History History of bilateral mastectomy WITH SPACERS History of colonoscopy WITH ENDOSCOPY History of surgery HX PORT AND SINCE REMOVED (LAST WEEK REMOVED / HEALING) History of tonsillectomy and adenoidectomy Family History Denies family history of COPD (chronic obstructive pulmonary disease) Social History Smoking Status: Never smoker Second Hand Exposure: No; Hx Alcohol Use: No Hx Substance Use: No Preferred Language: Austrian Communication Ability: Effective Freight Checker Required: No Beliefs That Will Affect Care: None and Christianity Christianity Beliefs: SABIANIST, RESTORATIONISM marital status: Single Current Living Situation: Spouse 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 Feels Safe at Home: Yes Assistive Devices: None Allergies Allergies Allergy/AdvReac Type Severity Reaction Status Date / Time Penicillins Allergy Unknown Turned blue Verified 06/17/21 11:27 egg AdvReac Unknown Gastrointestinal Verified 06/17/21 11:27 Upset Home Meds Home Medications Medication Instructions Recorded Confirmed buspirone 5 mg tablet 10 mg PO BID 06/08/20 02/06/22 anastrozole 1 mg tablet 1 mg PO QAM 06/17/21 02/06/22 citalopram 10 mg tablet (Celexa) 10 mg PO HS 06/17/21 02/06/22 famotidine 20 mg tablet 20 mg PO BID 06/17/21 02/06/22 metoprolol succinate 50 mg 25 mg PO DAILY 02/06/22 02/06/22 tablet,extended release 24 hr Results & Data (ED) Vital Signs Vital Signs - 24 hr 02/06/22 09:42 02/06/22 10:39 02/06/22 10:39 Temperature 36.4 C L Temperature Source Temporal Artery Scan Pulse Rate 85 Pulse Rate [Right Finger] Pulse Rhythm Regular Pulse Rhythm [Right Finger] Pulse Strength [Right Finger] Respiratory Rate 16 Respiratory Effort / Characteristics Non-Labored Spontaneous Respiratory Depth Normal Respiratory Pattern Blood Pressure 94/63 L Blood Pressure [Left Arm] Blood Pressure Mean 73 Blood Pressure Mean [Left Arm] Blood Pressure Position [Left Arm] Pulse Oximetry 95 Oxygen Delivery Method Room Air Room Air Room Air Sepsis Recent Fever Within 48 Hours No Sepsis New/Unexplained Change in Mental Status No Sepsis Action Taken by Nursing No Action Required 02/06/22 11:00 02/06/22 13:00 Temperature Temperature Source Pulse Rate Pulse Rate [Right Finger] 90 88 Pulse Rhythm Pulse Rhythm [Right Finger] Regular Regular Pulse Strength [Right Finger] Normal Normal Respiratory Rate 18 18 Respiratory Effort / Characteristics Non-Labored Non-Labored Respiratory Depth Normal Normal Respiratory Pattern Regular Regular Blood Pressure Blood Pressure [Left Arm] 120/73 118/67 Blood Pressure Mean Blood Pressure Mean [Left Arm] 88 84 Blood Pressure Position [Left Arm] Lying Lying Pulse Oximetry 97 96 Oxygen Delivery Method Room Air Room Air Sepsis Recent Fever Within 48 Hours Sepsis New/Unexplained Change in Mental Status Sepsis Action Taken by Nursing Laboratory Data Result diagrams: 02/06/22 10:35 02/06/22 10:35 Lab Results 02/06/22 02/06/22 02/06/22 Range/Units 10:35 10:35 10:35 WBC 8.01 (4.8-10.8) K/ul RBC 1.86 L (3.93-5.22) M/uL Hgb 5.7 L* (12.0-16.0) g/dl Hct 18.6 L* (34.1-44.9) % MCV 100.0 (80.0-100.0) fL MCH 30.6 (25.0-34.0) pg MCHC 30.6 L (32.0-36.0) g/dL RDW Std Deviation 85.5 H (36.4-46.3) fL RDW Coeff of Dmitry 24.8 H (11.5-14.5) % Plt Count 94 L (130-400) K/uL MPV 10.7 (9.4-12.3) fL Immature Gran % (Auto) 2.9 % Neut % (Auto) 59.9 % Lymph % (Auto) 24.0 % [place] % (Auto) 12.0 % Eos % (Auto) 0.5 % Baso % (Auto) 0.7 % Neut # (Auto) 4.80 (1.4-6.5) K/uL Lymph # (Auto) 1.92 (1.2-3.4) K/uL [place] # (Auto) 0.96 H (0.24-0.82) K/uL Eos # (Auto) 0.04 (0-0.50) K/uL Baso # (Auto) 0.06 (0-0.2) K/uL Immature Gran # (Auto) 0.23 H (0.00-0.02) K/uL Absolute Nucleated RBC 1.18 H (0-0) K/uL Nucleated RBC % (auto) 14.7 % Platelet Estimate Decreased L (Normal) Polychromasia 1+ Basophilic Stippling 1+ Anisocytosis Present Acanthocytes (Spur) 1+ Schistocytes 1+ PT (9.0-12.0) Seconds INR (0.9-1.1) Sodium 132 L (136-145) mmol/L Potassium 3.3 L (3.5-5.1) mmol/L Chloride 102 (98-107) mmol/L Carbon Dioxide 25 (21-32) mmol/L Anion Gap 5 (3-11) BUN 16 (6-23) mg/dl Creatinine 0.74 (0.6-1.2) mg/dl Est Cr Clr Drug Dosing 75.5 ml/min Est GFR ( Amer) 104.2 ml/min Est GFR (Non-Af Amer) 89.9 ml/min BUN/Creatinine Ratio 21.6 H (10-20) Glucose 128 H (70-99(Fasting)) mg/dl Lactate (0.4-2.0) mmol/L Calcium 8.1 L (8.5-10.1) mg/dl Magnesium 1.9 (1.7-2.4) mg/dl Total Bilirubin 3.6 H (0.2-1.0) mg/dl AST 253 H (13-39) U/L ALT 76 H (7-52) U/L Alkaline Phosphatase 440 H (34-104) U/L Troponin I High Sens 14.6 H (0-14) pg/ml B-Natriuretic Peptide 106 H (0-100) pg/ml Total Protein 6.8 (6.0-8.3) gm/dl Albumin 2.4 L (3.4-5.0) gm/dl Globulin 4.4 H (2.5-4.0) gm/dl Albumin/Globulin Ratio 0.5 L (0.9-2) Lipase 57 (11-82) U/L SARS-CoV-2, RNA, NAAT (NEGATIVE) Blood Type Blood Type Recheck Antibody Screen Crossmatch 02/06/22 02/06/22 02/06/22 Range/Units 10:35 10:35 12:11 WBC (4.8-10.8) K/ul RBC (3.93-5.22) M/uL Hgb (12.0-16.0) g/dl Hct (34.1-44.9) % MCV (80.0-100.0) fL MCH (25.0-34.0) pg MCHC (32.0-36.0) g/dL RDW Std Deviation (36.4-46.3) fL RDW Coeff of Dmitry (11.5-14.5) % Plt Count (130-400) K/uL MPV (9.4-12.3) fL Immature Gran % (Auto) % Neut % (Auto) % Lymph % (Auto) % [place] % (Auto) % Eos % (Auto) % Baso % (Auto) % Neut # (Auto) (1.4-6.5) K/uL Lymph # (Auto) (1.2-3.4) K/uL [place] # (Auto) (0.24-0.82) K/uL Eos # (Auto) (0-0.50) K/uL Baso # (Auto) (0-0.2) K/uL Immature Gran # (Auto) (0.00-0.02) K/uL Absolute Nucleated RBC (0-0) K/uL Nucleated RBC % (auto) % Platelet Estimate (Normal) Polychromasia Basophilic Stippling Anisocytosis Acanthocytes (Spur) Schistocytes PT 14.0 H (9.0-12.0) Seconds INR 1.3 H (0.9-1.1) Sodium (136-145) mmol/L Potassium (3.5-5.1) mmol/L Chloride (98-107) mmol/L Carbon Dioxide (21-32) mmol/L Anion Gap (3-11) BUN (6-23) mg/dl Creatinine (0.6-1.2) mg/dl Est Cr Clr Drug Dosing ml/min Est GFR ( Amer) ml/min Est GFR (Non-Af Amer) ml/min BUN/Creatinine Ratio (10-20) Glucose (70-99(Fasting)) mg/dl Lactate 1.7 (0.4-2.0) mmol/L Calcium (8.5-10.1) mg/dl Magnesium (1.7-2.4) mg/dl Total Bilirubin (0.2-1.0) mg/dl AST (13-39) U/L ALT (7-52) U/L Alkaline Phosphatase (34-104) U/L Troponin I High Sens (0-14) pg/ml B-Natriuretic Peptide (0-100) pg/ml Total Protein (6.0-8.3) gm/dl Albumin (3.4-5.0) gm/dl Globulin (2.5-4.0) gm/dl Albumin/Globulin Ratio (0.9-2) Lipase (11-82) U/L SARS-CoV-2, RNA, NAAT (NEGATIVE) Blood Type O Negative Blood Type Recheck Antibody Screen NEGATIVE Crossmatch See Detail 02/06/22 02/06/22 Range/Units 12:24 12:24 WBC (4.8-10.8) K/ul RBC (3.93-5.22) M/uL Hgb (12.0-16.0) g/dl Hct (34.1-44.9) % MCV (80.0-100.0) fL MCH (25.0-34.0) pg MCHC (32.0-36.0) g/dL RDW Std Deviation (36.4-46.3) fL RDW Coeff of Dmitry (11.5-14.5) % Plt Count (130-400) K/uL MPV (9.4-12.3) fL Immature Gran % (Auto) % Neut % (Auto) % Lymph % (Auto) % [place] % (Auto) % Eos % (Auto) % Baso % (Auto) % Neut # (Auto) (1.4-6.5) K/uL Lymph # (Auto) (1.2-3.4) K/uL [place] # (Auto) (0.24-0.82) K/uL Eos # (Auto) (0-0.50) K/uL Baso # (Auto) (0-0.2) K/uL Immature Gran # (Auto) (0.00-0.02) K/uL Absolute Nucleated RBC (0-0) K/uL Nucleated RBC % (auto) % Platelet Estimate (Normal) Polychromasia Basophilic Stippling Anisocytosis Acanthocytes (Spur) Schistocytes PT (9.0-12.0) Seconds INR (0.9-1.1) Sodium (136-145) mmol/L Potassium (3.5-5.1) mmol/L Chloride (98-107) mmol/L Carbon Dioxide (21-32) mmol/L Anion Gap (3-11) BUN (6-23) mg/dl Creatinine (0.6-1.2) mg/dl Est Cr Clr Drug Dosing ml/min Est GFR ( Amer) ml/min Est GFR (Non-Af Amer) ml/min BUN/Creatinine Ratio (10-20) Glucose (70-99(Fasting)) mg/dl Lactate (0.4-2.0) mmol/L Calcium (8.5-10.1) mg/dl Magnesium (1.7-2.4) mg/dl Total Bilirubin (0.2-1.0) mg/dl AST (13-39) U/L ALT (7-52) U/L Alkaline Phosphatase (34-104) U/L Troponin I High Sens (0-14) pg/ml B-Natriuretic Peptide (0-100) pg/ml Total Protein (6.0-8.3) gm/dl Albumin (3.4-5.0) gm/dl Globulin (2.5-4.0) gm/dl Albumin/Globulin Ratio (0.9-2) Lipase (11-82) U/L SARS-CoV-2, RNA, NAAT NEGATIVE (NEGATIVE) Blood Type Blood Type Recheck O Negative Antibody Screen Crossmatch Administered Medications Discontinued Medications Furosemide (Furosemide 40 Mg/4 Ml Vial) 40 mg IV ONE ONE Stop: 02/06/22 14:01 Last Admin: 02/06/22 14:34 Dose: 40 mg Documented By: AP Sodium Chloride (Nss) 500 mls @ 999 mls/hr IV .Q31M STA Stop: 02/06/22 10:50 Last Infusion: 02/06/22 11:25 Dose: 0 mls/hr Documented By: Admin: 02/06/22 10:51 Dose: 999 mls/hr Documented By: AP Sodium Chloride (Nss 1000ml) 1,000 mls @ 125 mls/hr IV .Q8H DANUTA Stop: 03/08/22 10:29 Last Admin: 02/06/22 12:40 Dose: 125 mls/hr Documented By: AP Potassium Chloride (Potassium Chloride Crtab 20 Meq Tabcr) 20 meq PO NOW STA Stop: 02/06/22 14:02 Last Admin: 02/06/22 14:34 Dose: 20 meq Documented By: AP Imaging Data Radiologist's Impression: Chest X-Ray 02/06/22 10:20 XR chest 1V portable HISTORY: Dyspnea COMPARISON: Chest 09/10/2020. FINDINGS: No pneumothorax. Cardiac silhouette is top normal in size. No evidence for pulmonary edema. Bilateral tissue expanders are noted within the chest. This likely accounts for the hazy appearance of the lung bases. Otherwise, no focal lung consolidations to suggest pneumonia. Small left basilar linear densities favor subsegmental atelectasis. IMPRESSION: A few left basilar linear densities which favor subsegmental atelectasis. A pneumonia could also have a similar appearance in the appropriate clinical setting. ACT 112: Negative or not required by law. Electronically signed by: Sammy Fournier M.D. 02/06/2022 11:27 AM Abdomen/Pelvis CT 02/06/22 11:02 CT SCAN OF THE ABDOMEN AND PELVIS WITHOUT IV CONTRAST CLINICAL HISTORY: Abdominal distention. Lower abdominal pain. History of breast cancer. COMPARISON STUDY: No priors. TECHNIQUE: CT scan of the abdomen and pelvis is performed from the lung bases to the proximal femora. Images are reviewed in the axial, sagittal, and coronal planes. IV contrast was not administered for this examination. Note that the examination is suboptimal without oral and IV contrast. A dose lowering technique was utilized adhering to the principles of ALARA. CT DOSE: 323.79 mGy.cm FINDINGS: Lung bases: The heart is normal in size and without pericardial effusion. Interlobular septal thickening suggests fluid overload. Scarring/atelectasis is seen bilaterally and small pleural effusions are noted. Bilateral breast implants are partially imaged. Liver: The unenhanced liver is normal in size and heterogeneous in attenuation. There is nodularity of the hepatic surface contour which could represent cirrho sis versus pseudocirrhosis. There is no intrahepatic biliary ductal dilatation. Hepatic cysts measure up to 1.7 cm. Gallbladder: Gallstones are suspected. There is no CT evidence of acute cholecystitis. Spleen: Normal in size and attenuation. Pancreas: The unenhanced pancreas is grossly unremarkable. Adrenal glands: Unremarkable. Kidneys: The unenhanced kidneys are normal in size and without hydronephrosis. There is fullness of the renal collecting systems bilaterally. There are no renal calculi identified. There is no evidence of contour deforming renal mass lesion. Abdominal vasculature: The abdominal aorta is normal in course and caliber. Bowel: There is moderate colonic diverticulosis without CT evidence of acute diverticulitis. No bowel obstruction is seen. Question mild wall thickening throughout the colon. The appendix is not clearly visualized Peritoneum: There is a large volume of abdominopelvic ascites. No intraperitoneal free air is seen. Lymphadenopathy: None. Pelvic viscera: The bladder wall appears circumferentially thickened. The uterus and adnexa are normal as visualized. Skeletal structures: There is evidence of extensive/diffuse multifocal osteoblastic metastatic disease. Soft tissues: There is body wall edema. IMPRESSION: 1. Large volume of abdominopelvic ascites. 2. In addition to ascites, there are small pleural effusions, intralobular septal thickening at the lung bases, and anasarca of the body wall. These findings suggest fluid overload. 3. There is extensive/diffuse multifocal osteoblastic metastatic disease. 4. Question wall thickening of the colon, which is suboptimally assessed due to surrounding ascites. Clinical correlation will be required. 5. Cirrhotic liver morphology. This could represent cirrhosis versus pseudocirrhosis. No hepatic mass lesion is clearly seen on this unenhanced examination. 6. Suspect cholelithiasis. 7. Additional findings as above. ACT 112: Negative or not required by law. Electronically signed by: Nathanael Bergman M.D. 02/06/2022 12:01 PM Discharge Plan Visit Data Chief Complaint: Shortness of Breath/Dyspnea Stated Complaint: SOB, NO APPETITE, STOMACH IS HARD ED Provider: Sage Copeland Discharge Problem: Severe anemia, Abdominal ascites, Cirrhosis of liver, Elevated LFTs Patient Disposition: Admitted As Inpatient Discharge Instructions Interventions: ED Discharge Assessment Last Done: 02/06/22 15:36
[2022-02-06 12:48] LABS: Acanthocytes 1+; Anisocytosis Present; Basophilic Stippling 1+; Basophils # (auto) 0.06 K/uL (0-0.2); Basophils % (auto) 0.7 %; Eosinophils # (auto) 0.04 K/uL (0-0.50); Eosinophils % (auto) 0.5 %; Immature Granulocytes # (auto) 0.23 K/uL (0.00-0.02); Immature Granulocytes % (auto) 2.9 %; Lymphocytes # (auto) 1.92 K/uL (1.2-3.4); Monocytes # (auto) 0.96 K/uL (0.24-0.82); Neutrophils % (auto) 59.9 %; Platelet Estimate Decreased (Normal); Polychromasia 1+; Schistocytes 1+
[2022-02-06] MEDS ORDERED: FUROSEMIDE 40 MG/4 ML VIAL IV ONE (14:00)
[2022-02-06] MEDS ORDERED: POTASSIUM CHLORIDE CRTAB 20 MEQ TABCR PO STA (14:01)
[2022-02-06] MEDS ORDERED: ONDANSETRON INJ 2 MG/ML 2 ML VIAL IV PRN (15:37)
[2022-02-06] MEDS ORDERED: ACETAMINOPHEN 325 MG TAB PO PRN (15:37)
[2022-02-06 15:38] LABS: INR 1.3 (0.9-1.1)
[2022-02-06 16:28] LABS: Appearance Urine Clear (Clear); Bilirubin Urine Negative (Negative); Blood Urine Negative (Negative); Color Urine Yellow; Glucose Urine UA Negative (Negative); Ketones Urine Negative (Negative); Leukocyte Esterase Urine Negative (Negative); Nitrite Urine Negative (Negative); Protein Urine Negative (Negative); Specific Gravity Urine 1.006 (1.000-1.030); Urobilinogen Urine Negative (Negative)
--- NOTE | 2022-02-06 16:44 | Ultrasound Report ---
ULTRASOUND GUIDED DIAGNOSTIC AND THERAPEUTIC PARACENTESIS CLINICAL HISTORY: Ascites. COMPARISON STUDY: CT of the abdomen and pelvis February 06, 2022. PROCEDURE: The risks, benefits, and alternatives to the procedure were discussed with the patient inc luding the risk of bleeding, infection and injury to adjacent structures. The patient agreed to the procedure and informed written consent was obtained. Following real-time ultrasound localization, the skin of the left lower quadrant was prepped and draped. Following local anesthesia with Xylocaine, t he sheath paracentesis needle was inserted and approximately 1.5 liters of straw-colored fluid was re moved by vacuum suction. The patient tolerated the procedure well and no immediate complications were evident. IMPRESSION: Ultrasound-guided paracentesis with removal of 1.5 liters of ascites. 1 L of ascites was sent to the laboratory for analysis as ordered. ACT 112: Negative or not required by law. Electronically signed by: Esequiel Scott M.D. 02/06/2022 4:42 PM
--- NOTE | 2022-02-06 16:51 | Gastrointestinal Consultation ---
Date of Consultation February 06, 2022 Assessment & Plan (1) Anemia: Plan REview of her epic chart was done including her egd/colon from 08/2019, Dr. Lord's outpatient hepatology note from 01/10 and a bit of her heme/onc work-up thus far. Supervising Physician Co-Signing Physician Notes Anemia - receiving blood, not likely a variceal bleed as last egd in 2019 without varices and outpatient CT in 07/10 with oral/iv contrast showing a non- cirrhotic liver. Etiology is unclear but appears she may be mildly symptomatic from her anemia and or ascites. Long standing elevation in lf's- ? from medications related to breast cancer treatment, ? component of chf, was planning to have an outpatient egd/eus-lb this upcoming sun which likely we will still plan for Ascites - s/p diagnostic paracentesis, cytology pending, will check saag and also for sbp. She may have sips of liquid for now. History of Present Illness Reason for Consultation: Ascites Requesting Physician: Pam Stovall Attending Physician: Shae Pedraza, History of Present Illness 57 yo fm with a history of metastatic breast cancer with elevated lft's noted as an outpatient for the past few months. Seen in 01/10 by [facility] hepatology for elevated lft's - ? anastrozole. Noted on CT from 07/10 to have a normal appearing liver, large volume ascites. Admitted now thru the ed and noted to be anemic without bun rise and no reports of overt bleeding - no hematemesis/ no hematochezia. Has had mild sob for the past few days which is part of the reason for her coming in - ? from ascites +/- chf +/- anemia. She is stable in the ed hemodnyamically currently, receiving a blood transfusion. Denies any recent ethanol use, recent sick contacts. She had covid twice in 2019 for which she came in to the hospital. No other acute complaints. No recent abdominal trauma. Pmhx:Metastatic breast cancer with ascites noted on outpt imaging, chf Medications: buspar, celexa, pepcid, toprol All: pcn, eggd Soc hx:lives with her , denies ethanol use. Allergies Allergy/AdvReac Type Severity Reaction Status Date / Time Penicillins Allergy Unknown Turned blue Verified 06/17/21 11:27 egg AdvReac Unknown Gastrointestinal Verified 06/17/21 11:27 Upset Home Medications Medication Instructions Recorded Confirmed Type buspirone 5 mg tablet 10 mg PO BID 06/08/20 02/06/22 History anastrozole 1 mg tablet 1 mg PO QAM 06/17/21 02/06/22 History citalopram 10 mg tablet (Celexa) 10 mg PO HS 06/17/21 02/06/22 History famotidine 20 mg tablet 20 mg PO BID 06/17/21 02/06/22 History metoprolol succinate 50 mg 25 mg PO DAILY 02/06/22 02/06/22 History tablet,extended release 24 hr Patient History Medical History (Updated 02/06/22 @ 16:51 by Irene Garza MD) Anxiety Bigeminy Breast cancer DX MAR 2020/SX/HX CHEMO (LAST CHEMO SEP 2020) , HX RADIATION (FEB 2021) Complication of chemotherapy HIGH BLOOD PRESSURE/ ? D/T STEROIDS Diverticular disease Family health problem AUNT HAD A HEART ATTACK AND THE MED GIVEN HAD A 1 IN A MILLION CHANCE OF REACTION. AUNT HAD REACTION AND DIDN'T MAKE IT. NO FURTHER DETAILS KNOWN. Heart problem heart function decreased Hypertension hx PVCs (premature ventricular contractions) Sleep apnea NOT DX - NO HX SLEEP STUDY...PLAN TO DO FOLLOWING THIS CARDIAC PROCEDURE Surgical History History of bilateral mastectomy WITH SPACERS History of colonoscopy WITH ENDOSCOPY History of surgery HX PORT AND SINCE REMOVED (LAST WEEK REMOVED / HEALING) History of tonsillectomy and adenoidectomy Family History Denies family history of COPD (chronic obstructive pulmonary disease) Social History Smoking Status: Never smoker Second Hand Exposure: No; Hx Alcohol Use: No Hx Substance Use: No Preferred Language: Maltese Communication Ability: Effective Social Media Job Titles Required: No Beliefs That Will Affect Care: None and Sikhism Sikhism Beliefs: SCIENTOLOGY, HOLINESS marital status: Single Current Living Situation: Spouse 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 Feels Safe at Home: Yes Assistive Devices: None Physical Exam Physical Exam: Well developed fm in nad Eyes: perrla Respiratory: Clear to auscultation bilaterally Cardiovascular: RRR Gastrointestinal (Abdomen): ascitic fluid mild, left sided tap site with dressing on Neurologic: PERRL, EOMI, accommodation nl, no face palsy, no dysarthria Results & Data ([facility]) Vital Signs (Past 12 Hours) Vital Signs Temp Pulse Pulse Resp BP BP Pulse Ox 02/06/22 16:35 36.6 C 94 H 18 123/76 98 02/06/22 16:20 36.8 C 89 18 125/82 97 02/06/22 15:30 36.8 C 85 20 132/76 98 02/06/22 13:00 88 18 118/67 96 02/06/22 14:00 36.7 C 91 H 16 118/67 93 02/06/22 13:45 36.5 C 88 16 117/69 93 02/06/22 13:26 36.8 C 91 H 116/68 97 02/06/22 11:00 90 18 120/73 97 02/06/22 10:39 02/06/22 10:39 02/06/22 09:42 36.4 C L 85 16 94/63 L 95 O2 Del Method O2 Flow Rate 02/06/22 16:35 0 02/06/22 16:20 0 02/06/22 15:30 02/06/22 13:00 Room Air 02/06/22 14:00 0 02/06/22 13:45 0 02/06/22 13:26 0 02/06/22 11:00 Room Air 02/06/22 10:39 Room Air 02/06/22 10:39 Room Air 02/06/22 09:42 Room Air Laboratory Results Hgb 5.7/hct 17 Normal bun Diagnostic Findings CT with oral contrast showing ? cirrhotic appearing liver
[2022-02-06 17:18] LABS: Appearance Peritoneal Fluid Slightly Hazy; Color Peritoneal Fluid Yellow; Lymphocytes, Fluid 11 %; Mono,Macrophage,Mesothelial 79 %; Neutrophils, Fluid 10 %; RBC Peritoneal Fluid Auto 2000 /uL; WBC Peritoneal Fluid Auto 410 /ul (0-300)
[2022-02-06 17:19] LABS: Albumin Peritoneal Fluid < 1.5 gm/dl; Glucose Peritoneal Fluid 111 mg/dl; LDH Peritoneal Fluid 119 U/L; Total Protein Peritoneal Fluid < 3.0 gm/dl
[2022-02-06] MEDS: busPIRone 5 MG TAB PO SCH (20:52)
[2022-02-06] MEDS: FAMOTIDINE 20 MG TAB PO SCH (20:54)
[2022-02-06] MEDS ORDERED: CITALOPRAM 20 MG TAB PO SCH (21:00)
[2022-02-06] MEDS ORDERED: METOPROLOL SUCC 25MG EXT REL TAB PO SCH (21:00)
[2022-02-07] MEDS: busPIRone 5 MG TAB PO SCH (08:05)
[2022-02-07] MEDS: FAMOTIDINE 20 MG TAB PO SCH (08:05)
[2022-02-07 08:31] LABS: Hematocrit (blood only) 24.5 % (34.1-44.9); Hemoglobin 8.1 g/dl (12.0-16.0); Mean Corpuscular Hemoglobin 30.3 pg (25.0-34.0); Mean Corpuscular Hgb Conc 33.1 g/dL (32.0-36.0); Mean Corpuscular Volume 91.8 fL (80.0-100.0); Mean Platelet Volume 10.7 fL (9.4-12.3); Nucleated RBC % (auto) 16.9 %; Platelet Count 71 K/uL (130-400); RDW Coefficient of Variation 22.5 % (11.5-14.5); RDW Standard Deviation 66.4 fL (36.4-46.3); Red Blood Count 2.67 M/uL (3.93-5.22); White Blood Count 7.69 K/ul (4.8-10.8)
[2022-02-07] MEDS ORDERED: METOPROLOL SUCC 25MG EXT REL TAB PO SCH (09:00)
[2022-02-07] MEDS ORDERED: ANASTROZOLE 1 MG TAB PO SCH (09:00)
[2022-02-07] MEDS ORDERED: CIPROFLOXACIN 500 MG TAB PO SCH (09:00)
[2022-02-07 10:05] LABS: Albumin Level 2.2 gm/dl (3.4-5.0); BUN Creatinine Ratio 23.4 (10-20); Bilirubin Direct 2.2 mg/dl (0-0.2); Bilirubin,Total 4.4 mg/dl (0.2-1.0); Calcium 7.5 mg/dl (8.5-10.1); Creatinine Clr Calc Pharmacy 72.5 ml/min; Est GFR (African American) 99.3 ml/min; Est GFR (Non-African American) 85.7 ml/min; Magnesium 1.7 mg/dl (1.7-2.4); Potassium 3.5 mmol/L (3.5-5.1); Total Protein 6.2 gm/dl (6.0-8.3)
[2022-02-07] MEDS ORDERED: ADVANCED PROBIOTIC 1250 MG CAPSULE PO SCH (11:15)
--- NOTE | 2022-02-07 11:17 | Gastroenterology Progress Note ---
Date of Service February 07, 2022 Assessment & Plan (1) Anemia: (2) Chronic systolic CHF (congestive heart failure): (3) Ascites: Plan Low SAAG and high ascitic fluid protein suggestion of ascites source other than liver cirrhosis. Will empirically tx for SBP w Cipro 500mg BID x 10 days. 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 Spoke with Dr. Arce making him aware of pt w anemia, post transfusion, new ascites. He reviewed and would like to go forward with the EGD, EUS with liver biopsy as scheduled tomorrow at [facility]. Okay for discharge from a GI standpoint. Admission and Anticipated Discharge Date Admission Date: February 06, 2022 Supervising Physician Co-Signing Physician Notes I have seen and discussed the management with VIRGIE Mensah. Admitted for shortness of breath and found to be anemic without over bleeding. Responded to blood transfusion overnite with hgb 5 to 8. She was also noted to have ascites s/p 1.5 liter tap with findings of ? sbp - starting treatment with cipro bid for 10 days. SAAG and total protein not consistent with liver source for ascites - high total protein ? heart source. Cytology is pending from paracentesis yesterday. She is also noted to be cirrhotic per ct imaging at [facility] but not per [facility] outpatient imaging - ct with contrast earlier in 2021. Pertinent pmx of of metastatic breast cancer with elevated lft's that are thought to be ? from medications related to breast cancer treatment and there was an outpatient plan for egd/eus-lb tomorrow. She is feeling much better today, abdomen is soft. Given she has improved in terms of her sob and belly distension, in addition to her anemia improving with blood transfusion and there has been no overt bleeding while here, it is ok from a gi perspective to dc home with plans for [facility] further work-up of her elevated lft's. Subjective 57 yr old w metastatic breast cancer, w stable mild elevated LFTs, admitted for anemia and new ascites. Recent imaging suggestive of cirrhosis. Hemoglobin 5.7 on arrival, received 2 units of RBCs, hemoglobin today 8.1, BUN has been normal. No gross GI bleeding. With 410 WBCs, 10% neutrophils. Today, patient is comfortable, reports being still a little weak but much improved compared to prior to the blood transfusions. Interested in discharge. Has outpatient EGD EUS with liver biopsy scheduled for tomorrow at [facility]. Review of Systems Review of Systems: ROS: Gen: + weakness, no fevers Eyes: No eye redness, or pain, no recent vision changes Resp: No SOB, no cough Cardio: No palpitations/irregular beats, no chest pain GI: No abdominal pain, no nausea/vomiting : Denies pain on urination Skin: No jaundice, itching or new rashes Physical Exam Constitutional: well developed, + well hydrated and + thin; no acute distress Eyes: PERRL, conjunctivae normal, anicteric sclerae ENMT: external ear and nose normal, oropharynx normal Neck: trachea midline, no thyromegaly Respiratory: normal respiratory effort, lungs clear to auscultation Cardiovascular: RRR, no murmur, no edema Gastrointestinal (Abdomen): Soft, non tender, mild ascites. Skin: no rashes, warm and dry Neurologic: PERRL, EOMI, accommodation nl, no face palsy, no dysarthria Psychiatric: A+Ox3, euthymic affect Lymphatic: no cervical or axillary lymphadenopathy Results & Data ([facility]) Vital Signs (Past 12 Hours) Vital Signs Temp Pulse Pulse Resp BP Pulse Ox O2 Del Method 02/07/22 08:10 36.6 C 76 18 113/70 96 Room Air 02/07/22 07:16 85 02/07/22 04:43 36.6 C 92 H 18 99/63 L 98 Nasal Cannula 02/07/22 00:28 88 18 106/66 94 Nasal Cannula 02/06/22 23:44 36.5 C 92 H 20 92/58 L 92 Room Air O2 Flow Rate 02/07/22 08:10 02/07/22 07:16 02/07/22 04:43 2 02/07/22 00:28 2 02/06/22 23:44 Laboratory Results T bili 2.2, AST 226, ALT 6 6, alkaline phosphatase 462 WBC 7, Hb 8.1, HCT 34.5, PLT S 71, NA 132, K3.5, CL 103, CO2 26, BUN 18, CR 0.7, glucose 93 INR is 1.3 Ascitic fluid analysis: 410 white blood cells, 2000 RBCs, 10% neutrophils. SAAG 0.7, Ascitic fluid total protein <3. Diagnostic Findings US guided paracentesis: Ultrasound-guided paracentesis with removal of 1.5 liters of ascites. 1 L of ascites was sent to the laboratory for analysis as ordered.
--- NOTE | 2022-02-07 14:41 | Hospitalist Progress Note ---
Date of Service February 07, 2022 Assessment & Plan (1) Anemia: (2) Ascites: (3) Breast cancer: (4) Elevated transaminase level: (5) Generalized weakness: (6) Chronic systolic CHF (congestive heart failure): (7) Hypertension: Plan: 57 yo F with PMHx of invasive lobular carcinoma, right breast, originally diagnosed 04/07/19 21, ER positive, [place] positive, HER2/almaz negative. Metastasis to axillary lymph node and extensive osseous metastasis. S/p chemotherapy with Paclitaxol x12 weeks (April 2020-September 2020) and maintained on anastrosole since Nov 2020. S/p radiation treatment. S/p bilateral total mastectomy in November 2020, immediately had bilateral reconstruction with placement of expanders. Other PMHx includes chronic systolic heart failure, HTN, anemia ventricular bigeminy. She was seen by her PCP on 02/01/22 due to shortness of breath, dyspnea on exertion and worsening fatigue which has been going on for about 1.5 weeks. Presents to ER today with worsening dyspnea on exertion and weakness. - Admit to med surg with tele - Pt remains on anastrozole daily for hx of breast cancer. Follows with Dr. Lambert as outpatient. - Abdominal paracentesis ordered - discussed with radiology, will try to get it done today, obtain cytology, attempt removal of 4-5 L. - New cirrhosis seen on CT abdomen - does not drink alcohol and not on medications that would cause such. - Liver enzyme elevation is chronic since August s/p Zometa infusion for osseous metastasis from breast cancer, following with outpatient hepatology, scheduled biopsy of the liver was outpatient for 02/08/22. Will attempt to do inpatient here but Hgb/Hct 5.7/18.6 so requires transfusion first. 2 units PRBCs ordered, give lasix 40 IV inbetween units, place stearns catheter for strict i/os, trend LFTs - GI consulted for liver biopsy - possibly tomorrow? Will require hepatology follow up - Hypokalemia, will replace with po potassium, allow diet - Imaging of CXR reviewed, does not appear to have fluid overload in lungs. Shortness of breath is more likely due to anemia and ascites - Consider antibiotics after paracentesis for SBP prophylaxis, also consider with hx of new found cirrhosis the possibility of esophageal varices. Pt denies any overt bleeding. - Bedside toilet due to shortness of breath - PT/OT consults - Continue supportive care DVT ppx: - Teds, scds, no chemical anticoagulation in the setting of paracentesis today CODE: FULL Dispo: From home, lives with Ron, likely to remain in the hospital x 1-2 days. Admission and Anticipated Discharge Date Admission Date: February 06, 2022 Results & Data Results & Data ([facility]) Vital Signs (Past 12 Hours) Vital Signs Temp Pulse Pulse Resp BP Pulse Ox O2 Del Method 02/07/22 12:00 37.1 C 82 18 109/70 93 Room Air 02/07/22 08:10 36.6 C 76 18 113/70 96 Room Air 02/07/22 07:16 85 02/07/22 04:43 36.6 C 92 H 18 99/63 L 98 Nasal Cannula O2 Flow Rate 02/07/22 12:00 02/07/22 08:10 02/07/22 07:16 02/07/22 04:43 2 Laboratory Results Short CBC 02/07/22 Range/Units 07:49 WBC 7.69 (4.8-10.8) K/ul Hgb 8.1 L (12.0-16.0) g/dl Hct 24.5 L (34.1-44.9) % Plt Count 71 L (130-400) K/uL BMP 02/07/22 07:49 Sodium 132 L Potassium 3.5 Chloride 103 Carbon Dioxide 26 BUN 18 Creatinine 0.77 Glucose 93 Calcium 7.5 L Liver Function 02/07/22 Range/Units 07:49 Total Bilirubin 4.4 H (0.2-1.0) mg/dl Direct Bilirubin 2.2 H (0-0.2) mg/dl AST 226 H (13-39) U/L ALT 66 H (7-52) U/L Alkaline Phosphatase 462 H (34-104) U/L Albumin 2.2 L (3.4-5.0) gm/dl Urine 02/06/22 Range/Units 16:10 Urine Color Yellow Urine Appearance Clear (Clear) Urine pH 5.0 (4.5-7.5) Ur Specific [place] 1.006 (1.000-1.030) Urine Protein Negative (Negative) Urine Glucose (UA) Negative (Negative) Medications Administered Current Inpatient Medications Acetaminophen (Acetaminophen 325 Mg Tab) 650 mg PO Q4H PRN PRN Reason: Moderate Pain Stop: 03/08/22 15:36 Anastrozole (Anastrozole 1 Mg Tab) 1 mg PO QAM [facility] Stop: 03/09/22 08:59 Last Admin: 02/07/22 08:06 Dose: 1 mg Buspirone HCl (Buspirone 5 Mg Tab) 10 mg PO BID [facility] Stop: 03/08/22 20:59 Last Admin: 02/07/22 08:05 Dose: 10 mg Ciprofloxacin (Ciprofloxacin 500 Mg Tab) 500 mg PO BID [facility] Stop: 02/17/22 08:59 Last Admin: 02/07/22 10:08 Dose: 500 mg Citalopram Hydrobromide (Citalopram 20 Mg Tab) 10 mg PO HS [facility] Stop: 03/08/22 20:59 Last Admin: 02/06/22 20:53 Dose: 10 mg Famotidine (Famotidine 20 Mg Tab) 20 mg PO BID [facility] Stop: 03/08/22 20:59 Last Admin: 02/07/22 08:05 Dose: 20 mg Lactobacillus Acidophilus (Advanced Probiotic 1250 Mg Capsule) 2 cap PO DAILY [facility] Stop: 03/09/22 11:14 Last Admin: 02/07/22 11:51 Dose: 2 cap Metoprolol Succinate (Metoprolol Succ 25mg Ext Rel Tab) 25 mg PO HS [facility] Stop: 03/08/22 20:59 Last Admin: 02/06/22 20:54 Dose: 25 mg Ondansetron HCl (Ondansetron Inj 2 Mg/Ml 2 Ml Vial) 4 mg IV Q4H PRN PRN Reason: Nausea And Vomiting Stop: 03/08/22 15:36 (1) Hypertension Hypertension type: unspecified Qualified Code(s): I10 - Essential (primary) hypertension
--- NOTE | 2022-02-07 19:24 | Discharge Summary ---
Discharge Summary Date of Service February 07, 2022 Notes For Next Care Provider Medication Changes From Visit NEW Cipro 500mg PO BID x 10 days NEW Lactobacillus probiotic Admission HPI Per Admitting Provider This is a 57-year-old female with PMHx of invasive lobular carcinoma, right breast, originally diagnosed 04/07/19 21, ER positive, ID positive, HER2/almaz negative. Metastasis to axillary lymph node and extensive osseous metastasis. Status post chemotherapy with Paclitaxol x12 weeks (April 2020-September 2020) and maintained on anastrosole since Nov 2020. S/p radiation treatment. Status post bilateral total mastectomy in November 2020, immediately had bilateral reconstruction with placement of expanders. Other PMHx includes chronic systolic heart failure, HTN, anemia ventricular bigeminy. Pt presents to the ER today with worsening dyspnea on exertion and weakness. Over the summer the patient received a Zometa infusion. Shortly after that it was noticed that her LFTs increased. At her visit with Dr. Lambert on 11/09/2021 patient did not receive Zometa infusion due to elevated LFTs and did not want to resume until improvement in lab results. Repeat heme/onc visit her labs were again noted to be elevated and a liver ultrasound was ordered. Her results from 11/30/21 showed two hepatic cycst noted, the large measured 1.4 x 1.5 x 0.9 cm and ascites was noted anterior to the liver, also cholelithiasis without evidence of cholecystitis. She was referred to outpatient hepatology and it was determined that the elevation is likely due to the Zometa infusion earlier this summer as she is not on other medication that would cause LFT elevated. She has a liver biopsy scheduled for 02/08/22 due to persistent elevation with Dr. Arce at [facility]. She was seen by her PCP on 02/01/22 due to shortness of breath, dyspnea on exertion and worsening fatigue which has been going on for about 1.5 weeks. They ordered a chest xray and it did not show fluid. She stopped taking spironolactone and Jardiance about 3-4 weeks ago because of peeing all he time and dizziness. She reports her abdomen feels "so hard" today. She admits to looking pale recently. She denies any hematuria or blood in stool, or other overt bleeding. Pt notes recent decrease in metoprolol succinate to 25mg HS. She did take all her own medication last night. Pt notes she is unable to walk more than 20 feet due to shortness of breath currently. Admission Exam Per Admitting Provider Physical Exam: General: awake, alert, no apparent distress. + pallor and skin slightly jaundiced Head: Normocephalic, atraumatic ENT: PERRL, EOMI, + scleral icterus, no pharyngeal exudate, + edentulous, +mucous membranes dry Chest: Clear to auscultation, on room air, no adventitious breath sounds, + bilateral breast expanders in place, purple discoloration of the right breast s/p radiation treatment Cardiac: Regular rate and rhythm, no murmur, no JVD, normal peripheral pulses, good capillary refill Abdominal: NABS x 4 quadrants, + hard, +distended, no palpable fluid wave, nontender to palpation, no rebound or guarding Extremities: Normal inspection, +1 peripheral edema ankles bilaterally, no erythema, calfs nontender to palpation Psych: Normal mood and affect Neuro: AAO x 3, strength intact bilaterally and rated 5/5, no motor deficits, speech is clear, no peripheral sensory deficits Principal Dx & Hospital Course #1 = Principal Diagnosis (1) Anemia: (2) Ascites: (3) Breast cancer: (4) Elevated transaminase level: (5) Generalized weakness: (6) Chronic systolic CHF (congestive heart failure): (7) Hypertension: Plan This is a 57-year-old female with PMHx of invasive lobular carcinoma, right breast, originally diagnosed 04/07/19 21, ER positive, ID positive, HER2/almaz negative. Metastasis to axillary lymph node and extensive osseous metastasis. Status post chemotherapy with Paclitaxol x12 weeks (April 2020-September 2020) and maintained on anastrosole since Nov 2020. S/p radiation treatment. Status post bilateral total mastectomy in November 2020, immediately had bilateral reconstruction with placement of expanders. Other PMHx includes chronic systolic heart failure, HTN, anemia ventricular bigeminy. Pt presented to the ER with worsening dyspnea on exertion and weakness. Over the summer the patient received a Zometa infusion. Shortly after that it was noticed that her LFTs increased. At her visit with Dr. Lambert on 11/09/2021 patient did not receive Zometa infusion due to elevated LFTs and did not want to resume until improvement in lab results. Repeat heme/onc visit her labs were again noted to be elevated and a liver ultrasound was ordered. Her results from 11/30/21 showed two hepatic cysts noted, the large measured 1.4 x 1.5 x 0.9 cm and ascites was noted anterior to the liver, also cholelithiasis without evidence of cholecystitis. She was referred to outpatient hepatology and it was determined that the elevation is likely due to the Zometa infusion earlier this summer as she is not on other medication that would cause LFT elevated. She has a liver biopsy scheduled for 02/08/22 due to persistent elevation with Dr. Arce at [facility]. She was seen by her PCP on 02/01/22 due to shortness of breath, dyspnea on exertion and worsening fatigue which has been going on for about 1.5 weeks. They ordered a chest xray and it did not show fluid. She stopped taking spironolactone and Jardiance about 3-4 weeks ago because of excessive urination and dizziness. She reports her abdomen feeling more distended. She noted she was unable to walk more than 20 feet due to shortness of breath. She was admitted to medicine and H/H was 5.7/18.6 without overt bleeding. She was given 2 units of pRBCs and felt significantly better the following day. H/H post transfusion was 8.1/24.5. The patient underwent paracentesis with resulting low SAAG gradient. Cipro was started for empiric treatment of SBP per GI team. Cytology was pending at time of discharge. She was sent home in stable condition with close primary care follow-up recommended. Updated Medication List Medication Instructions Recorded Confirmed Type buspirone 5 mg tablet 10 mg PO BID 06/08/20 02/06/22 History anastrozole 1 mg tablet 1 mg PO QAM 06/17/21 02/06/22 History citalopram 10 mg tablet (Celexa) 10 mg PO HS 06/17/21 02/06/22 History famotidine 20 mg tablet 20 mg PO BID 06/17/21 02/06/22 History metoprolol succinate 50 mg 25 mg PO DAILY 02/06/22 02/06/22 History tablet,extended release 24 hr L.acidop,casei,lactis,rham-B.lact,janae 2 cap PO DAILY #20 caps 02/07/22 Rx 625 mg (10 billion cell) capsule (Advanced Probiotic) ciprofloxacin HCl 500 mg tablet 500 mg PO BID #20 tabs 02/07/22 Rx Hospital Stay Data Consultations 02/06/22 12:25 ED Decision to Admit Stat 02/06/22 13:19 Consult Gastroenterology Routine Diagnostic Imagining Performed 02/06/22 11:02 CT Abd and Pelvis [CT abd pelvis wo con] Stat 02/06/22 13:31 US paracentesis abd w/image Routine 02/07/22 13:19 US biopsy liver Routine Pending Results Patient Have Any Pending Studies at Discharge: Yes Discharge Instructions Given to Patient (Per Discharging Provider) You were admitted to the hospital for symptomatic anemia. You were given two units of blood to improve this. You were also found to have fluid in your abdomen (ascites) which was removed and sent for analysis. You were seen by a freelance photographer from [facility] (Dr. Garza). Please take all medications as instructed on discharge list below. As a result of the presence of possible infection in your abdominal fluid, you are being treated with a 10 day course of antibiotics (ciprofloxacin). You are scheduled for an upper endoscopy tomorrow with [facility] G[facility]ology at [facility] in [place]. Please follow all preoperative instructions including nothing to eat or drink after midnight tonight. It is recommended that you follow-up with your primary care physician in one week to recheck you blood count and review all pending studies. There is currently a cytology study that is pending from your abdominal paracentesis, where 1.5L of ascites was removed. It was a pleasure taking care of you! Please call if you have any questions or problems. You can reach a [facility] hospitalist on duty at [facility] 24 hours a day by calling [phone]. Take care of yourself. Shae Pedraza, [facility] Total Time Total Time Spent Total Time Spent (In Minutes): 60
--- NOTE | 2022-02-07 22:09 | Electrocardiogram Report ---
Test Reason : Blood Pressure : / mmHG Vent. Rate : 090 BPM Atrial Rate : 090 BPM P-R Int : 154 ms QRS Dur : 082 ms QT Int : 360 ms P-R-T Axes : 059 056 113 degrees QTc Int : 440 ms Normal sinus rhythm Low voltage QRS Nonspecific T wave abnormality Abnormal ECG When compared with ECG of 22-JUN-2021 11:54, Vent. rate has increased BY 40 BPM Nonspecific T wave abnormality now evident in Inferior leads T wave inversion more evident in Anterior leads Confirmed by Tyler Zhang ([id number]) on 02/07/2022 10:08:42 PM Referred By: REFERRED SELF Confirmed By:Tyler Zhang
--- NOTE | 2022-02-09 22:20 | Electrocardiogram Report ---
Test Reason : Blood Pressure : / mmHG Vent. Rate : 082 BPM Atrial Rate : 082 BPM P-R Int : 174 ms QRS Dur : 084 ms QT Int : 408 ms P-R-T Axes : 065 055 073 degrees QTc Int : 476 ms Normal sinus rhythm Low voltage QRS Nonspecific T wave abnormality Abnormal ECG When compared with ECG of 06-FEB-2022 10:40, No significant change Confirmed by Tyler Zhang ([id number]) on 02/09/2022 10:20:31 PM Referred By: REFERRED SELF Confirmed By:Tyler Zhang
--- NOTE | 2022-02-15 13:00 | Coding Query ---
PATHOLOGY To promote full compliance with coding requirements relating to patient care, physician participation is requested in all cases of remote coders uncertainty. Please assist us with the question(s) below: Please review the Pathology report and please document any relevant diagnosis(es) below: Patient with metastatic breast cancer . Please review paracentesis path report and provide a diagnosis. Thank you. Cruzito [facility] Diagnosis(es): metastatic breast cancer MTDD
== END 2022-02-07 20:15 | disposition home or self-care (01) | DRG 812 ==
LOC: ED 09:39 → EDINP 13:19 → 2N 15:36
DX: C79.51 Secondary malignant neoplasm of bone; D64.9 Anemia, unspecified; R18.0 Malignant ascites; Z88.0 Allergy status to penicillin; C77.3 Secondary and unspecified malignant neoplasm of axilla and upper limb lymph nodes; Z92.3 Personal history of irradiation; I50.22 Chronic systolic (congestive) heart failure; Z17.0 Estrogen receptor positive status [ER+]; Z85.3 Personal history of malignant neoplasm of breast; K74.60 Unspecified cirrhosis of liver; K80.20 Calculus of gallbladder without cholecystitis without obstruction; I11.0 Hypertensive heart disease with heart failure

== ENCOUNTER 2022-02-13 11:52 | Inpatient (IN) ==
--- NOTE | 2022-02-13 13:18 | XRay Report ---
TWO VIEW CHEST CLINICAL HISTORY: Dyspnea. FINDINGS: PA and lateral chest radiographs are compared to study dated 02/06/2022 and correlated with chest CT dated 07/12/[address] dated 02/06/2022. The cardiomediastinal silhouette is unre markable. There are small pleural effusions, left larger than right with bibasilar consolidation. The re is no pneumothorax. There is evidence of extensive/diffuse osseous metastatic disease. Postsurgica l change is noted in both breasts. IMPRESSION: 1. Left larger than right pleural effusions with bibasilar consolidation. These have modestly increas ed in size as compared to 02/06/2022. 2. Diffuse bony metastatic disease. ACT 112: Negative or not required by law. Electronically signed by: Nathanael Bergman M.D. 02/13/2022 1:15 PM
[2022-02-13 13:31] LABS: INR 1.3 (0.9-1.1); Partial Thromboplastin Ratio 1.2; Prothrombin Time 13.5 Seconds (9.0-12.0)
[2022-02-13 13:34] LABS: Alanine Aminotransferase 54 U/L (7-52); Albumin Globulin Ratio 0.5 (0.9-2); Albumin Level 2.4 gm/dl (3.4-5.0); Alkaline Phosphatase 461 U/L (34-104); Anion Gap 7 (3-11); Aspartate Aminotransferase 203 U/L (13-39); BUN Creatinine Ratio 21.8 (10-20); Bilirubin,Total 3.5 mg/dl (0.2-1.0); Blood Urea Nitrogen 19 mg/dl (6-23); Calcium 8.2 mg/dl (8.5-10.1); Carbon Dioxide 23 mmol/L (21-32); Chloride 102 mmol/L (98-107); Est GFR (African American) 85.7 ml/min; Globulin 4.6 gm/dl (2.5-4.0); Glucose 105 mg/dl (70-99(Fasting)); Magnesium 1.9 mg/dl (1.7-2.4); Potassium 3.8 mmol/L (3.5-5.1); Sodium 132 mmol/L (136-145)
[2022-02-13 13:37] LABS: Hematocrit (blood only) 25.7 % (34.1-44.9); Platelet Count 76 K/uL (130-400); White Blood Count 7.42 K/ul (4.8-10.8)
[2022-02-13 13:45] LABS: Acanthocytes 1+; Basophils # (auto) 0.07 K/uL (0-0.2); Basophils % (auto) 0.9 %; Eosinophils # (auto) 0.04 K/uL (0-0.50); Eosinophils % (auto) 0.5 %; Immature Granulocytes # (auto) 0.29 K/uL (0.00-0.02); Immature Granulocytes % (auto) 3.9 %; Lymphocytes # (auto) 1.88 K/uL (1.2-3.4); Lymphocytes % (auto) 25.3 %; Mean Corpuscular Hemoglobin 30.3 pg (25.0-34.0); Mean Corpuscular Hgb Conc 31.1 g/dL (32.0-36.0); Mean Corpuscular Volume 97.3 fL (80.0-100.0); Monocytes # (auto) 0.87 K/uL (0.24-0.82); Monocytes % (auto) 11.7 %; Neutrophils # (auto) 4.27 K/uL (1.4-6.5); Neutrophils % (auto) 57.7 %; Nucleated RBC # (auto) 1.33 K/uL (0-0); Nucleated RBC % (auto) 17.9 %; Pappenheimer Bodies 1+; Polychromasia 2+; RDW Coefficient of Variation 23.8 % (11.5-14.5); RDW Standard Deviation 76.8 fL (36.4-46.3); Red Blood Count 2.64 M/uL (3.93-5.22); Schistocytes 1+; Spherocytes 1+
--- NOTE | 2022-02-13 19:11 | Emergency Department Note ---
Impression & Plan Pleural effusion, Anemia, Abdominal ascites, GASTON (dyspnea on exertion), Thrombocytopenia, COVID-19 ED Provider Note NAME: CHU UMANA AGE: 57 SEX: F : 1965 ARRIVES VIA: Walk-In INFORMANT: Patient, patient's significant other ED PROVIDER(S): Jack Gomez DO CHIEF COMPLAINT: Shortness of breath HPI: The patient is a 57-year-old female who presented to the emergency department for an evaluation of shortness of breath. Patient started noticing shortness of breath with exertion over the course the last few days. The patient has a history of ascites. The patient has a history of cancer as well as heart failure. She also has chronic anemia. The patient is being worked up for this ascites but she presented back to the emergency department today because of worsening shortness of breath especially with exertion. The patient has noticed lower extremity swelling as well as a dry cough. The patient denies having any chest pain. The patient denies having any nausea or vomiting. The patient did have a paracentesis when she was here recently but did not have a large volume of ascites removed. Patient denies having any bleeding. ROS: See above HPI for pertinent positives & negatives. A total of 10 systems reviewed and were otherwise negative. PAST MEDICAL HISTORY: See Below PAST SURGICAL HISTORY: See Below FAMILY HISTORY: See Below SOCIAL HISTORY: See Below HOME MEDICATIONS: See Below ALLERGIES: See Below VITALS: See Below PHYSICAL EXAMINATION: GENERAL: The patient is listless but answers questions appropriately. EYES: The conjunctivae are pale. The pupils are round and reactive. EARS, NOSE, MOUTH AND THROAT: The nose is without any evidence of any deformity. Mucous membranes are moist. Tongue is midline. NECK: The neck is nontender and supple. RESPIRATORY: Absent breath sounds are noted in the right lung field. There is tachypnea. CARDIOVASCULAR: Regular rate and rhythm noted there no murmurs rubs or gallops normal S1 normal S2. GASTROINTESTINAL: The abdomen is soft and mildly distended. There is no guarding rigidity. MUSCULOSKELETAL/EXTREMITIES: There is no evidence of gross deformity full range of motion is noted in the hips and shoulders. SKIN: Pedal edema was noted bilaterally. NEUROLOGIC: Patient is awake to verbal commands. She is oriented to person place and time. MEDICAL DECISION MAKING: The patient is a 57-year-old female who presented to the emergency department for an evaluation of difficulty breathing. The patient has a history of cancer. She is also been noticing pleural effusion as well as ascites on recent visits. She was seen by gastroenterology and had a biopsy recently. She also had a paracentesis recently. She states that the fluid reaccumulated quickly. Her family member states that she is been having worsening difficulty breathing especially with any exertion. I discussed patient's laboratory and radiographic studies with him. I will discuss her case in the abnormal [facility] Hospitalist group. They have agreed to evaluate the patient in the emergency department for further management and disposition. Triage Nursing notes reviewed. Prior medical records reviewed Vital Signs: reviewed and remarkable for no significant abnormalities Dif Reactive airway disease, pneumonia, pneumothorax, COPD, CHF, infections, cardiac ischemia, pulmonary embolism, musculoskeletal, gastrointestinal, as well as other pathologies. ER treatment provided: See below Diagnostics interpreted by me: ECG: EKG was obtained in the emergency department. My interpretation is normal sinus rhythm at 79 bpm. There was no ectopy. Anterior T wave versions were noted. This was compared to a tracing from February 07, 2022. No changes were noted. Cardiac Monitoring: An order was placed for continuous cardiac monitoring. The monitor shows a rate of 83 bpm with sinus rhythm. Laboratory studies: As stated above and show below. Imaging studies: See below Consultation(s): I discussed this case with Dr. Wyatt who is on-call for the [facility] hospitalist group. Past Med/Surg History Medical History Anxiety Bigeminy Breast cancer DX MAR 2020/SX/HX CHEMO (LAST CHEMO SEP 2020) , HX RADIATION (FEB 2021) Complication of chemotherapy HIGH BLOOD PRESSURE/ ? D/T STEROIDS Diverticular disease Family health problem AUNT HAD A HEART ATTACK AND THE MED GIVEN HAD A 1 IN A MILLION CHANCE OF REACTION. AUNT HAD REACTION AND DIDN'T MAKE IT. NO FURTHER DETAILS KNOWN. Heart problem heart function decreased Hypertension hx PVCs (premature ventricular contractions) Sleep apnea NOT DX - NO HX SLEEP STUDY...PLAN TO DO FOLLOWING THIS CARDIAC PROCEDURE Surgical History History of bilateral mastectomy WITH SPACERS History of colonoscopy WITH ENDOSCOPY History of surgery HX PORT AND SINCE REMOVED (LAST WEEK REMOVED / HEALING) History of tonsillectomy and adenoidectomy Family History Denies family history of COPD (chronic obstructive pulmonary disease) Social History Smoking Status: Never smoker Second Hand Exposure: No; Hx Alcohol Use: No Hx Substance Use: No Preferred Language: Estonian Communication Ability: Effective Credit Rating Checker Required: No Beliefs That Will Affect Care: None marital status: Single Current Living Situation: Spouse 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 Feels Safe at Home: Yes Assistive Devices: None Allergies Allergies Allergy/AdvReac Type Severity Reaction Status Date / Time Penicillins Allergy Unknown Turned blue Verified 02/13/22 20:25 egg AdvReac Unknown Gastrointestinal Verified 02/13/22 20:25 Upset Home Meds Home Medications Medication Instructions Recorded Confirmed anastrozole 1 mg tablet 1 mg PO QAM 06/17/21 02/13/22 citalopram 10 mg tablet (Celexa) 10 mg PO HS 06/17/21 02/13/22 famotidine 20 mg tablet 20 mg PO [facility] 06/17/21 02/13/22 buspirone 10 mg tablet 10 mg PO [facility] 02/13/22 02/13/22 metoprolol succinate 25 mg 25 mg PO HS 02/13/22 02/13/22 tablet,extended release 24 hr milk thistle 500 mg capsule 1,000 mg PO QAM 02/13/22 02/13/22 Previous Rx's Medication Instructions Recorded L.acidop,casei,lactis,rham-B.lact,janae 2 cap PO DAILY #20 caps 02/07/22 625 mg (10 billion cell) capsule (Advanced Probiotic) ciprofloxacin HCl 500 mg tablet 500 mg PO BID #20 tabs 02/07/22 Results & Data (ED) Vital Signs Vital Signs - 24 hr 02/13/22 12:20 02/13/22 11:53 02/13/22 11:53 Temperature 37.1 C Temperature Source Oral Pulse Rate 85 Respiratory Rate 20 Respiratory Effort / Characteristics Short of Breath Non-Labored Respiratory Depth Normal Normal Respiratory Pattern Regular Regular Blood Pressure 104/65 Blood Pressure Mean 78 Pulse Oximetry 93 97 Oxygen Delivery Method Room Air Room Air Oxygen Flow Rate 0 Sepsis Recent Fever Within 48 Hours No Sepsis New/Unexplained Change in Mental Status No Sepsis Action Taken by Nursing No Action Required Home Medications Current Medication List: was personally reviewed by me Laboratory Data Attestation: I reviewed the patient's lab results. Result diagrams: 02/13/22 13:00 02/13/22 13:00 Lab Results 02/13/22 02/13/22 02/13/22 Range/Units 13:00 13:00 13:00 WBC 7.42 (4.8-10.8) K/ul RBC 2.64 L (3.93-5.22) M/uL Hgb 8.0 L (12.0-16.0) g/dl Hct 25.7 L (34.1-44.9) % MCV 97.3 (80.0-100.0) fL MCH 30.3 (25.0-34.0) pg MCHC 31.1 L (32.0-36.0) g/dL RDW Std Deviation 76.8 H (36.4-46.3) fL RDW Coeff of Dmitry 23.8 H (11.5-14.5) % Plt Count 76 L (130-400) K/uL Immature Gran % (Auto) 3.9 % Neut % (Auto) 57.7 % Lymph % (Auto) 25.3 % Hamblen % (Auto) 11.7 % Eos % (Auto) 0.5 % Baso % (Auto) 0.9 % Neut # (Auto) 4.27 (1.4-6.5) K/uL Lymph # (Auto) 1.88 (1.2-3.4) K/uL Hamblen # (Auto) 0.87 H (0.24-0.82) K/uL Eos # (Auto) 0.04 (0-0.50) K/uL Baso # (Auto) 0.07 (0-0.2) K/uL Immature Gran # (Auto) 0.29 H (0.00-0.02) K/uL Absolute Nucleated RBC 1.33 H (0-0) K/uL Nucleated RBC % (auto) 17.9 % Polychromasia 2+ Spherocytes 1+ Pappenheimer Bodies 1+ Acanthocytes (Spur) 1+ Schistocytes 1+ PT 13.5 H (9.0-12.0) Seconds INR 1.3 H (0.9-1.1) APTT 33.0 H (21.0-31.0) Seconds PTT Ratio 1.2 Sodium 132 L (136-145) mmol/L Potassium 3.8 (3.5-5.1) mmol/L Chloride 102 (98-107) mmol/L Carbon Dioxide 23 (21-32) mmol/L Anion Gap 7 (3-11) BUN 19 (6-23) mg/dl Creatinine 0.87 (0.6-1.2) mg/dl Est Cr Clr Drug Dosing Not Reportable Est GFR ( Amer) 85.7 ml/min Est GFR (Non-Af Amer) 74.0 ml/min BUN/Creatinine Ratio 21.8 H (10-20) Glucose 105 H (70-99(Fasting)) mg/dl Calcium 8.2 L (8.5-10.1) mg/dl Magnesium 1.9 (1.7-2.4) mg/dl Total Bilirubin 3.5 H (0.2-1.0) mg/dl AST 203 H (13-39) U/L ALT 54 H (7-52) U/L Alkaline Phosphatase 461 H (34-104) U/L Troponin I High Sens (0-14) pg/ml Total Protein 7.0 (6.0-8.3) gm/dl Albumin 2.4 L (3.4-5.0) gm/dl Globulin 4.6 H (2.5-4.0) gm/dl Albumin/Globulin Ratio 0.5 L (0.9-2) SARS-CoV-2 (PCR) (Negative) Influenza Type A (PCR) (Neg) Influenza Type B (PCR) (Neg) RSV (RT-PCR) (Neg) 02/13/22 02/13/22 Range/Units 13:00 19:55 WBC (4.8-10.8) K/ul RBC (3.93-5.22) M/uL Hgb (12.0-16.0) g/dl Hct (34.1-44.9) % MCV (80.0-100.0) fL MCH (25.0-34.0) pg MCHC (32.0-36.0) g/dL RDW Std Deviation (36.4-46.3) fL RDW Coeff of Dmitry (11.5-14.5) % Plt Count (130-400) K/uL Immature Gran % (Auto) % Neut % (Auto) % Lymph % (Auto) % Hamblen % (Auto) % Eos % (Auto) % Baso % (Auto) % Neut # (Auto) (1.4-6.5) K/uL Lymph # (Auto) (1.2-3.4) K/uL Hamblen # (Auto) (0.24-0.82) K/uL Eos # (Auto) (0-0.50) K/uL Baso # (Auto) (0-0.2) K/uL Immature Gran # (Auto) (0.00-0.02) K/uL Absolute Nucleated RBC (0-0) K/uL Nucleated RBC % (auto) % Polychromasia Spherocytes Pappenheimer Bodies Acanthocytes (Spur) Schistocytes PT (9.0-12.0) Seconds INR (0.9-1.1) APTT (21.0-31.0) Seconds PTT Ratio Sodium (136-145) mmol/L Potassium (3.5-5.1) mmol/L Chloride (98-107) mmol/L Carbon Dioxide (21-32) mmol/L Anion Gap (3-11) BUN (6-23) mg/dl Creatinine (0.6-1.2) mg/dl Est Cr Clr Drug Dosing Est GFR ( Amer) ml/min Est GFR (Non-Af Amer) ml/min BUN/Creatinine Ratio (10-20) Glucose (70-99(Fasting)) mg/dl Calcium (8.5-10.1) mg/dl Magnesium (1.7-2.4) mg/dl Total Bilirubin (0.2-1.0) mg/dl AST (13-39) U/L ALT (7-52) U/L Alkaline Phosphatase (34-104) U/L Troponin I High Sens 13.7 (0-14) pg/ml Total Protein (6.0-8.3) gm/dl Albumin (3.4-5.0) gm/dl Globulin (2.5-4.0) gm/dl Albumin/Globulin Ratio (0.9-2) SARS-CoV-2 (PCR) POSITIVE A* (Negative) Influenza Type A (PCR) Negative (Neg) Influenza Type B (PCR) Negative (Neg) RSV (RT-PCR) Negative (Neg) Imaging Data Radiologist's Impression: Chest X-Ray 02/13/22 12:25 TWO VIEW CHEST CLINICAL HISTORY: Dyspnea. FINDINGS: PA and lateral chest radiographs are compared to study dated 02/06/2022 and correlated with chest CT dated 07/12/[address] dated 02/06/2022. The cardiomediastinal silhouette is unremarkable. There are small pleural effusions, left larger than right with bibasilar consolidation. There is no pneumothorax. There is evidence of extensive/diffuse osseous metastatic disease. Postsurgical change is noted in both breasts. IMPRESSION: 1. Left larger than right pleural effusions with bibasilar consolidation. These have modestly increased in size as compared to 02/06/2022. 2. Diffuse bony metastatic disease. ACT 112: Negative or not required by law. Electronically signed by: Nathanael Bergman M.D. 02/13/2022 1:15 PM Discharge Plan Visit Data Chief Complaint: Shortness of Breath/Dyspnea Stated Complaint: SOB, SWELLING IN FEET ED Provider: Jack Gomez Discharge Problem: Pleural effusion, Anemia, Abdominal ascites, GASTON (dyspnea on exertion), Thrombocytopenia, COVID-19 Patient Disposition: Being Evaluated by Hospitalist
[2022-02-13 20:53] LABS: Influenza A virus by PCR Negative (Neg); Influenza B virus by PCR Negative (Neg); RSV by PCR Negative (Neg)
[2022-02-13 21:02] LABS: SARS CoV2 RNA(COVID-19) Ceph POSITIVE (Negative)
--- NOTE | 2022-02-13 23:27 | History and Physical Report ---
DATE OF ADMISSION: 02/13/2022. CHIEF COMPLAINT: Shortness of breath. HISTORY OF PRESENT ILLNESS: This is a 57-year-old female with past medical history significant for invasive lobular carcinoma of right breast that was originally diagnosed on 04/07/2019, ER positive, UT positive, HER-2 Alissa negative, metastatic to axillary lymph node and extensive osseous metastasis, status post neoadjuvant dose-dense AC followed by weekly paclitaxel, which was completed in mid September 2020, right mastectomy and right axillary lymph node dissection. Final pathology showed a significant residual lobular cancer, multiple foci, grade 2,alergets faci 2.5cm, one intramammary lymph node and 7 sentinel lymph nodes positive for metastatic disease. She completed adjuvant radiation treatment at [facility]. She also had left mastectomy, which showed small foci of lobular carcinoma in situ, now on anastrozole every day. As per heme/onco notes from 06/2021 she has high risk for recurrent disease, based on large primary tumor,and insignificant response to the chemotherapy . She has bilateral breast reconstruction with placement of expanders. Past medical history also includes chronic systolic CHF with EF of 25%, hypertension, anemia, ventricular bigeminy. She received Zometa infusion after that, she was found to have elevated LFTs. She recently was admitted for shortness of breath and significant anemia, hemoglobin of 5.7 without overt bleeding. She was given 2 units of PRBCs and felt better and hemoglobin was 8.5 the next day. The patient underwent paracentesis with resulting low SAAG gradient. Cipro was started for empiric treatment for SBP per GI team and she was discharged to follow up .Ascitic fluid cytology was showing malignant cells consistent with metastatic adenocarcinoma of breast primary, estrogen receptor positive with progesterone receptor negative, HER2 negative and she also followed with GI and a left liver lobe needle core biopsy showed metastatic carcinoma consistent with breast origin. The patient comes today because of shortness of breath, dizzy while ambulating and was worried that she again has anemia, so came here. Hemoglobin stable at 8. She has some lower extremity swelling. Chest x-ray shows pleural effusions. Denies any chest pain. No cough, no fevers, no nausea or vomiting. No abdominal pain. Appetite is down. No difficulty swallowing. Has mild headache. No blurred visions. No blood in the stools or black stools. Urine is dark in color. Her COVID test came back positive. ALLERGIES: PENICILLINS. PAST MEDICAL HISTORY: As mentioned above. PAST SURGICAL HISTORY: Bilateral breast expanders, right breast lymph node biopsy, colonoscopy, EGDs, EGD with endoscopic ultrasound, bilateral mastectomies, simple breast biopsy. MEDICATIONS: The patient is on anastrozole 1 mg p.o. a.m., buspirone 10 mg p.o. b.i.d., ciprofloxacin 500 mg p.o. b.i.d. for 10 days, Celexa 10 mg p.o. at bedtime, famotidine 20 mg p.o. b.i.d., probiotic 2 capsules p.o. daily, metoprolol succinate 25 mg p.o. daily, milk thistle 1000mg p.o. a.m. FAMILY HISTORY: Significant for maternal aunt has breast cancer. SOCIAL HISTORY: . No smoking, no alcohol, no drug use. REVIEW OF SYSTEMS: As per HPI. Rest of review of systems is negative. PHYSICAL EXAMINATION: GENERAL: The patient is of moderate build, not in acute distress. VITAL SIGNS: Temperature 37.1, pulse 85, respiratory rate 20, blood pressure 104/65, oxygen 93% on room air. HEENT: Pupils equal, round and reactive to light. Oral mucosa moist. NECK: No JVD, no neck masses. CARDIOVASCULAR: S1 and S2 heard. Regular rate and rhythm. No murmur, no gallop. RESPIRATORY SYSTEM: Normal AP diameter. No accessory muscle use. Mild bibasilar crackles. No wheezing. ABDOMEN: Soft, bowel sounds present, somewhat tense, mild distention. No guarding, no rigidity. CENTRAL NERVOUS SYSTEM: Cranial nerves II through XII are grossly intact, nonfocal. EXTREMITIES: Bilateral lower extremity pedal edema present, no erythema seen. LABORATORY DATA: WBC 7.4, hemoglobin 8, hematocrit 25.7, platelets 76. PT 13.5, INR 1.3, APTT 33. Sodium 132, potassium 3.8, chloride 102, bicarbonate 23, BUN 19, creatinine 0.8, serum glucose 105, calcium 8.2, magnesium 1.9, total bilirubin 3.5, AST 203 ALT 54, alkaline phosphatase 461. Troponin I high sensitivity 13.7. SARS-CoV-2 PCR positive. Influenza A and B PCR negative. RSV PCR negative. IMAGING DATA: Chest x-ray, left larger than right pleural effusions and bibasilar consolidation. This is moderately increased in size. Diffuse bony metastatic disease. EKG: Normal sinus rhythm at a rate of 82. Nonspecific T-wave abnormalities. No significant change was found. ASSESSMENT AND PLAN: This is a 57-year-old female who presents with shortness of breath. 1. Shortness of breath mostly from pleural effusions, probably [id number] systolic congestive heart failure. We will treat with IV Lasix 20 b.i.d. We will follow echocardiogram, I's and O's, daily weights. Monitor closely in the PCU. Consult cardiology. 2. Bilateral pleural effusions, probably from congestive heart failure, possibly could be from metastatic breast disease, getting Lasix. We will consult pulmonary for possible thoracocentesis. 3. COVID positive, we will place on covid precautions. Currently, seems to be saturating okay.If getting worse, we will start her on Decadron. Closely monitor. 3. Metastatic breast cancer, status post chemotherapy, surgery and radiation. As per the hematology/oncology notes in June 2021, thought to be having chance of recurrence. It looks like ascitic fluid and liver biopsy showed metastatic breast cancer. We will notify hematology/oncology. 4. Anemia, hemoglobin of 8. On last admission, this was 5.7, received two units of PRBCs and seems stable at 8, we will follow the labs. 5. Elevated liver function tests, possibly from the ongoing metastatic liver disease. We will follow the repeat labs. 6. Ascites. Recently in last admission had paracentesis done. Cipro for empiric treatment for spontaneous bacterial peritonitis for 10 days ordered. We will continue the course. Looks like a malignant effusion. Will consult GI. 7. Depression. Continue Celexa. 8. Gastroesophageal reflux disease. Continue famotidine. 9. History of premature ventricular contractions, ventricular bigeminy. Continue metoprolol. 10. Thrombocytopenia. From metastatic cancer?Needs close followup. 11. elevated lft. will follow repeat labs. 12. Deep venous thrombosis prophylaxis. Currently, we will place on sequential compression devices as the patient's platelets are low. DISPOSITION: Closely monitor in [place]. Level 1 full code. PT/OT prior to discharge. Social service to help with discharge planning. Job ID: [id number] [facility]
[2022-02-14] MEDS ORDERED: NITROGLYCERIN SL 0.4 MG/TAB TAB SL PRN (01:09)
[2022-02-14] MEDS ORDERED: POLYETHYLENE (MIRALAX) 17 GM PACK PO PRN (01:09)
[2022-02-14] MEDS ORDERED: FUROSEMIDE INJ 20 MG/2 ML VIAL IV ONE (01:12)
[2022-02-14] MEDS ORDERED: CITALOPRAM 20 MG TAB PO STA (01:27)
[2022-02-14] MEDS ORDERED: METOPROLOL SUCC 25MG EXT REL TAB PO STA (01:27)
[2022-02-14] MEDS ORDERED: FAMOTIDINE 20 MG TAB PO STA (01:27)
[2022-02-14] MEDS ORDERED: busPIRone 5 MG TAB PO STA (01:27)
[2022-02-14] MEDS ORDERED: CIPROFLOXACIN 500 MG TAB PO STA (01:28)
[2022-02-14 06:49] LABS: Hemoglobin 6.7 g/dl (12.0-16.0); Mean Corpuscular Hemoglobin 30.9 pg (25.0-34.0); Mean Corpuscular Hgb Conc 31.9 g/dL (32.0-36.0); Mean Corpuscular Volume 96.8 fL (80.0-100.0); Nucleated RBC # (auto) 1.27 K/uL (0-0); Nucleated RBC % (auto) 15.6 %; Platelet Count 68 K/uL (130-400); RDW Coefficient of Variation 23.2 % (11.5-14.5); RDW Standard Deviation 74.9 fL (36.4-46.3); Red Blood Count 2.17 M/uL (3.93-5.22); White Blood Count 8.12 K/ul (4.8-10.8)
[2022-02-14 06:57] LABS: Anion Gap 6 (3-11); BUN Creatinine Ratio 23.6 (10-20); Blood Urea Nitrogen 26 mg/dl (6-23); Calcium 7.6 mg/dl (8.5-10.1); Carbon Dioxide 24 mmol/L (21-32); Chloride 103 mmol/L (98-107); Est GFR (African American) 64.5 ml/min; Est GFR (Non-African American) 55.7 ml/min; Glucose 93 mg/dl (70-99(Fasting)); Magnesium 1.8 mg/dl (1.7-2.4); Sodium 133 mmol/L (136-145)
[2022-02-14 07:11] LABS: Acanthocytes 1+; Basophils # (auto) 0.08 K/uL (0-0.2); Eosinophils # (auto) 0.07 K/uL (0-0.50); Eosinophils % (auto) 0.9 %; Immature Granulocytes # (auto) 0.25 K/uL (0.00-0.02); Immature Granulocytes % (auto) 3.1 %; Lymphocytes # (auto) 2.13 K/uL (1.2-3.4); Lymphocytes % (auto) 26.2 %; Monocytes % (auto) 18.5 %; Neutrophils # (auto) 4.09 K/uL (1.4-6.5); Neutrophils % (auto) 50.3 %; Pappenheimer Bodies 1+; Polychromasia 2+; Schistocytes 1+; Spherocytes 1+
--- NOTE | 2022-02-14 08:11 | Pulmonary Consultation ---
Date of Consultation February 14, 2022 Assessment & Plan (1) Pleural effusion: (2) Fluid overload: (3) Malignant ascites: Plan Patient with a history of metastatic breast cancer and malignant Ascites discovered on 02/07/2022. She presents with anasarca. Incidentally seen on chest x-ray were small bilateral effusions, left greater than right. Pulmonary is consulted for management of the pleural effusions. Agree with diuresis. I will defer thoracentesis at this time. Recommend ultrasound of the abdomen and paracentesis to be performed by radiology. I discussed this with hospitalist service. Controlling the ascites will likely help prevent further pleural effusions. Consider palliative care consultation this admission given frequent hospital admissions and refractory symptoms related to heart failure and breast cancer. Recommend consulting with her outpatient oncologist. She was discovered to incidentally have COVID-19. I doubt that she has COVID-19 viral pneumonia. History of Present Illness Reason for Consultation: Bilateral pleural effusions Attending Physician: Monika Hoang MD History of Present Illness 57-year-old female with a past medical history of metastatic breast cancer diagnosed in 2019 with mets to the bones and peritoneal fluid presenting to the hospital due to increasing shortness of breath. Imaging of the chest yesterday demonstrated bilateral pleural effusions. She recently had a paracentesis which revealed a malignant ascites. She also has a history of systolic heart failure with an EF of 37% based on a nuclear stress test in May. Chest x-ray personally reviewed by me with mild bilateral effusion seen. Patient's labs are significant for thrombocytopenia down to 60,000, anemia of 6.7 and hyponatremia of 133. INR 1.3. Patient notes that her breathing is little better after receiving a dose of Lasix in the ER. She is currently saturating well on room air. She denies any fever. Minimal cough. She does have some nasal drainage over the last couple days. She notes that she has had increasing shortness of breath with exertion and some mild orthopnea over the past few days since her paracentesis. She notes that she was not aware that her ascitic fluid was malignant until I just told her. Allergies Allergy/AdvReac Type Severity Reaction Status Date / Time Penicillins Allergy Unknown Turned blue Verified 02/13/22 20:25 egg AdvReac Unknown Gastrointestinal Verified 02/13/22 20:25 Upset Home Medications Medication Instructions Recorded Confirmed Type anastrozole 1 mg tablet 1 mg PO QAM 06/17/21 02/13/22 History citalopram 10 mg tablet (Celexa) 10 mg PO HS 06/17/21 02/13/22 History famotidine 20 mg tablet 20 mg PO AMHS 06/17/21 02/13/22 History L.acidop,casei,lactis,rham-B.lact,janae 2 cap PO DAILY #20 caps 02/07/22 02/13/22 Rx 625 mg (10 billion cell) capsule (Advanced Probiotic) ciprofloxacin HCl 500 mg tablet 500 mg PO BID #20 tabs 02/07/22 02/13/22 Rx buspirone 10 mg tablet 10 mg PO AMHS 02/13/22 02/13/22 History metoprolol succinate 25 mg 25 mg PO HS 02/13/22 02/13/22 History tablet,extended release 24 hr milk thistle 500 mg capsule 1,000 mg PO QAM 02/13/22 02/13/22 History Patient History Medical History (Updated 02/14/22 @ 08:09 by Masoud Mcdermott MD) Anxiety Bigeminy Breast cancer DX MAR 2020/SX/HX CHEMO (LAST CHEMO SEP 2020) , HX RADIATION (FEB 2021) Complication of chemotherapy HIGH BLOOD PRESSURE/ ? D/T STEROIDS Diverticular disease Family health problem AUNT HAD A HEART ATTACK AND THE MED GIVEN HAD A 1 IN A MILLION CHANCE OF REACTION. AUNT HAD REACTION AND DIDN'T MAKE IT. NO FURTHER DETAILS KNOWN. Fluid overload Heart problem heart function decreased Hypertension hx Malignant ascites PVCs (premature ventricular contractions) Sleep apnea NOT DX - NO HX SLEEP STUDY...PLAN TO DO FOLLOWING THIS CARDIAC PROCEDURE Surgical History History of bilateral mastectomy WITH SPACERS History of colonoscopy WITH ENDOSCOPY History of surgery HX PORT AND SINCE REMOVED (LAST WEEK REMOVED / HEALING) History of tonsillectomy and adenoidectomy Family History Denies family history of COPD (chronic obstructive pulmonary disease) Social History Smoking Status: Never smoker Second Hand Exposure: No; Hx Alcohol Use: No Hx Substance Use: No Preferred Language: Belarusian Communication Ability: Effective Air Intelligence Specialist Required: No Beliefs That Will Affect Care: None marital status: Single Current Living Situation: Spouse 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 Patient is in no apparent distress. Patient is well-developed. Eyes: Pupils are equal round and reactive to light. Conjunctivae are normal. Anicteric sclera. Ears nose, mouth and throat: Mallampati class 2. Normal posterior oropharynx. Uvula is midline. Neck: Trachea is midline. Visual inspection is normal. Respiratory: Mild crackles bilaterally. No tachypnea. No wheeze. Cardiovascular: Regular rate and rhythm. No murmurs. No edema. Gastrointestinal: Tense abdomen. No significant tenderness on palpation. Positive fluid wave Musculoskeletal: No cyanosis. Patient is able to move all extremities. Skin: No rashes, warm dry and intact. Neurologic: No obvious focal neurological deficits seen. Psychiatric: Alert and oriented x3 with a euthymic affect. Results & Data Results & Data ([facility]) Vital Signs (Past 12 Hours) Vital Signs Temp Pulse Pulse Resp BP BP Pulse Ox 02/14/22 04:42 90 19 100/67 97 02/14/22 03:00 96 02/14/22 03:00 98/56 L 02/14/22 02:50 96 02/14/22 02:40 97 02/14/22 02:30 98 02/14/22 02:20 98 02/14/22 02:10 97 02/14/22 02:00 90 02/14/22 02:00 98/66 L 02/14/22 01:50 90 02/14/22 01:40 90 02/14/22 01:30 91 02/14/22 01:20 91 02/14/22 01:10 92 02/14/22 01:05 92 02/14/22 01:05 109/69 02/14/22 00:00 92 H 16 02/13/22 23:50 88 22 02/13/22 23:40 88 20 02/13/22 23:30 85 19 02/13/22 23:20 83 17 02/13/22 23:10 86 02/13/22 23:00 85 19 02/13/22 22:50 83 17 02/13/22 22:46 83 19 02/14/22 02:00 89 20 98/66 L 98 02/14/22 01:10 37 C 74 18 109/69 94 02/14/22 00:00 02/13/22 22:39 83 16 136/77 95 O2 Del Method O2 Flow Rate 02/14/22 04:42 2 02/14/22 03:00 02/14/22 03:00 02/14/22 02:50 02/14/22 02:40 02/14/22 02:30 02/14/22 02:20 02/14/22 02:10 02/14/22 02:00 02/14/22 02:00 02/14/22 01:50 02/14/22 01:40 02/14/22 01:30 02/14/22 01:20 02/14/22 01:10 02/14/22 01:05 02/14/22 01:05 02/14/22 00:00 02/13/22 23:50 02/13/22 23:40 02/13/22 23:30 02/13/22 23:20 02/13/22 23:10 02/13/22 23:00 02/13/22 22:50 02/13/22 22:46 02/14/22 02:00 Nasal Cannula 2 02/14/22 01:10 02/14/22 00:00 BiPAP 02/13/22 22:39 Room Air PG Care Time/CCT Total # of Minutes Spent Total Time Spent with Patient: Total time spent is greater than 50% in coordination of care (as documented) at patient's floor/unit and/or counseling patient: Coding Level of Care Code 68513 Inpt Consult Level 4 Diagnoses Pleural effusion J90 Fluid overload E87.70 Malignant ascites R18.0
[2022-02-14 08:40] LABS: Hematocrit (blood only) 21.8 % (34.1-44.9); Hemoglobin 6.9 g/dl (12.0-16.0)
[2022-02-14] MEDS: ANASTROZOLE 1 MG TAB PO SCH (08:49)
[2022-02-14] MEDS: busPIRone 5 MG TAB PO SCH ×2 (08:49→21:42)
[2022-02-14] MEDS: CIPROFLOXACIN 500 MG TAB PO SCH ×2 (08:49→21:42)
[2022-02-14] MEDS: ADVANCED PROBIOTIC 1250 MG CAPSULE PO SCH (08:49)
[2022-02-14] MEDS: FAMOTIDINE 20 MG TAB PO SCH ×2 (08:49→21:40)
[2022-02-14] MEDS ORDERED: FUROSEMIDE 40 MG/4 ML VIAL IV ONE ×2 (08:53→17:25)
[2022-02-14] MEDS: FUROSEMIDE INJ 20 MG/2 ML VIAL IV SCH ×2 (08:55→17:28)
[2022-02-14] MEDS ORDERED: SODIUM CHLORIDE 0.9% 250 ML IV PRN ×2 (09:21→09:29)
--- NOTE | 2022-02-14 10:55 | Gastrointestinal Consultation ---
Date of Consultation February 14, 2022 Assessment & Plan (1) Malignant ascites: No evidence of this being caused by cirrhosis. No evidence of SBP. (2) Elevated LFTs: Secondary to metastatic liver disease. Bile ducts were clear on imaging last week and LFTs are improved compared to l ast week. No evidence of cirrhosis on last week's liver bx. Plan No GI indication for antibiotics. Can undergo paracentesis or thoracentesis for comfort. No evidence of cirrhosis. No gross GI bleeding, anemia likely secondary to cancer and/or chemotherapy. Appreciate primary hospitalists management of fluid/blood rescusitation. Recommend palliative care. Supervising Physician Co-Signing Physician Notes Attg add: 57 yo female with met breast ca, malignant ascies, plleural effusions now admit for same. Recs as above - taps PRN, can consider surg consult for Pleurx (Dr. Benítez) if needed. Please call with questions. History of Present Illness Reason for Consultation: elevated lft, ascites Requesting Physician: Dr. Wyatt Attending Physician: Monika Hoang MD History of Present Illness Ms. Annemarie George is a 57 yr old female pt of Dr. Randhawa w a hx of HTN, anxiety who was dx'ed w breast cancer in 2020, underwent mastectomy, chemo, radiation was completed in Feb 2021. She was admitted last week and GI saw her for elevated LFTs and ascites, ascitic fluid analysis at that time w malignant cells, and there were 410 WBCs, 10% neutrophils. She was empirically tx for SBP being DC'ed on Cipro/Flagyl. Ascitic fluid culture was (-). SAAAG was low at that time. Imaging at that time suggested cirrhosis. After discharge, last week, she underwent EUS guided liver bx as an OP and pathology did not show cirrhosis but did show metastatic liver disease. She presented today for SOB. CXR w pleural effusions, Lt larger than Rt. On exam, her abdomen has mild/moderate ascites and is not taunt. She tested + for SARS yesterday, and other than SOB which may be from the effusions, she has not had any symptoms. Allergies Allergy/AdvReac Type Severity Reaction Status Date / Time Penicillins Allergy Unknown Turned blue Verified 02/13/22 20:25 egg AdvReac Unknown Gastrointestinal Verified 02/13/22 20:25 Upset Home Medications Medication Instructions Recorded Confirmed Type anastrozole 1 mg tablet 1 mg PO QAM 06/17/21 02/13/22 History citalopram 10 mg tablet (Celexa) 10 mg PO HS 06/17/21 02/13/22 History famotidine 20 mg tablet 20 mg PO AMHS 06/17/21 02/13/22 History L.acidop,casei,lactis,rham-B.lact,janae 2 cap PO DAILY #20 caps 02/07/22 02/13/22 Rx 625 mg (10 billion cell) capsule (Advanced Probiotic) ciprofloxacin HCl 500 mg tablet 500 mg PO BID #20 tabs 02/07/22 02/13/22 Rx buspirone 10 mg tablet 10 mg PO AMHS 02/13/22 02/13/22 History metoprolol succinate 25 mg 25 mg PO HS 02/13/22 02/13/22 History tablet,extended release 24 hr milk thistle 500 mg capsule 1,000 mg PO QAM 02/13/22 02/13/22 History Patient History Medical History Anxiety Bigeminy Breast cancer DX MAR 2020/SX/HX CHEMO (LAST CHEMO SEP 2020) , HX RADIATION (FEB 2021) Complication of chemotherapy HIGH BLOOD PRESSURE/ ? D/T STEROIDS Diverticular disease Family health problem AUNT HAD A HEART ATTACK AND THE MED GIVEN HAD A 1 IN A MILLION CHANCE OF R EACTION. AUNT HAD REACTION AND DIDN'T MAKE IT. NO FURTHER DETAILS KNOWN. Fluid overload Heart problem heart function decreased Hypertension hx Malignant ascites PVCs (premature ventricular contractions) Sleep apnea NOT DX - NO HX SLEEP STUDY...PLAN TO DO FOLLOWING THIS CARDIAC PROCEDURE Surgical History History of bilateral mastectomy WITH SPACERS History of colonoscopy WITH ENDOSCOPY History of surgery HX PORT AND SINCE REMOVED (LAST WEEK REMOVED / HEALING) History of tonsillectomy and adenoidectomy Family History Denies family history of COPD (chronic obstructive pulmonary disease) Social History Smoking Status: Smoker, status unknown Second Hand Exposure: No; Hx Alcohol Use: No Hx Substance Use: No Preferred Language: [place] Islander Communication Ability: Effective Social Psychologist Required: No Beliefs That Will Affect Care: None marital status: Single Current Living Situation: Spouse 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 Denies any gross GI bleeding; no N/V. : Denies pain on urination Skin: No jaundice, itching or new rashes Physical Exam Constitutional: + ill appearing, + thin and cooperative Eyes: PERRL, conjunctivae normal, anicteric sclerae ENMT: external ear and nose normal, oropharynx normal Neck: trachea midline, no thyromegaly Respiratory: Diminished at bases, no adventitious sounds. Cardiovascular: RRR, no murmur, no edema Gastrointestinal (Abdomen): Mild/moderate ascites, non tender, hypoactive BS. Musculoskeletal: no cyanosis or clubbing, extremities motor strength 5/5 Skin: no rashes, warm and dry Neurologic: PERRL, EOMI, accommodation nl, no face palsy, no dysarthria Psychiatric: A+Ox3, euthymic affect Lymphatic: no cervical or axillary lymphadenopathy Results & Data ([facility]) Vital Signs (Past 12 Hours) Vital Signs Temp Pulse Pulse Resp BP BP Pulse Ox 02/14/22 09:53 90 16 112/74 02/14/22 09:53 90 16 02/14/22 09:00 86 17 94 02/14/22 08:58 86 14 02/14/22 08:58 113/69 02/14/22 06:00 93 H 19 113/69 95 02/14/22 06:00 109/68 02/14/22 05:00 89 17 96 02/14/22 05:00 99/64 L 02/14/22 04:42 90 19 100/67 97 02/14/22 03:00 96 02/14/22 03:00 98/56 L 02/14/22 02:50 96 02/14/22 02:40 97 02/14/22 02:30 98 02/14/22 02:20 98 02/14/22 02:10 97 02/14/22 02:00 90 02/14/22 02:00 98/66 L 02/14/22 01:50 90 02/14/22 01:40 90 02/14/22 01:30 91 02/14/22 01:20 91 02/14/22 01:10 92 02/14/22 01:05 92 02/14/22 01:05 109/69 02/14/22 00:00 92 H 16 02/13/22 23:50 88 22 02/13/22 23:40 88 20 02/13/22 23:30 85 19 02/13/22 23:20 83 17 02/13/22 23:10 86 02/13/22 23:00 85 19 02/13/22 22:50 83 17 02/14/22 02:00 89 20 98/66 L 98 02/14/22 01:10 37 C 74 18 109/69 94 02/14/22 00:00 O2 Del Method O2 Flow Rate 02/14/22 09:53 02/14/22 09:53 02/14/22 09:00 02/14/22 08:58 02/14/22 08:58 02/14/22 06:00 02/14/22 06:00 02/14/22 05:00 02/14/22 05:00 02/14/22 04:42 2 02/14/22 03:00 02/14/22 03:00 02/14/22 02:50 02/14/22 02:40 02/14/22 02:30 02/14/22 02:20 02/14/22 02:10 02/14/22 02:00 02/14/22 02:00 02/14/22 01:50 02/14/22 01:40 02/14/22 01:30 02/14/22 01:20 02/14/22 01:10 02/14/22 01:05 02/14/22 01:05 02/14/22 00:00 02/13/22 23:50 02/13/22 23:40 02/13/22 23:30 02/13/22 23:20 02/13/22 23:10 02/13/22 23:00 02/13/22 22:50 02/14/22 02:00 Nasal Cannula 2 02/14/22 01:10 02/14/22 00:00 BiPAP Laboratory Results SARS + WBC 8, Hb 6.9, Hct 21.8, Plts 68, Na 133, K 4.0, Cl 103, CO2 21, BUN 6, Cr 1.1 Diagnostic Findings WBC 8, Hb 6.9, Hct 21.8, plts 68 Na 133, K 4.0, Cl 103, CO2 24, BUN 6, Cr 1.1, glucose 93 T Bili 3.5, AST 203, ALT 54, Alk Phos 461, Alb 2.4. Ascitic fluid analysis 02/06/22: Peritoneal fluid, paracentesis: - Malignant cells present consistent with metastatic carcinoma, breast primary. - Estrogen receptor: Positive (100%, strong-intermediate intensity). - Progesterone receptor: Negative (0%, no internal control available). - HER-2/almaz immunohistochemistry: Negative (score 0). - See comment.
--- NOTE | 2022-02-14 13:14 | Hospitalist Progress Note ---
Date of Service February 14, 2022 Assessment & Plan (1) GASTON (dyspnea on exertion): (2) Pleural effusion: (3) Anemia: (4) Abdominal ascites: (5) Malignant ascites: (6) Elevated LFTs: (7) Breast cancer: Plan: Patient with metastatic breast cancer who presents with worsening exertional dyspnea Exertional dyspnea is likely due to pleural effusion Anemia possibly contributing Hb was 8 on presentation, rechecks were 6.7 and 6.9 CXR showed pleural effusion Got IV lasix in ER Give 1 PRBC Pulm evaluation and recommendations noted Patient does have history of NICM likely from PVC with a previous EF of 25-30% in 05/10, improved to 51% in 07/10 after ablation of PVC foci. There was initial thought of possible HF exacerbation. However, TTE today noted normal LVSF, LVEF 55-60%, no significant valvular pathology or pericardial effusion Fluid overload likely related to malignancy Cardiology evaluation noted I discussed with Oncologist Dr Kevin Lambert who also follows patient outpatient. We reviewed patient in details He recommends getting MRI abd w/wo co for better assess possible liver mets considering elevated LFTs He also requests daily updates about patient (8) COVID-19: Plan: Tested positive for COVID However denied cough or other typical symptoms Currently on room air Pulm does not think patient has COVID pneumonia No need for COVID specific therapies at this time Plan Continue home famotidine and celexa DVT ppx - SCD for now, ambulate Admission and Anticipated Discharge Date Admission Date: February 13, 2022 Subjective Patient seen and examined Reports exertional dyspnea Denied cough, chest pain Denied rhinorrhea, sorethroat, congestion, fever, chills Reports occasional dizziness with exertion Denied palpitation Physical Exam Constitutional: + ill appearing; no acute distress Eyes: PERRL ENMT: external ear and nose normal, oropharynx normal Respiratory: normal respiratory effort; no respiratory distress Diminitshed breath sounds lung bases Cardiovascular: Rate/Rhythm: regular rate and regular rhythm S1 S2 Gastrointestinal (Abdomen): Inspection/Auscultation: + abdomen distended and normal bowel sounds Percussion/Palpation: abdomen nontender and no guarding Musculoskeletal: +pedal edema Neurologic: PERRL, EOMI, accommodation nl, no face palsy, no dysarthria Psychiatric: A+Ox3, euthymic affect Results & Data Results & Data ([facility]) Vital Signs (Past 12 Hours) Vital Signs Pulse Pulse Resp BP BP Pulse Ox O2 Del Method 02/14/22 13:04 86 16 107/68 92 02/14/22 12:47 88 16 109/71 93 02/14/22 12:00 89 14 92 02/14/22 12:00 100/55 L 02/14/22 11:31 106/61 02/14/22 11:31 88 17 94 02/14/22 11:00 90 18 92 02/14/22 11:00 106/65 02/14/22 10:00 90 17 02/14/22 10:00 110/69 02/14/22 11:21 87 16 106/65 92 Nasal Cannula 02/14/22 09:53 90 16 112/74 02/14/22 09:53 90 16 02/14/22 09:00 86 17 94 02/14/22 08:58 86 14 02/14/22 08:58 113/69 02/14/22 06:00 93 H 19 113/69 95 02/14/22 06:00 109/68 02/14/22 05:00 89 17 96 02/14/22 05:00 99/64 L 02/14/22 04:42 90 19 100/67 97 02/14/22 03:00 96 02/14/22 03:00 98/56 L 02/14/22 02:50 96 02/14/22 02:40 97 02/14/22 02:30 98 02/14/22 02:20 98 02/14/22 02:10 97 02/14/22 02:00 90 02/14/22 02:00 98/66 L 02/14/22 01:50 90 02/14/22 01:40 90 02/14/22 01:30 91 02/14/22 01:20 91 02/14/22 02:00 89 20 98/66 L 98 Nasal Cannula O2 Flow Rate 02/14/22 13:04 02/14/22 12:47 02/14/22 12:00 02/14/22 12:00 02/14/22 11:31 02/14/22 11:31 02/14/22 11:00 02/14/22 11:00 02/14/22 10:00 02/14/22 10:00 02/14/22 11:21 2 02/14/22 09:53 02/14/22 09:53 02/14/22 09:00 02/14/22 08:58 02/14/22 08:58 02/14/22 06:00 02/14/22 06:00 02/14/22 05:00 02/14/22 05:00 02/14/22 04:42 2 02/14/22 03:00 02/14/22 03:00 02/14/22 02:50 02/14/22 02:40 02/14/22 02:30 02/14/22 02:20 02/14/22 02:10 02/14/22 02:00 02/14/22 02:00 02/14/22 01:50 02/14/22 01:40 02/14/22 01:30 02/14/22 01:20 02/14/22 02:00 2 Laboratory Results Abnormal lab results 02/13/22 02/13/22 02/14/22 Range/Units 19:55 23:11 06:18 RBC 2.17 L (3.93-5.22) M/uL Hgb 6.7 L* (12.0-16.0) g/dl Hct 21.0 L (34.1-44.9) % MCHC 31.9 L (32.0-36.0) g/dL RDW Std Deviation 74.9 H (36.4-46.3) fL RDW Coeff of Dmitry 23.2 H (11.5-14.5) % Plt Count 68 L (130-400) K/uL [place] # (Auto) 1.50 H (0.24-0.82) K/uL Immature Gran # (Auto) 0.25 H (0.00-0.02) K/uL Absolute Nucleated RBC 1.27 H (0-0) K/uL Sodium (136-145) mmol/L BUN (6-23) mg/dl BUN/Creatinine Ratio (10-20) Calcium (8.5-10.1) mg/dl Troponin I High Sens 18.3 H D (0-14) pg/ml SARS-CoV-2 (PCR) POSITIVE A* (Negative) Crossmatch 02/14/22 02/14/22 02/14/22 Range/Units 06:18 08:07 09:32 RBC (3.93-5.22) M/uL Hgb 6.9 L* (12.0-16.0) g/dl Hct 21.8 L (34.1-44.9) % MCHC (32.0-36.0) g/dL RDW Std Deviation (36.4-46.3) fL RDW Coeff of Dmitry (11.5-14.5) % Plt Count (130-400) K/uL [place] # (Auto) (0.24-0.82) K/uL Immature Gran # (Auto) (0.00-0.02) K/uL Absolute Nucleated RBC (0-0) K/uL Sodium 133 L (136-145) mmol/L BUN 26 H (6-23) mg/dl BUN/Creatinine Ratio 23.6 H (10-20) Calcium 7.6 L (8.5-10.1) mg/dl Troponin I High Sens (0-14) pg/ml SARS-CoV-2 (PCR) (Negative) Crossmatch See Detail (1) Abdominal ascites Ascites type: other type Qualified Code(s): R18.8 - Other ascites (2) Anemia Anemia type: unspecified type Qualified Code(s): D64.9 - Anemia, unspecified
--- NOTE | 2022-02-14 14:24 | Cardiology Consultation ---
Date of Consultation February 14, 2022 Assessment & Plan (1) Fluid overload: (2) Pleural effusion: (3) Malignant ascites: (4) Thrombocytopenia: (5) Breast cancer: - GI and pulmonary input noted and appreciated. -Echocardiogram reveals normal biventricular systolic function. -Suspect that her fluid retention is secondary to her metastatic disease. -Supportive care for anemia as indicated. -Cautious IV furosemide 20 mg twice daily -Agree with plan for palliative care evaluation History of Present Illness Attending Physician: Monika Hoang MD History of Present Illness Annemarie George is a 57 year old female seen in cardiology consultation per the request of Dr Waytt for the evaluation of congestive heart failure. Patient presented to the emergency department last evening with chief complaint of shortness of breath. Patient has history of metastatic breast carcinoma, and had been admitted earlier this month having undergone ultrasound-guided paracentesis on 02/06/2022 yielding 1.5 L of ascites, with cytology findings consistent with a diagnosis of malignant ascites. Patient with a history of what is felt to be a nonischemic cardiomyopathy, perhaps due to frequent frequent premature ventricular contractions. Echocardiogram performed April, revealed severe left ventricular systolic dysfunction, LVEF 25 to 30%. Patient subsequently underwent electrophysiology study, and ablation of PVC foci in the left ventricular outflow tract, Jun, 2021, at time of repeat echocardiogram September,, the ejection fraction had improved to 51%. Repeat echocardiogram performed today 02/13/2022 and reviewed independently reveals normal left ventricular wall motion, LVEF 55 to 60%, without significant valvular pathology. No pericardial effusion is present. A large left pleural effusion is noted, a moderate right pleural effusion is noted, ascites noted. Patient with ongoing issues with regards to anemia, had presented with a hemoglobin of 5.7 on 02/06/2022, repeat 8 on 02/13/2022, and then down to 6.7 g/dL. Allergies Allergy/AdvReac Type Severity Reaction Status Date / Time Penicillins Allergy Unknown Turned blue Verified 02/13/22 20:25 egg AdvReac Unknown Gastrointestinal Verified 02/13/22 20:25 Upset Home Medications Medication Instructions Recorded Confirmed Type anastrozole 1 mg tablet 1 mg PO QAM 06/17/21 02/13/22 History citalopram 10 mg tablet (Celexa) 10 mg PO HS 06/17/21 02/13/22 History famotidine 20 mg tablet 20 mg PO AMHS 06/17/21 02/13/22 History L.acidop,casei,lactis,rham-B.lact,janae 2 cap PO DAILY #20 caps 02/07/22 02/13/22 Rx 625 mg (10 billion cell) capsule (Advanced Probiotic) ciprofloxacin HCl 500 mg tablet 500 mg PO BID #20 tabs 02/07/22 02/13/22 Rx buspirone 10 mg tablet 10 mg PO AMHS 02/13/22 02/13/22 History metoprolol succinate 25 mg 25 mg PO HS 02/13/22 02/13/22 History tablet,extended release 24 hr milk thistle 500 mg capsule 1,000 mg PO QAM 02/13/22 02/13/22 History Patient History Medical History Anxiety Bigeminy Breast cancer DX MAR 2020/SX/HX CHEMO (LAST CHEMO SEP 2020) , HX RADIATION (FEB 2021) Complication of chemotherapy HIGH BLOOD PRESSURE/ ? D/T STEROIDS Diverticular disease Family health problem AUNT HAD A HEART ATTACK AND THE MED GIVEN HAD A 1 IN A MILLION CHANCE OF REACTION. AUNT HAD REACTION AND DIDN'T MAKE IT. NO FURTHER DETAILS KNOWN. Fluid overload Heart problem heart function decreased Hypertension hx Malignant ascites PVCs (premature ventricular contractions) Sleep apnea NOT DX - NO HX SLEEP STUDY...PLAN TO DO FOLLOWING THIS CARDIAC PROCEDURE Surgical History History of bilateral mastectomy WITH SPACERS History of colonoscopy WITH ENDOSCOPY History of surgery HX PORT AND SINCE REMOVED (LAST WEEK REMOVED / HEALING) History of tonsillectomy and adenoidectomy Family History Denies family history of COPD (chronic obstructive pulmonary disease) Social History Smoking Status: Smoker, status unknown Second Hand Exposure: No; Hx Alcohol Use: No Hx Substance Use: No Preferred Language: Czech Communication Ability: Effective Dental Chair Assembler Required: No Beliefs That Will Affect Care: None marital status: Single Current Living Situation: Spouse 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 Other Information That Helps Us Care for You: No Feels Safe at Home: Yes Assistive Devices: None Assistive Devices Comment: dentures but didnt bring them Review of Systems Review of Systems: All systems reviewed & are unremarkable except as noted in HPI & below Physical Exam Physical Exam: Temp Pulse Resp BP Pulse Ox O2 Del Method O2 Flow Rate 37 C 86 16 107/68 92 2 02/14/22 01:10 02/14/22 13:04 02/14/22 13:04 02/14/22 13:04 02/14/22 13:04 02/14/22 11:21 02/14/22 11:21 Constitutional: + ill appearing; no acute distress Respiratory: Auscultation: + diminished lung sounds (Decreased breath sounds bilaterally at the bases); no crackles and no rales Cardiovascular: Rate/Rhythm: regular rate Heart Sounds: no murmur Extremities: + edema (1+ lower extremity edema) Gastrointestinal (Abdomen): Abdomen firm on examination, findings consistent with ascites Neurologic: PERRL, EOMI, accommodation nl, no face palsy, no dysarthria Results & Data ([facility]) Laboratory Results Cardiac Enzymes 02/13/22 02/13/22 02/13/22 Range/Units 13:00 23:11 23:11 Troponin I High Sens 13.7 18.3 H D (0-14) pg/ml B-Natriuretic Peptide 60 (0-100) pg/ml Coagulation 02/13/22 Range/Units 23:11 B-Natriuretic Peptide 60 (0-100) pg/ml CBC 02/14/22 02/14/22 Range/Units 06:18 08:07 WBC 8.12 (4.8-10.8) K/ul RBC 2.17 L (3.93-5.22) M/uL Hgb 6.7 L* 6.9 L* (12.0-16.0) g/dl Hct 21.0 L 21.8 L (34.1-44.9) % Plt Count 68 L (130-400) K/uL Neut # (Auto) 4.09 (1.4-6.5) K/uL Lymph # (Auto) 2.13 (1.2-3.4) K/uL Dent # (Auto) 1.50 H (0.24-0.82) K/uL Eos # (Auto) 0.07 (0-0.50) K/uL Baso # (Auto) 0.08 (0-0.2) K/uL Comprehensive Metabolic Panel 02/14/22 Range/Units 06:18 Sodium 133 L (136-145) mmol/L Potassium 4.0 (3.5-5.1) mmol/L Chloride 103 (98-107) mmol/L Carbon Dioxide 24 (21-32) mmol/L BUN 26 H (6-23) mg/dl Creatinine 1.10 (0.6-1.2) mg/dl Glucose 93 (70-99(Fasting)) mg/dl Calcium 7.6 L (8.5-10.1) mg/dl Intake and Output 02/13/22 02/14/22 02/14/22 22:59 06:59 14:59 Intake Total 0 / 0 Balance 0 / 0 Intake: Intake (Blood Product) Amt 0 / 0 Packed Cells, Leukoreduced 0 / 0 Unit [id number] Other: Weight 68.3 kg Weight Measurement Method Built in [facility] Patient Weight 02/15/22 06:59 Weight 68.3 kg
--- NOTE | 2022-02-14 14:34 | Palliative Care Consultation ---
Date of Consultation February 14, 2022 Assessment & Plan (1) GASTON (dyspnea on exertion): with anemia and bilateral pleural effusions. Anemia followed by Dr. Lambert. She feels that is the main reason that she feels so bad. "If that were ok, I could handle the rest" (2) Palliative care encounter: We talked about her understanding of her illness. She asked multiple questions about where the cancer came from in her abdomen and what kind of cancer it was. Despite this and previous conversations, she seems to have difficulty understanding the impact of her illness. She tells me that she is not going to give up. She wants to meet with Dr. Lambert and discuss options available for treatment. We talked about whether there were limits to what she would be willing to go through and she told me that there were not. "I'm not going to give up". We also discussed what was important to her and not losing sight of what is important to her in the process of treating the cancer. She tells me that treating the cancer is the thing that is most important to her. "That's the focus". She tells me that her is very supportive and that he would be her surrogate decision maker. History of Present Illness Reason for Consultation: goals of care Requesting Physician: Ewa Alvares Attending Physician: Monika Hoang MD History of Present Illness 57 yo lady diagnosed with ER/MI positive, HER2 negative invasive lobular carcinoma of the right breast in March of 2019. She is s/p right mastectomy with node dissection and positive sentinel lymph nodes. She completed radiation therapy and paclitaxel. She also has a history of CHF with EF of 25% and anemia with no overt bleeding. Repeat echo done yesterday, shows normal ventricular wall motion and EF of 55-60%. Her hemoglobin has dropped from 8.0 to 6.9 since admission. She recently had paracentesis for ascites which was found to be malignant with metastatic breast carcinoma on cytology. Biopsy of hepatic lesion was also positive for breast cancer. She presented with shortness of breath and dizziness. Chest xray shows bilateral pleural effusions. She is also found to be covid positive. Allergies Allergy/AdvReac Type Severity Reaction Status Date / Time Penicillins Allergy Unknown Turned blue Verified 02/13/22 20:25 egg AdvReac Unknown Gastrointestinal Verified 02/13/22 20:25 Upset Home Medications Medication Instructions Recorded Confirmed Type anastrozole 1 mg tablet 1 mg PO QAM 06/17/21 02/13/22 History citalopram 10 mg tablet (Celexa) 10 mg PO HS 06/17/21 02/13/22 History famotidine 20 mg tablet 20 mg PO AMHS 06/17/21 02/13/22 History L.acidop,casei,lactis,rham-B.lact,janae 2 cap PO DAILY #20 caps 02/07/22 02/13/22 Rx 625 mg (10 billion cell) capsule (Advanced Probiotic) ciprofloxacin HCl 500 mg tablet 500 mg PO BID #20 tabs 02/07/22 02/13/22 Rx buspirone 10 mg tablet 10 mg PO AMHS 02/13/22 02/13/22 History metoprolol succinate 25 mg 25 mg PO HS 02/13/22 02/13/22 History tablet,extended release 24 hr milk thistle 500 mg capsule 1,000 mg PO QAM 02/13/22 02/13/22 History Patient History Medical History Anxiety Bigeminy Breast cancer DX MAR 2020/SX/HX CHEMO (LAST CHEMO SEP 2020) , HX RADIATION (FEB 2021) Complication of chemotherapy HIGH BLOOD PRESSURE/ ? D/T STEROIDS Diverticular disease Family health problem AUNT HAD A HEART ATTACK AND THE MED GIVEN HAD A 1 IN A MILLION CHANCE OF REACTION. AUNT HAD REACTION AND DIDN'T MAKE IT. NO FURTHER DETAILS KNOWN. Fluid overload Heart problem heart function decreased Hypertension hx Malignant ascites PVCs (premature ventricular contractions) Sleep apnea NOT DX - NO HX SLEEP STUDY...PLAN TO DO FOLLOWING THIS CARDIAC PROCEDURE Surgical History History of bilateral mastectomy WITH SPACERS History of colonoscopy WITH ENDOSCOPY History of surgery HX PORT AND SINCE REMOVED (LAST WEEK REMOVED / HEALING) History of tonsillectomy and adenoidectomy Family History Denies family history of COPD (chronic obstructive pulmonary disease) Social History Smoking Status: Smoker, status unknown Second Hand Exposure: No; Hx Alcohol Use: No Hx Substance Use: No Preferred Language: Macanese Communication Ability: Effective Log Cutter Required: No Beliefs That Will Affect Care: None marital status: Single Current Living Situation: Spouse 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 Other Information That Helps Us Care for You: No Feels Safe at Home: Yes Assistive Devices: None Assistive Devices Comment: dentures but didnt bring them Review of Systems Review of Systems: ESAS Pain 0/3 Dyspnea 0/3 Anxiety 1/3 Nausea 0/3 Drowsiness 0/3 Physical Exam Constitutional: no acute distress ENMT: Mouth: oral mucous membranes not dry Respiratory: normal respiratory effort; no labored breathing Gastrointestinal (Abdomen): distended, nontender Musculoskeletal: Extremities: extremities normal to inspection Skin: warm and dry Neurologic: awake; not confused Psychiatric: Orientation: oriented x 3 Results & Data ([facility]) Vital Signs (Past 12 Hours) Vital Signs Pulse Pulse Resp BP BP Pulse Ox O2 Del Method 02/14/22 13:04 86 16 107/68 92 02/14/22 12:47 88 16 109/71 93 02/14/22 12:00 89 14 92 02/14/22 12:00 100/55 L 02/14/22 11:31 106/61 02/14/22 11:31 88 17 94 02/14/22 11:00 90 18 92 02/14/22 11:00 106/65 02/14/22 10:00 90 17 02/14/22 10:00 110/69 02/14/22 11:21 87 16 106/65 92 Nasal Cannula 02/14/22 09:53 90 16 112/74 02/14/22 09:53 90 16 02/14/22 09:00 86 17 94 02/14/22 08:58 86 14 02/14/22 08:58 113/69 02/14/22 06:00 93 H 19 113/69 95 02/14/22 06:00 109/68 02/14/22 05:00 89 17 96 02/14/22 05:00 99/64 L 02/14/22 04:42 90 19 100/67 97 02/14/22 03:00 96 02/14/22 03:00 98/56 L 02/14/22 02:50 96 02/14/22 02:40 97 02/14/22 02:30 98 O2 Flow Rate 02/14/22 13:04 02/14/22 12:47 02/14/22 12:00 02/14/22 12:00 02/14/22 11:31 02/14/22 11:31 02/14/22 11:00 02/14/22 11:00 02/14/22 10:00 02/14/22 10:00 02/14/22 11:21 2 02/14/22 09:53 02/14/22 09:53 02/14/22 09:00 02/14/22 08:58 02/14/22 08:58 02/14/22 06:00 02/14/22 06:00 02/14/22 05:00 02/14/22 05:00 02/14/22 04:42 2 02/14/22 03:00 02/14/22 03:00 02/14/22 02:50 02/14/22 02:40 02/14/22 02:30 PG Care Time/CCT Total # of Minutes Spent Total Time Spent: 73 Total Time Spent with Patient: Total time spent is greater than 50% in coordination of care (as documented) at patient's floor/unit and/or counseling patient:[id number] Goals of care, surrogate decision maker, patient education and support. Coding Level of Care Code 32619 Initial Inpt Care Lvl 3 Diagnoses GASTON (dyspnea on exertion) R06.09 Palliative care encounter Z51.5
--- NOTE | 2022-02-14 17:06 | Electrocardiogram Report ---
Test Reason : Blood Pressure : / mmHG Vent. Rate : 079 BPM Atrial Rate : 079 BPM P-R Int : 150 ms QRS Dur : 084 ms QT Int : 402 ms P-R-T Axes : 068 064 086 degrees QTc Int : 460 ms Normal sinus rhythm Possible Left atrial enlargement Nonspecific T wave abnormality Prolonged QT Abnormal ECG When compared with ECG of 07-FEB-2022 07:10, T wave inversion more evident in Anterior leads Nonspecific T wave abnormality, improved in Lateral leads Confirmed by Dany Boothe ([id number]) on 02/14/2022 5:06:31 PM Referred By: REFERRED SELF Confirmed By:Cheko Boothe
[2022-02-14] MEDS ORDERED: METOPROLOL SUCC 25MG EXT REL TAB PO SCH (21:00)
[2022-02-14] MEDS ORDERED: Nursing to Pharmacy Communication SCH (21:15)
[2022-02-14] MEDS: METOPROLOL SUCC 25MG EXT REL TAB PO SCH (21:41)
[2022-02-14] MEDS: CITALOPRAM 20 MG TAB PO SCH (21:41)
[2022-02-14 21:47] LABS: Hematocrit (blood only) 24.7 % (34.1-44.9); Hemoglobin 8.1 g/dl (12.0-16.0)
[2022-02-15] MEDS: FAMOTIDINE 20 MG TAB PO SCH ×2 (07:57→20:45)
[2022-02-15] MEDS: ADVANCED PROBIOTIC 1250 MG CAPSULE PO SCH (07:57)
[2022-02-15] MEDS: FUROSEMIDE INJ 20 MG/2 ML VIAL IV SCH ×2 (07:57→18:15)
[2022-02-15] MEDS: CIPROFLOXACIN 500 MG TAB PO SCH ×2 (07:57→20:43)
[2022-02-15] MEDS: busPIRone 5 MG TAB PO SCH ×2 (07:57→20:44)
[2022-02-15] MEDS: ANASTROZOLE 1 MG TAB PO SCH (09:11)
[2022-02-15 09:46] LABS: Hemoglobin 7.7 g/dl (12.0-16.0); Mean Corpuscular Hemoglobin 30.2 pg (25.0-34.0); Mean Corpuscular Hgb Conc 32.1 g/dL (32.0-36.0); Mean Corpuscular Volume 94.1 fL (80.0-100.0); Nucleated RBC # (auto) 0.89 K/uL (0-0); Nucleated RBC % (auto) 12.6 %; Platelet Count 73 K/uL (130-400); RDW Coefficient of Variation 22.3 % (11.5-14.5); Red Blood Count 2.55 M/uL (3.93-5.22); White Blood Count 7.07 K/ul (4.8-10.8)
[2022-02-15 10:37] LABS: Albumin Globulin Ratio 0.6 (0.9-2); Albumin Level 2.2 gm/dl (3.4-5.0); BUN Creatinine Ratio 25.7 (10-20); Bilirubin Direct 1.5 mg/dl (0-0.2); Bilirubin,Total 3.4 mg/dl (0.2-1.0); Calcium 7.9 mg/dl (8.5-10.1); Creatinine Clr Calc Pharmacy 53.2 ml/min; Est GFR (African American) 68.3 ml/min; Est GFR (Non-African American) 58.9 ml/min; Globulin 3.8 gm/dl (2.5-4.0); Potassium 3.3 mmol/L (3.5-5.1)
[2022-02-15] MEDS ORDERED: POTASSIUM CHLORIDE CRTAB 20 MEQ TABCR PO ONE (11:08)
--- NOTE | 2022-02-15 17:17 | Hospitalist Progress Note ---
Date of Service February 15, 2022 Assessment & Plan (1) GASTON (dyspnea on exertion): (2) Pleural effusion: (3) Anemia: (4) Abdominal ascites: (5) Malignant ascites: (6) Elevated LFTs: (7) Breast cancer: Plan: Metastatic Breast cancer Malignant ascites, possible malignant pleural effusion Metastatic disease to liver, bone ER positive, VT negative H/O chemotherapy, radiation, surgery Fluid overload -CXR:Left larger than right pleural effusions with bibasilar consolidation. These have modestly increased in size as compared to 02/06/2022. Diffuse bony metastatic disease. -ECHO:normal biventricular systolic function -Follows with [facility] oncology as outpatient -Continue IV Lasix Monitor volume status Appreciate pulmonology, cardiology, GI input Needs follow-up with oncology upon discharge Patient prefers to continue chemotherapy if offered Anemia of chronic disease No obvious bleeding issues Thrombocytopenia S/P PRBC Monitor CBC H/O PVC S/P ablation Transaminitis Likely due to liver mets, COVID Outpatient liver biopsy consistent with metastatic breast cancer Monitor LFTs (8) COVID-19: Plan: Tested positive for COVID Currently on room air Continue supportive care Plan Continue home famotidine and celexa DVT Px SCDs Admission and Anticipated Discharge Date Admission Date: February 13, 2022 Subjective Patient is seen and examined at bedside Denies any significant cough, shortness of breath No distress on exam Reports mild abdominal distention Discussed with oncology Dr. Lambert over the phone Saturating low 90s on room air No other complaints Review of Systems Review of Systems: All systems reviewed & are unremarkable except as noted in Subjective Physical Exam Physical Exam: Physical Exam: Vitals signs as noted above General Appearance: Chronic ill-appearing, no apparent distress Head: normocephalic, Atraumatic Eyes: normal inspection, EOMI Neck: supple, Trachea midline Respiratory/Chest: Decreased breath sounds, CTA, No accessory muscle use Cardiovascular: S1, S2, No murmur Abdomen/GI:Soft, mildly distended, non tender, Bowel sounds present Extremities/Musculoskeletal:normal inspection, + edema Neurologic/Psych:AAOX3, grossly no focal neurological deficits Skin: normal color, warm Results & Data Results & Data ([facility]) Vital Signs (Past 12 Hours) Vital Signs Temp Pulse Pulse Resp BP Pulse Ox O2 Del Method 02/15/22 08:00 83 02/15/22 08:00 Room Air 02/15/22 11:46 36.4 C L 85 16 112/65 92 Room Air 02/15/22 07:53 36.7 C 86 16 89 L Room Air Laboratory Results Short CBC 02/14/22 02/15/22 Range/Units 21:25 09:06 WBC 7.07 (4.8-10.8) K/ul Hgb 8.1 L 7.7 L (12.0-16.0) g/dl Hct 24.7 L 24.0 L (34.1-44.9) % Plt Count 73 L (130-400) K/uL BMP 02/15/22 09:06 Sodium 134 L Potassium 3.3 L Chloride 102 Carbon Dioxide 24 BUN 27 H Creatinine 1.05 Glucose 128 H Calcium 7.9 L Liver Function 02/15/22 Range/Units 09:06 Total Bilirubin 3.4 H (0.2-1.0) mg/dl Direct Bilirubin 1.5 H (0-0.2) mg/dl AST 159 H (13-39) U/L ALT 42 (7-52) U/L Alkaline Phosphatase 371 H (34-104) U/L Albumin 2.2 L (3.4-5.0) gm/dl (1) Anemia Anemia type: unspecified type Qualified Code(s): D64.9 - Anemia, unspecified (2) Abdominal ascites Ascites type: other type Qualified Code(s): R18.8 - Other ascites
[2022-02-15] MEDS: CITALOPRAM 20 MG TAB PO SCH (20:44)
[2022-02-15] MEDS: POTASSIUM CHLORIDE 10 MEQ TABCR PO SCH (20:45)
[2022-02-15] MEDS: METOPROLOL SUCC 25MG EXT REL TAB PO SCH (20:46)
[2022-02-16 07:29] LABS: Albumin Level 2.1 gm/dl (3.4-5.0); BUN Creatinine Ratio 26.5 (10-20); Bilirubin Direct 1.4 mg/dl (0-0.2); Bilirubin,Total 3.1 mg/dl (0.2-1.0); C Reactive Protein 4.11 mg/dl (0-0.5); Calcium 7.5 mg/dl (8.5-10.1); Creatinine Clr Calc Pharmacy 54.8 ml/min; Est GFR (African American) 70.7 ml/min; Potassium 3.7 mmol/L (3.5-5.1); Total Protein 5.7 gm/dl (6.0-8.3)
[2022-02-16 07:36] LABS: Hematocrit (blood only) 22.7 % (34.1-44.9); Hemoglobin 7.2 g/dl (12.0-16.0); Mean Corpuscular Hemoglobin 30.5 pg (25.0-34.0); Mean Corpuscular Hgb Conc 31.7 g/dL (32.0-36.0); Mean Corpuscular Volume 96.2 fL (80.0-100.0); Mean Platelet Volume 10.2 fL (9.4-12.3); Nucleated RBC # (auto) 0.97 K/uL (0-0); Nucleated RBC % (auto) 13.2 %; Platelet Count 68 K/uL (130-400); RDW Coefficient of Variation 22.5 % (11.5-14.5); Red Blood Count 2.36 M/uL (3.93-5.22); White Blood Count 7.34 K/ul (4.8-10.8)
[2022-02-16] MEDS: POTASSIUM CHLORIDE 10 MEQ TABCR PO SCH ×2 (08:55→20:22)
[2022-02-16] MEDS: busPIRone 5 MG TAB PO SCH ×2 (08:55→20:21)
[2022-02-16] MEDS: FAMOTIDINE 20 MG TAB PO SCH ×2 (08:55→20:20)
[2022-02-16] MEDS: CIPROFLOXACIN 500 MG TAB PO SCH ×2 (08:55→20:21)
[2022-02-16] MEDS: ADVANCED PROBIOTIC 1250 MG CAPSULE PO SCH (08:55)
[2022-02-16] MEDS: ANASTROZOLE 1 MG TAB PO SCH (10:14)
[2022-02-16] MEDS: FUROSEMIDE INJ 20 MG/2 ML VIAL IV SCH ×2 (10:14→17:48)
--- NOTE | 2022-02-16 13:28 | Ultrasound Report ---
US abdomen ltd ascites HISTORY: 57 years-old Female Ascites recurrent ascites COMPARISON: Ultrasound-guided paracentesis 02/06/2022 TECHNIQUE: Multiple real-time sonographic images of the abdomen were obtained assessing grayscale giuseppe earance FINDINGS: There is only a small amount of ascites noted throughout the abdomen. Cirrhotic liver redemonstrated. IMPRESSION: Due to the small amount of abdominal ascites and patient's positive Covid status, a thera peutic paracentesis was not performed. ACT 112: Negative or not required by law. The above report was generated using voice recognition software. It may contain grammatical, syntax o r spelling errors. Electronically signed by: Reinier Huertas M.D. 02/16/2022 1:27 PM
[2022-02-16 16:35] LABS: Appearance Urine Clear (Clear); Bilirubin Urine Negative (Negative); Blood Urine Negative (Negative); Color Urine Dark Yellow; Glucose Urine UA Negative (Negative); Ketones Urine Negative (Negative); Leukocyte Esterase Urine Negative (Negative); Nitrite Urine Negative (Negative); Protein Urine Negative (Negative); Urobilinogen Urine Negative (Negative)
--- NOTE | 2022-02-16 17:02 | Hospitalist Progress Note ---
Date of Service February 16, 2022 Assessment & Plan (1) GASTON (dyspnea on exertion): (2) Pleural effusion: (3) Anemia: (4) Abdominal ascites: (5) Malignant ascites: (6) Elevated LFTs: (7) Breast cancer: Plan: Metastatic Breast cancer Malignant ascites, possible malignant pleural effusion Metastatic disease to liver, bone ER positive, ID negative H/O chemotherapy, radiation, surgery Fluid overload -CXR:Left larger than right pleural effusions with bibasilar consolidation. These have modestly increased in size as compared to 02/06/2022. Diffuse bony metastatic disease. -ECHO:normal biventricular systolic function -Follows with [facility] oncology as outpatient -Continue IV Lasix Monitor volume status Appreciate pulmonology, cardiology, GI input Patient prefers to continue chemotherapy if offered Needs follow-up with oncology upon discharge Ultrasound showed only minimal ascites, so unable to perform paracentesis Anemia of chronic disease No obvious bleeding issues Thrombocytopenia S/P PRBC Monitor CBC Hemoglobin 7.2 today H/O PVC S/P ablation Transaminitis Likely due to liver mets, COVID Outpatient liver biopsy consistent with metastatic breast cancer Monitor LFTs LFTs slowly improving (8) COVID-19: Plan: Tested positive for COVID Currently on room air Continue supportive care Plan Continue home famotidine and celexa DVT Px SCDs Admission and Anticipated Discharge Date Admission Date: February 13, 2022 Subjective Patient is seen and examined at bedside States having less abdominal distention today Shortness of breath is better today Was nauseous overnight but resolved this morning Denies any chest pain, dizziness, abdominal pain Review of Systems Review of Systems: All systems reviewed & are unremarkable except as noted in Subjective Physical Exam Physical Exam: Physical Exam: Vitals signs as noted above General Appearance: Chronic ill-appearing, no apparent distress Head: normocephalic, Atraumatic Eyes: normal inspection, EOMI Neck: supple, Trachea midline Respiratory/Chest: Decreased breath sounds, CTA, No accessory muscle use Cardiovascular: S1, S2, No murmur Abdomen/GI:Soft, mildly distended, non tender, Bowel sounds present Extremities/Musculoskeletal:normal inspection, + edema Neurologic/Psych:AAOX3, grossly no focal neurological deficits Skin: normal color, warm Results & Data Results & Data ([facility]) Vital Signs (Past 12 Hours) Vital Signs Temp Pulse Resp BP Pulse Ox O2 Del Method 02/16/22 08:52 36.6 C 85 16 115/73 92 Room Air Laboratory Results Short CBC 02/16/22 Range/Units 06:51 WBC 7.34 (4.8-10.8) K/ul Hgb 7.2 L (12.0-16.0) g/dl Hct 22.7 L (34.1-44.9) % Plt Count 68 L (130-400) K/uL BMP 02/16/22 06:51 Sodium 134 L Potassium 3.7 Chloride 104 Carbon Dioxide 26 BUN 27 H Creatinine 1.02 Glucose 92 Calcium 7.5 L Liver Function 02/16/22 Range/Units 06:51 Total Bilirubin 3.1 H (0.2-1.0) mg/dl Direct Bilirubin 1.4 H (0-0.2) mg/dl AST 145 H (13-39) U/L ALT 37 (7-52) U/L Alkaline Phosphatase 370 H (34-104) U/L Albumin 2.1 L (3.4-5.0) gm/dl Urine 02/16/22 Range/Units 12:15 Urine Color Dark Yellow Urine Appearance Clear (Clear) Urine pH 5.0 (4.5-7.5) Ur Specific [place] 1.010 (1.000-1.030) Urine Protein Negative (Negative) Urine Glucose (UA) Negative (Negative) (1) Anemia Anemia type: unspecified type Qualified Code(s): D64.9 - Anemia, unspecified (2) Abdominal ascites Ascites type: other type Qualified Code(s): R18.8 - Other ascites
[2022-02-16] MEDS: CITALOPRAM 20 MG TAB PO SCH (20:16)
[2022-02-16] MEDS: ONDANSETRON INJ 2 MG/ML 2 ML VIAL IV PRN (20:16)
[2022-02-16] MEDS: METOPROLOL SUCC 25MG EXT REL TAB PO SCH (20:22)
[2022-02-17] MEDS: busPIRone 5 MG TAB PO SCH ×2 (08:40→22:20)
[2022-02-17] MEDS: FAMOTIDINE 20 MG TAB PO SCH ×2 (08:41→22:23)
[2022-02-17] MEDS: CIPROFLOXACIN 500 MG TAB PO SCH ×2 (08:41→22:22)
[2022-02-17] MEDS: ADVANCED PROBIOTIC 1250 MG CAPSULE PO SCH (08:41)
[2022-02-17] MEDS: POTASSIUM CHLORIDE 10 MEQ TABCR PO SCH ×2 (08:42→22:21)
[2022-02-17 08:48] LABS: Hemoglobin 7.7 g/dl (12.0-16.0); Mean Corpuscular Hemoglobin 30.8 pg (25.0-34.0); Mean Corpuscular Hgb Conc 32.1 g/dL (32.0-36.0); Mean Platelet Volume 10.1 fL (9.4-12.3); Nucleated RBC # (auto) 0.98 K/uL (0-0); Nucleated RBC % (auto) 12.6 %; Platelet Count 74 K/uL (130-400); RDW Coefficient of Variation 22.5 % (11.5-14.5); RDW Standard Deviation 71.3 fL (36.4-46.3); White Blood Count 7.75 K/ul (4.8-10.8)
[2022-02-17] MEDS: FUROSEMIDE INJ 20 MG/2 ML VIAL IV SCH ×2 (08:49→16:42)
[2022-02-17 09:05] LABS: Albumin Level 2.3 gm/dl (3.4-5.0); BUN Creatinine Ratio 32.2 (10-20); Bilirubin Direct 1.3 mg/dl (0-0.2); Calcium 7.9 mg/dl (8.5-10.1); Creatinine Clr Calc Pharmacy 64.2 ml/min; Est GFR (African American) 85.7 ml/min; Potassium 3.7 mmol/L (3.5-5.1); Total Protein 6.3 gm/dl (6.0-8.3)
[2022-02-17] MEDS: ANASTROZOLE 1 MG TAB PO SCH (09:18)
--- NOTE | 2022-02-17 16:28 | Hospitalist Progress Note ---
Date of Service February 17, 2022 Assessment & Plan (1) GASTON (dyspnea on exertion): (2) Pleural effusion: (3) Anemia: (4) Abdominal ascites: (5) Malignant ascites: (6) Elevated LFTs: (7) Breast cancer: Plan: Metastatic Breast cancer Malignant ascites, possible malignant pleural effusion Metastatic disease to liver, bone ER positive, [place] negative H/O chemotherapy, radiation, surgery Fluid overload -CXR:Left larger than right pleural effusions with bibasilar consolidation. These have modestly increased in size as compared to 02/06/2022. Diffuse bony metastatic disease. -ECHO:normal biventricular systolic function -Follows with [facility] oncology as outpatient Monitor volume status Appreciate pulmonology, cardiology, GI input Patient prefers to continue chemotherapy if offered Needs follow-up with oncology upon discharge Ultrasound showed only minimal ascites, so unable to perform paracentesis Pulmonology recommends to avoid thoracentesis and continue diuresis for now Continue IV Lasix Placed on fluid restriction Anemia of chronic disease No obvious bleeding issues Thrombocytopenia S/P PRBC Monitor CBC Hemoglobin 7.7 today H/O PVC S/P ablation Transaminitis Likely due to liver mets, COVID Outpatient liver biopsy consistent with metastatic breast cancer Monitor LFTs LFTs slowly improving (8) COVID-19: Plan: Tested positive for COVID Currently on room air Continue supportive care Plan Continue home famotidine and celexa DVT Px SCDs Admission and Anticipated Discharge Date Admission Date: February 13, 2022 Subjective Patient is seen and examined at bedside States feeling better No new complaints Feels abdomen is less tense Discussed with pulmonary and cardiology today Denies any chest pain, dizziness, abdominal pain Review of Systems Review of Systems: All systems reviewed & are unremarkable except as noted in Subjective Physical Exam Physical Exam: Physical Exam: Vitals signs as noted above General Appearance: Chronic ill-appearing, no apparent distress Head: normocephalic, Atraumatic Eyes: normal inspection, EOMI Neck: supple, Trachea midline Respiratory/Chest: Decreased breath sounds, CTA, No accessory muscle use Cardiovascular: S1, S2, No murmur Abdomen/GI:Soft, mildly distended, non tender, Bowel sounds present Extremities/Musculoskeletal:normal inspection, + edema Neurologic/Psych:AAOX3, grossly no focal neurological deficits Skin: normal color, warm Results & Data Results & Data ([facility]) Vital Signs (Past 12 Hours) Vital Signs Temp Pulse Resp BP Pulse Ox O2 Del Method 02/17/22 11:27 36.6 C 82 16 110/68 91 Room Air 02/17/22 07:44 36.4 C L 87 18 118/71 95 Room Air Laboratory Results Short CBC 02/17/22 Range/Units 08:05 WBC 7.75 (4.8-10.8) K/ul Hgb 7.7 L (12.0-16.0) g/dl Hct 24.0 L (34.1-44.9) % Plt Count 74 L (130-400) K/uL BMP 02/17/22 08:05 Sodium 132 L Potassium 3.7 Chloride 102 Carbon Dioxide 23 BUN 28 H Creatinine 0.87 Glucose 137 H Calcium 7.9 L Liver Function 02/17/22 Range/Units 08:05 Total Bilirubin 3.0 H (0.2-1.0) mg/dl Direct Bilirubin 1.3 H (0-0.2) mg/dl AST 150 H (13-39) U/L ALT 39 (7-52) U/L Alkaline Phosphatase 403 H (34-104) U/L Albumin 2.3 L (3.4-5.0) gm/dl Urine 02/16/22 Range/Units 12:15 Urine Color Dark Yellow Urine Appearance Clear (Clear) Urine pH 5.0 (4.5-7.5) Ur Specific Hooper 1.010 (1.000-1.030) Urine Protein Negative (Negative) Urine Glucose (UA) Negative (Negative) (1) Anemia Anemia type: unspecified type Qualified Code(s): D64.9 - Anemia, unspecified (2) Abdominal ascites Ascites type: other type Qualified Code(s): R18.8 - Other ascites
[2022-02-17] MEDS: ONDANSETRON INJ 2 MG/ML 2 ML VIAL IV PRN (22:20)
[2022-02-17] MEDS: CITALOPRAM 20 MG TAB PO SCH (22:20)
[2022-02-17] MEDS: METOPROLOL SUCC 25MG EXT REL TAB PO SCH (22:22)
[2022-02-18 06:39] LABS: Hematocrit (blood only) 22.1 % (34.1-44.9); Mean Corpuscular Hgb Conc 31.7 g/dL (32.0-36.0); Mean Corpuscular Volume 97.8 fL (80.0-100.0); Nucleated RBC # (auto) 1.23 K/uL (0-0); Nucleated RBC % (auto) 14.9 %; Platelet Count 70 K/uL (130-400); RDW Coefficient of Variation 22.5 % (11.5-14.5); RDW Standard Deviation 75.3 fL (36.4-46.3); Red Blood Count 2.26 M/uL (3.93-5.22); White Blood Count 8.26 K/ul (4.8-10.8)
[2022-02-18 06:52] LABS: Albumin Globulin Ratio 0.6 (0.9-2); Albumin Level 2.2 gm/dl (3.4-5.0); BUN Creatinine Ratio 30.3 (10-20); Bilirubin,Total 2.8 mg/dl (0.2-1.0); Calcium 7.7 mg/dl (8.5-10.1); Creatinine Clr Calc Pharmacy 56.4 ml/min; Est GFR (African American) 73.3 ml/min; Est GFR (Non-African American) 63.3 ml/min; Globulin 3.8 gm/dl (2.5-4.0); Potassium 3.8 mmol/L (3.5-5.1)
[2022-02-18] MEDS ORDERED: SODIUM CHLORIDE 0.9% 250 ML IV PRN (08:48)
[2022-02-18] MEDS: FAMOTIDINE 20 MG TAB PO SCH ×2 (09:01→21:58)
[2022-02-18] MEDS: POTASSIUM CHLORIDE 10 MEQ TABCR PO SCH ×2 (09:02→21:58)
[2022-02-18] MEDS: busPIRone 5 MG TAB PO SCH ×2 (09:02→21:57)
[2022-02-18] MEDS: ADVANCED PROBIOTIC 1250 MG CAPSULE PO SCH (09:03)
[2022-02-18] MEDS: ANASTROZOLE 1 MG TAB PO SCH (09:03)
[2022-02-18] MEDS: FUROSEMIDE INJ 20 MG/2 ML VIAL IV SCH ×2 (09:08→16:57)
--- NOTE | 2022-02-18 09:26 | XRay Report ---
XR chest 1V portable CLINICAL HISTORY: Hypoxia. COMPARISON STUDY: Chest radiograph February 13, 2022. FINDINGS: Osseous metastases are again noted. There is no pneumothorax. Small bilateral pleural effus ions similar to prior study. Interstitial thickening and bilateral airspace opacities, greater within the right lung, have progressed. Cardiomediastinal silhouette is stable. IMPRESSION: 1. Interval progression of interstitial thickening and airspace opacities, greater within the right l bárbara. The findings favor pulmonary edema. A superimposed infectious process could appear similar altho ugh is considered less likely. 2. No significant change in small bilateral pleural effusions. ACT 112: Negative or not required by law. Electronically signed by: Esequiel Scott M.D. 02/18/2022 9:25 AM
[2022-02-18] MEDS ORDERED: FUROSEMIDE INJ 20 MG/2 ML VIAL IV SCH (10:30)
--- NOTE | 2022-02-18 15:17 | Hospitalist Progress Note ---
Date of Service February 18, 2022 Assessment & Plan (1) GASTON (dyspnea on exertion): (2) Pleural effusion: (3) Anemia: (4) Abdominal ascites: (5) Malignant ascites: (6) Elevated LFTs: (7) Breast cancer: Plan: Metastatic Breast cancer Malignant ascites, possible malignant pleural effusion Metastatic disease to liver, bone ER positive, [place] negative H/O chemotherapy, radiation, surgery Fluid overload -CXR:Left larger than right pleural effusions with bibasilar consolidation. These have modestly increased in size as compared to 02/06/2022. Diffuse bony metastatic disease. -ECHO:normal biventricular systolic function -Follows with [facility] oncology as outpatient Monitor volume status Appreciate pulmonology, cardiology, GI input Patient prefers to continue chemotherapy if offered Needs follow-up with oncology upon discharge Ultrasound showed only minimal ascites, so unable to perform paracentesis Pulmonology recommends to avoid thoracentesis and continue diuresis for now Continue IV Lasix Placed on fluid restriction CXR today suggestive of Pulm edema Will give extra dose of lasix after blood transfusion Anemia of chronic disease No obvious bleeding issues Thrombocytopenia S/P PRBC Monitor CBC Hemoglobin 7.0 today Will give 1 unit PRBCs today H/O PVC S/P ablation Transaminitis Likely due to liver mets, COVID Outpatient liver biopsy consistent with metastatic breast cancer Monitor LFTs LFTs slowly improving (8) COVID-19: Plan: Tested positive for COVID Currently on room air Continue supportive care Plan Continue home famotidine and celexa DVT Px SCDs Admission and Anticipated Discharge Date Admission Date: February 13, 2022 Subjective Patient is seen and examined at bedside No new complaints Denies any chest pain, dizziness, abdominal pain, cough, dyspnea Hb 7.0 today Denies any bleeding issues CXR suggestive of Pulm edema Review of Systems Review of Systems: All systems reviewed & are unremarkable except as noted in Subjective Physical Exam Physical Exam: Physical Exam: Vitals signs as noted above General Appearance: Chronic ill-appearing, no apparent distress Head: normocephalic, Atraumatic Eyes: normal inspection, EOMI Neck: supple, Trachea midline Respiratory/Chest: Decreased breath sounds, CTA, No accessory muscle use Cardiovascular: S1, S2, No murmur Abdomen/GI:Soft, mildly distended, non tender, Bowel sounds present Extremities/Musculoskeletal:normal inspection, + edema Neurologic/Psych:AAOX3, grossly no focal neurological deficits Skin: normal color, warm Results & Data Results & Data ([facility]) Vital Signs (Past 12 Hours) Vital Signs Temp Pulse Pulse Resp BP BP Pulse Ox 02/18/22 12:45 36.8 C 91 H 20 121/78 98 02/18/22 12:15 36.3 C L 88 16 123/75 97 02/18/22 11:45 36.5 C 86 18 113/69 98 02/18/22 11:30 36.6 C 84 18 112/71 98 02/18/22 11:11 36.9 C 88 16 111/69 91 02/18/22 08:30 02/18/22 07:56 36.5 C 84 16 112/68 96 O2 Del Method O2 Flow Rate 02/18/22 12:45 2 02/18/22 12:15 2 02/18/22 11:45 2 02/18/22 11:30 2 02/18/22 11:11 2 02/18/22 08:30 Room Air 02/18/22 07:56 Nasal Cannula 2 Laboratory Results Short CBC 02/18/22 Range/Units 05:50 WBC 8.26 (4.8-10.8) K/ul Hgb 7.0 L (12.0-16.0) g/dl Hct 22.1 L (34.1-44.9) % Plt Count 70 L (130-400) K/uL BMP 02/18/22 05:50 Sodium 133 L Potassium 3.8 Chloride 103 Carbon Dioxide 24 BUN 30 H Creatinine 0.99 Glucose 96 Calcium 7.7 L Liver Function 02/18/22 Range/Units 05:50 Total Bilirubin 2.8 H (0.2-1.0) mg/dl AST 142 H (13-39) U/L ALT 35 (7-52) U/L Alkaline Phosphatase 373 H (34-104) U/L Albumin 2.2 L (3.4-5.0) gm/dl (1) Anemia Anemia type: unspecified type Qualified Code(s): D64.9 - Anemia, unspecified (2) Abdominal ascites Ascites type: other type Qualified Code(s): R18.8 - Other ascites
[2022-02-18] MEDS: CITALOPRAM 20 MG TAB PO SCH (21:55)
[2022-02-18] MEDS: METOPROLOL SUCC 25MG EXT REL TAB PO SCH (22:01)
[2022-02-19] MEDS: ONDANSETRON INJ 2 MG/ML 2 ML VIAL IV PRN (03:30)
[2022-02-19 08:04] LABS: Hemoglobin 7.7 g/dl (12.0-16.0); Mean Corpuscular Hemoglobin 30.4 pg (25.0-34.0); Mean Corpuscular Hgb Conc 32.1 g/dL (32.0-36.0); Mean Corpuscular Volume 94.9 fL (80.0-100.0); Nucleated RBC # (auto) 1.53 K/uL (0-0); Platelet Count 56 K/uL (130-400); RDW Coefficient of Variation 22.2 % (11.5-14.5); RDW Standard Deviation 67.5 fL (36.4-46.3); Red Blood Count 2.53 M/uL (3.93-5.22); White Blood Count 8.06 K/ul (4.8-10.8)
[2022-02-19 08:27] LABS: Albumin Globulin Ratio 0.6 (0.9-2); Albumin Level 2.2 gm/dl (3.4-5.0); Bilirubin,Total 2.8 mg/dl (0.2-1.0); Calcium 7.9 mg/dl (8.5-10.1); Creatinine Clr Calc Pharmacy 55.9 ml/min; Est GFR (African American) 72.4 ml/min; Est GFR (Non-African American) 62.5 ml/min; Potassium 3.6 mmol/L (3.5-5.1); Total Protein 6.2 gm/dl (6.0-8.3)
[2022-02-19] MEDS: ANASTROZOLE 1 MG TAB PO SCH (08:32)
[2022-02-19] MEDS: ADVANCED PROBIOTIC 1250 MG CAPSULE PO SCH (08:33)
[2022-02-19] MEDS: busPIRone 5 MG TAB PO SCH ×2 (08:33→21:01)
[2022-02-19] MEDS: FAMOTIDINE 20 MG TAB PO SCH ×2 (08:33→21:02)
[2022-02-19] MEDS: POTASSIUM CHLORIDE 10 MEQ TABCR PO SCH ×2 (08:34→21:01)
[2022-02-19] MEDS: FUROSEMIDE INJ 20 MG/2 ML VIAL IV SCH ×2 (08:42→17:30)
--- NOTE | 2022-02-19 15:42 | Hospitalist Progress Note ---
Date of Service February 19, 2022 Assessment & Plan (1) GASTON (dyspnea on exertion): (2) Pleural effusion: (3) Anemia: (4) Abdominal ascites: (5) Malignant ascites: (6) Elevated LFTs: (7) Breast cancer: Plan: Metastatic Breast cancer Malignant ascites, possible malignant pleural effusion Metastatic disease to liver, bone ER positive, CT negative H/O chemotherapy, radiation, surgery Fluid overload -CXR:Left larger than right pleural effusions with bibasilar consolidation. These have modestly increased in size as compared to 02/06/2022. Diffuse bony metastatic disease. -ECHO:normal biventricular systolic function -Follows with [facility] oncology as outpatient Monitor volume status Appreciate pulmonology, cardiology, GI input Patient prefers to continue chemotherapy if offered Needs follow-up with oncology upon discharge Ultrasound showed only minimal ascites, so unable to perform paracentesis Pulmonology recommends to avoid thoracentesis and continue diuresis for now Continue IV Lasix Continue fluid restriction We will repeat chest x-ray tomorrow Anemia of chronic disease No obvious bleeding issues Thrombocytopenia S/P PRBC Monitor CBC Hb 7.7 today H/O PVC S/P ablation Transaminitis Likely due to liver mets, COVID Outpatient liver biopsy consistent with metastatic breast cancer Monitor LFTs LFTs slowly improving (8) COVID-19: Plan: Tested positive for COVID Currently on room air Continue supportive care Plan Continue home famotidine and celexa DVT Px SCDs Admission and Anticipated Discharge Date Admission Date: February 13, 2022 Subjective Patient is seen and examined at bedside States feeling well Denies any chest pain, dizziness, abdominal pain, cough, dyspnea Hb 7.7 today Saturating well on minimal oxygen Discussed with patient's family at bedside Review of Systems Review of Systems: All systems reviewed & are unremarkable except as noted in Subjective Physical Exam Physical Exam: Physical Exam: Vitals signs as noted above General Appearance: Chronic ill-appearing, no apparent distress Head: normocephalic, Atraumatic Eyes: normal inspection, EOMI Neck: supple, Trachea midline Respiratory/Chest: Decreased breath sounds, CTA, No accessory muscle use Cardiovascular: S1, S2, No murmur Abdomen/GI:Soft, mildly distended, non tender, Bowel sounds present Extremities/Musculoskeletal:normal inspection, + edema Neurologic/Psych:AAOX3, grossly no focal neurological deficits Skin: normal color, warm Results & Data Results & Data ([facility]) Vital Signs (Past 12 Hours) Vital Signs Temp Pulse Pulse Resp BP Pulse Ox O2 Del Method 02/19/22 15:18 83 02/19/22 14:56 36.5 C 82 17 123/71 98 Nasal Cannula 02/19/22 11:58 36.5 C 79 19 120/68 92 Room Air 02/19/22 08:00 85 02/19/22 09:43 Nasal Cannula 02/19/22 07:47 36.5 C 77 17 116/68 96 Nasal Cannula O2 Flow Rate 02/19/22 15:18 02/19/22 14:56 2 02/19/22 11:58 02/19/22 08:00 02/19/22 09:43 2 02/19/22 07:47 2 Laboratory Results Short CBC 02/19/22 Range/Units 07:03 WBC 8.06 (4.8-10.8) K/ul Hgb 7.7 L (12.0-16.0) g/dl Hct 24.0 L (34.1-44.9) % Plt Count 56 L (130-400) K/uL BMP 02/19/22 07:03 Sodium 133 L Potassium 3.6 Chloride 102 Carbon Dioxide 25 BUN 32 H Creatinine 1.00 Glucose 91 Calcium 7.9 L Liver Function 02/19/22 Range/Units 07:03 Total Bilirubin 2.8 H (0.2-1.0) mg/dl AST 135 H (13-39) U/L ALT 34 (7-52) U/L Alkaline Phosphatase 355 H (34-104) U/L Albumin 2.2 L (3.4-5.0) gm/dl (1) Anemia Anemia type: unspecified type Qualified Code(s): D64.9 - Anemia, unspecified (2) Abdominal ascites Ascites type: other type Qualified Code(s): R18.8 - Other ascites
[2022-02-19] MEDS: CITALOPRAM 20 MG TAB PO SCH (20:59)
[2022-02-19] MEDS: METOPROLOL SUCC 25MG EXT REL TAB PO SCH (20:59)
--- NOTE | 2022-02-20 07:36 | XRay Report ---
XR chest 1V portable HISTORY: 57 years-old Female Hypoxia. Acute hypoxia COMPARISON: Chest radiograph 02/18/2022 TECHNIQUE: AP view of the chest FINDINGS: Diffuse sclerotic osseous metastasis are again noted. Cardiac silhouette is enlarged. Interstitial co arsening with right greater left airspace opacities are redemonstrated, slightly improved. Small pleu ral effusions. No pneumothorax. Postoperative changes within the breasts again noted. IMPRESSION: 1. Interstitial coarsening with right greater than left airspace opacities suggestive of asymmetric p ulmonary edema are redemonstrated, slightly improved from 02/18/2022. 2. Unchanged small pleural effusions. 3. Osseous metastasis redemonstrated. ACT 112: Negative or not required by law. The above report was generated using voice recognition software. It may contain grammatical, syntax o r spelling errors. Electronically signed by: Reinier Huertas M.D. 02/20/2022 7:33 AM
[2022-02-20 08:18] LABS: Hematocrit (blood only) 24.5 % (34.1-44.9); Hemoglobin 7.9 g/dl (12.0-16.0); Mean Corpuscular Hemoglobin 30.5 pg (25.0-34.0); Mean Corpuscular Hgb Conc 32.2 g/dL (32.0-36.0); Mean Corpuscular Volume 94.6 fL (80.0-100.0); Nucleated RBC # (auto) 1.37 K/uL (0-0); Nucleated RBC % (auto) 17.3 %; Platelet Count 67 K/uL (130-400); RDW Coefficient of Variation 22.4 % (11.5-14.5); RDW Standard Deviation 71.1 fL (36.4-46.3); Red Blood Count 2.59 M/uL (3.93-5.22)
[2022-02-20 08:20] LABS: Albumin Globulin Ratio 0.5 (0.9-2); Albumin Level 2.2 gm/dl (3.4-5.0); BUN Creatinine Ratio 33.7 (10-20); Bilirubin,Total 2.8 mg/dl (0.2-1.0); Calcium 8.1 mg/dl (8.5-10.1); Creatinine Clr Calc Pharmacy 55.3 ml/min; Est GFR (African American) 71.6 ml/min; Est GFR (Non-African American) 61.7 ml/min; Globulin 4.2 gm/dl (2.5-4.0); Potassium 3.9 mmol/L (3.5-5.1); Total Protein 6.4 gm/dl (6.0-8.3)
[2022-02-20] MEDS: ANASTROZOLE 1 MG TAB PO SCH (08:42)
[2022-02-20] MEDS: FAMOTIDINE 20 MG TAB PO SCH (08:53)
[2022-02-20] MEDS: busPIRone 5 MG TAB PO SCH (08:53)
[2022-02-20] MEDS: POTASSIUM CHLORIDE 10 MEQ TABCR PO SCH (08:53)
[2022-02-20] MEDS: ADVANCED PROBIOTIC 1250 MG CAPSULE PO SCH (08:54)
[2022-02-20] MEDS: FUROSEMIDE INJ 20 MG/2 ML VIAL IV SCH (08:55)
--- NOTE | 2022-02-20 14:02 | Hospitalist Progress Note ---
Date of Service February 20, 2022 Assessment & Plan (1) GASTON (dyspnea on exertion): (2) Pleural effusion: (3) Anemia: (4) Abdominal ascites: (5) Malignant ascites: (6) Elevated LFTs: (7) Breast cancer: Plan: Metastatic Breast cancer Malignant ascites, possible malignant pleural effusion Metastatic disease to liver, bone ER positive, [place] negative H/O chemotherapy, radiation, surgery Fluid overload -CXR:Left larger than right pleural effusions with bibasilar consolidation. These have modestly increased in size as compared to 02/06/2022. Diffuse bony metastatic disease. -ECHO:normal biventricular systolic function -Follows with [facility] oncology as outpatient Monitor volume status Appreciate pulmonology, cardiology, GI input Patient prefers to continue chemotherapy if offered Needs follow-up with oncology upon discharge Ultrasound showed only minimal ascites, so unable to perform paracentesis Pulmonology recommends to avoid thoracentesis and continue diuresis for now Continue IV Lasix Continue fluid restriction Chest x-ray today showed slightly improved left airspace opacities, also noted small pleural effusions. 2 step: Needs 1 L supplemental oxygen with activity Advised to follow-up with oncology, pulmonology upon discharge Anemia of chronic disease No obvious bleeding issues Thrombocytopenia S/P PRBC Monitor CBC Hb 7.9 today H/O PVC S/P ablation Transaminitis Likely due to liver mets, COVID Outpatient liver biopsy consistent with metastatic breast cancer Monitor LFTs LFTs slowly improving (8) COVID-19: Plan: Tested positive for COVID Currently on room air Continue supportive care Plan Continue home famotidine and celexa DVT Px SCDs Admission and Anticipated Discharge Date Admission Date: February 13, 2022 Subjective Patient is seen and examined at bedside States feeling well Denies any chest pain, dizziness, abdominal pain, cough, dyspnea Hb 7.7 today Saturating well on minimal oxygen Discussed with patient's family at bedside Review of Systems Review of Systems: All systems reviewed & are unremarkable except as noted in Subjective Physical Exam Physical Exam: Physical Exam: Vitals signs as noted above General Appearance: Chronic ill-appearing, no apparent distress Head: normocephalic, Atraumatic Eyes: normal inspection, EOMI Neck: supple, Trachea midline Respiratory/Chest: Decreased breath sounds, CTA, No accessory muscle use Cardiovascular: S1, S2, No murmur Abdomen/GI:Soft, mildly distended, non tender, Bowel sounds present Extremities/Musculoskeletal:normal inspection, + edema Neurologic/Psych:AAOX3, grossly no focal neurological deficits Skin: normal color, warm Results & Data Results & Data ([facility]) Vital Signs (Past 12 Hours) Vital Signs Temp Pulse Pulse Pulse Pulse Pulse Pulse 02/20/22 13:36 98 H 104 H 85 84 02/20/22 12:11 36.8 C 91 H 02/20/22 08:52 02/20/22 06:01 82 02/20/22 07:09 36.7 C 83 02/20/22 03:10 36.9 C 86 Resp Resp Resp Resp Resp BP Pulse Ox 02/20/22 13:36 22 22 20 18 02/20/22 12:11 16 112/73 95 02/20/22 08:52 02/20/22 06:01 02/20/22 07:09 18 116/69 92 02/20/22 03:10 16 104/55 L 97 Pulse Ox Pulse Ox Pulse Ox Pulse Ox O2 Del Method O2 Flow Rate O2 Flow Rate 02/20/22 13:36 94 85 L 96 92 1 02/20/22 12:11 Nasal Cannula 1 02/20/22 08:52 Nasal Cannula 1 02/20/22 06:01 02/20/22 07:09 Nasal Cannula 1 02/20/22 03:10 Nasal Cannula 1 (1) Anemia Anemia type: unspecified type Qualified Code(s): D64.9 - Anemia, unspecified (2) Abdominal ascites Ascites type: other type Qualified Code(s): R18.8 - Other ascites
--- NOTE | 2022-02-20 14:14 | Discharge Summary ---
Date of Service February 20, 2022 Admission HPI Per Admitting Provider CHIEF COMPLAINT: Shortness of breath. HISTORY OF PRESENT ILLNESS: This is a 57-year-old female with past medical history significant for invasive lobular carcinoma of right breast that was originally diagnosed on 04/07/2019, ER positive, NE positive, HER-2 Alissa negative, metastatic to axillary lymph node and extensive osseous metastasis, status post neoadjuvant dose-dense AC followed by weekly paclitaxel, which was completed in mid September 2020, right mastectomy and right axillary lymph node dissection. Final pathology showed a significant residual lobular cancer, multiple foci, grade 2,alergets faci 2.5cm, one intramammary lymph node and 7 sentinel lymph nodes positive for metastatic disease. She completed adjuvant radiation treatment at [facility]. She also had left mastectomy, which showed small foci of lobular carcinoma in situ, now on anastrozole every day. As per heme/onco notes from 06/2021 she has high risk for recurrent disease, based on large primary tumor,and insignificant response to the chemotherapy . She has bilateral breast reconstruction with placement of expanders. Past medical history also includes chronic systolic CHF with EF of 25%, hypertension, anemia, ventricular bigeminy. She received Zometa infusion after that, she was found to have elevated LFTs. She recently was admitted for shortness of breath and significant anemia, hemoglobin of 5.7 without overt bleeding. She was given 2 units of PRBCs and felt better and hemoglobin was 8.5 the next day. The patient underwent paracentesis with resulting low SAAG gradient. Cipro was started for empiric treatment for SBP per GI team and she was discharged to follow up .Ascitic fluid cytology was showing malignant cells consistent with metastatic adenocarcinoma of breast primary, estrogen receptor positive with progesterone receptor negative, HER2 negative and she also followed with GI and a left liver lobe needle core biopsy showed metastatic carcinoma consistent with breast origin. The patient comes today because of shortness of breath, dizzy while ambulating and was worried that she again has anemia, so came here. Hemoglobin stable at 8. She has some lower extremity swelling. Chest x-ray shows pleural effusions. Denies any chest pain. No cough, no fevers, no nausea or vomiting. No abdominal pain. Appetite is down. No difficulty swallowing. Has mild headache. No blurred visions. No blood in the stools or black stools. Urine is dark in color. Her COVID test came back positive. Admission Exam Per Admitting Provider PHYSICAL EXAMINATION: GENERAL: The patient is of moderate build, not in acute distress. VITAL SIGNS: Temperature 37.1, pulse 85, respiratory rate 20, blood pressure 104/65, oxygen 93% on room air. HEENT: Pupils equal, round and reactive to light. Oral mucosa moist. NECK: No JVD, no neck masses. CARDIOVASCULAR: S1 and S2 heard. Regular rate and rhythm. No murmur, no gallop. RESPIRATORY SYSTEM: Normal AP diameter. No accessory muscle use. Mild bibasilar crackles. No wheezing. ABDOMEN: Soft, bowel sounds present, somewhat tense, mild distention. No guarding, no rigidity. CENTRAL NERVOUS SYSTEM: Cranial nerves II through XII are grossly intact, nonfocal. EXTREMITIES: Bilateral lower extremity pedal edema present, no erythema seen. Principal Diagnosis Metastatic Breast cancer Malignant ascites Malignant pleural effusion Anemia of chronic disease Transaminitis COVID-19 Infection Discharge Data Allergies Allergy/AdvReac Type Severity Reaction Status Date / Time Penicillins Allergy Unknown Turned blue Verified 02/13/22 20:25 Consultations 02/13/22 19:19 ED Decision to Admit Stat 02/14/22 08:00 Consult Cardiology Routine Consult Pulmonology Routine 02/14/22 09:43 Consult Gastroenterology Routine 02/14/22 10:56 Consult Palliative Care Routine Procedures Performed Laboratory Results WBC 7.90 K/ul (4.8-10.8) 02/20/22 07:30 RBC 2.59 M/uL (3.93-5.22) L 02/20/22 07:30 Hgb 7.9 g/dl (12.0-16.0) L 02/20/22 07:30 Hct 24.5 % (34.1-44.9) L 02/20/22 07:30 MCV 94.6 fL (80.0-100.0) 02/20/22 07:30 MCH 30.5 pg (25.0-34.0) 02/20/22 07:30 MCHC 32.2 g/dL (32.0-36.0) 02/20/22 07:30 RDW Std Deviation 71.1 fL (36.4-46.3) H 02/20/22 07:30 RDW Coeff of Dmitry 22.4 % (11.5-14.5) H 02/20/22 07:30 Plt Count 67 K/uL (130-400) L 02/20/22 07:30 MPV 10.1 fL (9.4-12.3) 02/17/22 08:05 Immature Gran % (Auto) 3.1 % 02/14/22 06:18 Neut % (Auto) 50.3 % 02/14/22 06:18 Lymph % (Auto) 26.2 % 02/14/22 06:18 [place] % (Auto) 18.5 % 02/14/22 06:18 Eos % (Auto) 0.9 % 02/14/22 06:18 Baso % (Auto) 1.0 % 02/14/22 06:18 Neut # (Auto) 4.09 K/uL (1.4-6.5) 02/14/22 06:18 Lymph # (Auto) 2.13 K/uL (1.2-3.4) 02/14/22 06:18 [place] # (Auto) 1.50 K/uL (0.24-0.82) H 02/14/22 06:18 Eos # (Auto) 0.07 K/uL (0-0.50) 02/14/22 06:18 Baso # (Auto) 0.08 K/uL (0-0.2) 02/14/22 06:18 Immature Gran # (Auto) 0.25 K/uL (0.00-0.02) H 02/14/22 06:18 Absolute Nucleated RBC 1.37 K/uL (0-0) H 02/20/22 07:30 Nucleated RBC % (auto) 17.3 % 02/20/22 07:30 Polychromasia 2+ 02/14/22 06:18 Spherocytes 1+ 02/14/22 06:18 Pappenheimer Bodies 1+ 02/14/22 06:18 Acanthocytes (Spur) 1+ 02/14/22 06:18 Schistocytes 1+ 02/14/22 06:18 PT 13.5 Seconds (9.0-12.0) H 02/13/22 13:00 INR 1.3 (0.9-1.1) H 02/13/22 13:00 APTT 33.0 Seconds (21.0-31.0) H 02/13/22 13:00 PTT Ratio 1.2 02/13/22 13:00 Sodium 132 mmol/L (136-145) L 02/20/22 07:30 Potassium 3.9 mmol/L (3.5-5.1) 02/20/22 07:30 Chloride 101 mmol/L (98-107) 02/20/22 07:30 Carbon Dioxide 27 mmol/L (21-32) 02/20/22 07:30 Anion Gap 4 (3-11) 02/20/22 07:30 BUN 34 mg/dl (6-23) H 02/20/22 07:30 Creatinine 1.01 mg/dl (0.6-1.2) 02/20/22 07:30 Est Cr Clr Drug Dosing 55.3 ml/min 02/20/22 07:30 Est GFR ( Amer) 71.6 ml/min 02/20/22 07:30 Est GFR (Non-Af Amer) 61.7 ml/min 02/20/22 07:30 BUN/Creatinine Ratio 33.7 (10-20) H 02/20/22 07:30 Glucose 87 mg/dl (70-99(Fasting)) 02/20/22 07:30 Calcium 8.1 mg/dl (8.5-10.1) L 02/20/22 07:30 Magnesium 1.8 mg/dl (1.7-2.4) 02/14/22 06:18 Iron 160 mcg/dl (35-150) H 02/17/22 08:05 Unsaturated IBC < 55 mcg/dl (155-355) L 02/17/22 08:05 Transferrin 131 mg/dl (200-360) L 02/17/22 08:05 Ferritin 3437.0 ng/ml (8-388) H 02/17/22 08:05 Total Bilirubin 2.8 mg/dl (0.2-1.0) H 02/20/22 07:30 Direct Bilirubin 1.3 mg/dl (0-0.2) H 02/17/22 08:05 AST 140 U/L (13-39) H 02/20/22 07:30 ALT 36 U/L (7-52) 02/20/22 07:30 Alkaline Phosphatase 349 U/L (34-104) H 02/20/22 07:30 Troponin I High Sens 18.3 pg/ml (0-14) H D 02/13/22 23:11 C-Reactive Protein 4.11 mg/dl (0-0.5) H 02/16/22 06:51 B-Natriuretic Peptide 60 pg/ml (0-100) 02/13/22 23:11 Total Protein 6.4 gm/dl (6.0-8.3) 02/20/22 07:30 Albumin 2.2 gm/dl (3.4-5.0) L 02/20/22 07:30 Globulin 4.2 gm/dl (2.5-4.0) H 02/20/22 07:30 Albumin/Globulin Ratio 0.5 (0.9-2) L 02/20/22 07:30 Procalcitonin 0.30 ng/ml (0-0.5) 02/16/22 06:51 Urine Color Dark Yellow 02/16/22 12:15 Urine Appearance Clear (Clear) 02/16/22 12:15 Urine pH 5.0 (4.5-7.5) 02/16/22 12:15 Ur Specific [place] 1.010 (1.000-1.030) 02/16/22 12:15 Urine Protein Negative (Negative) 02/16/22 12:15 Urine Glucose (UA) Negative (Negative) 02/16/22 12:15 Urine Ketones Negative (Negative) 02/16/22 12:15 Urine Blood Negative (Negative) 02/16/22 12:15 Urine Nitrite Negative (Negative) 02/16/22 12:15 Urine Bilirubin Negative (Negative) 02/16/22 12:15 Urine Urobilinogen Negative (Negative) 02/16/22 12:15 Ur Leukocyte Esterase Negative (Negative) 02/16/22 12:15 SARS-CoV-2 (PCR) POSITIVE (Negative) A* 02/13/22 19:55 Influenza Type A (PCR) Negative (Neg) 02/13/22 19:55 Influenza Type B (PCR) Negative (Neg) 02/13/22 19:55 RSV (RT-PCR) Negative (Neg) 02/13/22 19:55 Blood Type O Negative 02/18/22 09:00 Antibody Screen NEGATIVE 02/18/22 09:00 Crossmatch See Detail 02/18/22 09:00 Impressions Abdomen Ultrasound 02/16/22 08:20 US abdomen ltd ascites HISTORY: 57 years-old Female Ascites recurrent ascites COMPARISON: Ultrasound-guided paracentesis 02/06/2022 TECHNIQUE: Multiple real-time sonographic images of the abdomen were obtained assessing grayscale appearance FINDINGS: There is only a small amount of ascites noted throughout the abdomen. Cirrhotic liver redemonstrated. IMPRESSION: Due to the small amount of abdominal ascites and patient's positive Covid status, a therapeutic paracentesis was not performed. ACT 112: Negative or not required by law. The above report was generated using voice recognition software. It may contain grammatical, syntax or spelling errors. Electronically signed by: Reinier Huertas M.D. 02/16/2022 1:27 PM Chest X-Ray 02/20/22 07:00 XR chest 1V portable HISTORY: 57 years-old Female Hypoxia. Acute hypoxia COMPARISON: Chest radiograph 02/18/2022 TECHNIQUE: AP view of the chest FINDINGS: Diffuse sclerotic osseous metastasis are again noted. Cardiac silhouette is enlarged. Interstitial coarsening with right greater left airspace opacities are redemonstrated, slightly improved. Small pleural effusions. No pneumothorax. Postoperative changes within the breasts again noted. IMPRESSION: 1. Interstitial coarsening with right greater than left airspace opacities suggestive of asymmetric pulmonary edema are redemonstrated, slightly improved from 02/18/2022. 2. Unchanged small pleural effusions. 3. Osseous metastasis redemonstrated. ACT 112: Negative or not required by law. The above report was generated using voice recognition software. It may contain grammatical, syntax or spelling errors. Electronically signed by: Reinier Huertas M.D. 02/20/2022 7:33 AM Ordered Studies 02/14/22 08:08 US point of care ultrasound Urgent 02/16/22 08:20 US abdomen ltd ascites Urgent Hospital Course (1) GASTON (dyspnea on exertion): (2) Pleural effusion: (3) Anemia: (4) Abdominal ascites: (5) Malignant ascites: (6) Elevated LFTs: (7) Breast cancer: Metastatic Breast cancer Malignant ascites, possible malignant pleural effusion Metastatic disease to liver, bone ER positive, NE negative H/O chemotherapy, radiation, surgery Fluid overload -CXR:Left larger than right pleural effusions with bibasilar consolidation. These have modestly increased in size as compared to 02/06/2022. Diffuse bony metastatic disease. -ECHO:normal biventricular systolic function -Follows with [facility] oncology as outpatient Monitor volume status Appreciate pulmonology, cardiology, GI input Patient prefers to continue chemotherapy if offered Needs follow-up with oncology upon discharge Ultrasound showed only minimal ascites, so unable to perform paracentesis Pulmonology recommends to avoid thoracentesis and continue diuresis for now Continue IV Lasix Continue fluid restriction Chest x-ray today showed slightly improved left airspace opacities, also noted small pleural effusions. 2 step: Needs 1 L supplemental oxygen with activity Advised to follow-up with oncology, pulmonology upon discharge Anemia of chronic disease No obvious bleeding issues Thrombocytopenia S/P PRBC Monitor CBC Hb 7.9 today H/O PVC S/P ablation Transaminitis Likely due to liver mets, COVID Outpatient liver biopsy consistent with metastatic breast cancer Monitor LFTs LFTs slowly improving (8) COVID-19: Tested positive for COVID Currently on room air Continue supportive care Plan Continue home famotidine and celexa DVT Px SCDs Total Time Total Time Spent Total Time Spent (In Minutes): 57 minutes Discharge Plan Discharge Items Patient Disposition: Home - Self-Care Reason For Visit: SOB Discharge Diagnosis: Metastatic Breast cancer Malignant ascites Malignant pleural effusion Anemia of chronic disease Transaminitis COVID-19 Infection Activity: Per Instructions section Exercise/Sports: Wait until after follow-up appointment Non-emergency contact: Primary Care Provider, Oncologist and Echo Tech Call non-emergency contact if: you have any medication questions, your symptoms worsen, your pain is concerning for you and you have a fever Follow-up/Referrals: Cheko Randhawa MD [Primary Care Provider] - Diet: Regular Fluids: 2000ml (8 cups) Addtl Attending Provider Instructions: Follow-up with your primary care physician Dr. Randhawa in 1 week as advised Follow-up with your oncologist Dr. 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 --Get Blood Test (CBC, CMP) in 1 week and follow up with Dr.Nilesh Lambert for further recommendations. Seek immediate medical attention if your symptoms reoccur or worsen Please take all medications as instructed on discharge list below. Please call if you have any questions or problems. You can reach a [facility] on duty at [facility] 24 hours a day by calling [phone] Home Isolation COVID-19 Instructions The following information about Home Isolation is from the CDC Website: https://www.cdc.gov/coronavirus/2019-ncov/hcp/cuvsdgeq-pzfyhof-dxxpnj.html Stay home except to get medical care People who are mildly ill with COVID-19 are able to isolate at home during their illness. You should restrict activities outside your home, except for getting medical care. Do not go to work, school, or public areas. Avoid using public transportation, ride-sharing, or taxis. Separate yourself from other people and animals in your home People: As much as possible, you should stay in a specific room and away from other people in your home. Also, you should use a separate bathroom, if available. Animals: You should restrict contact with pets and other animals while you are sick with COVID-19, just like you would around other people. Although there have not been reports of pets or other animals becoming sick with COVID-19, it is still recommended that people sick with COVID-19 limit contact with animals until more information is known about the virus. When possible, have another member of your household care for your animals while you are sick. If you are sick with COVID-19, avoid contact with your pet, including petting, snuggling, being kissed or licked, and sharing food. If you must care for your pet or be around animals while you are sick, wash your hands before and after you interact with pets and wear a face mask. Call ahead before visiting your doctor If you have a medical appointment, call the healthcare provider and tell them that you have or may have COVID-19. This will help the healthcare providers office take steps to keep other people from getting infected or exposed. Wear a face mask You should wear a face mask when you are around other people (e.g., sharing a room or vehicle) or pets and before you enter a healthcare providers office. If you are not able to wear a face mask (for example, because it causes trouble breathing), then people who live with you should not stay in the same room with you, or they should wear a face mask if they enter your room. Cover your coughs and sneezes Cover your mouth and nose with a tissue when you cough or sneeze. Throw used tissues in a lined trash can. Immediately wash your hands with soap and water for at least 20 seconds or, if soap and water are not available, clean your hands with an alcohol-based hand winder helper that contains at least 60% alcohol. Clean your hands often Wash your hands often with soap and water for at least 20 seconds, especially after blowing your nose, coughing, or sneezing; going to the bathroom; and before eating or preparing food. If soap and water are not readily available, use an alcohol-based hand winder helper with at least 60% alcohol, covering all surfaces of your hands and rubbing them together until they feel dry. Soap and water are the best option if hands are visibly dirty. Avoid touching your eyes, nose, and mouth with unwashed hands. Avoid sharing personal household items You should not share dishes, drinking glasses, cups, eating utensils, towels, or bedding with other people or pets in your home. After using these items, they should be washed thoroughly with soap and water. Clean all high-touch surfaces everyday High touch surfaces include counters, tabletops, doorknobs, bathroom fixtures, toilets, phones, keyboards, tablets, and bedside tables. Also, clean any surfaces that may have blood, stool, or body fluids on them. Use a household cleaning spray or wipe, according to the label instructions. Labels contain instructions for safe and effective use of the cleaning product including precautions you should take when applying the product, such as wearing gloves and making sure you have good ventilation during use of the product. Monitor your symptoms Seek prompt medical attention if your illness is worsening (e.g., difficulty breathing).Beforeseeking care, call your healthcare provider and tell them that you have, or are being evaluated for, COVID-19. Put on a face mask before you enter the facility. These steps will help the healthcare providers office to keep other people in the office or waiting room from getting infected or exposed. Ask your healthcare provider to call the local or state health department. Persons who are placed under active monitoring or facilitated self- monitoring should follow instructions provided by their local health department or occupational health professionals, as appropriate. When working with your local health department check their available hours. If you have a medical emergency and need to call 911, notify the dispatch personnel that you have, or are being evaluated for COVID-19. If possible, put on a face mask before emergency medical services arrive. Discontinuing home isolation Patients with confirmed COVID-19 should remain under home isolation precautions until the risk of secondary transmission to others is thought to be low. The decision to discontinue home isolation precautions should be made on a [id number] basis, in consultation with healthcare providers and [facility] and local health departments. Pending Studies at Discharge: No Stand-Alone Forms: My [facility], Smoking Cessation Medications and DC Order Prescriptions: New potassium chloride 10 mEq Tablet,Er Particles/Crystals 10 meq PO BID Qty: 60 0RF furosemide [Lasix] 20 mg tablet 20 mg PO BID Qty: 60 0RF Continued anastrozole 1 mg Tablet 1 mg PO QAM citalopram [Celexa] 10 mg Tablet 10 mg PO HS famotidine 20 mg Tablet 20 mg PO [facility] Advanced Probiotic 625 mg (10 billion cell) Capsule 2 cap PO DAILY Qty: 20 0RF metoprolol succinate 25 mg tablet extended release 24 hr 25 mg PO HS buspirone 10 mg tablet 10 mg PO [facility] milk thistle 500 mg Capsule 1,000 mg PO QAM Rx Instructions: give with meal/snack Discontinued ciprofloxacin HCl 500 mg Tablet 500 mg PO BID Qty: 20 0RF Discharge Orders: Discharge Order (Routine); Ordered 02/20/22 Ordered By: Sarabjit Lopez Admission Data Admit Date/Time: 02/13/22 21:24 Attending Provider: Sarabjit Loepz Admit Provider: Graeme Wyatt Primary Care Provider: Cheko Randhawa Other Providers: Graeme Wyatt ; Marcelino Harrell ; Nick Ibarra ; Mark Sandoval ; Giorgio Ribeiro ; Mukul Ramires ; Navdeep Gomez ; Sabina Conway ; Opal Rubio ; Nayeli Frausto ; John Kate ; Jil Chambers ; Nicole Canales ; Cassandra Weston
== END 2022-02-20 17:54 | disposition home or self-care (01) | DRG 597 ==
LOC: ED 11:52 → SUATTDRO 21:24 → EDINP 21:24 → 2S 02-14 01:09